=== PATIENT | male | born 1950 | race Caucasian/White ===

== ENCOUNTER 2017-10-04 19:53 | Emergency (ER) | payer MEDICARE, MEDICAID ==
[2017-10-04] MEDS ORDERED: BENZTROPINE MESYLATE 1 MG TABLET PO ONE (23:29)
[2017-10-04] MEDS ORDERED: PREGABALIN 50 MG CAPSULE PO ONE (23:29)
--- NOTE | 2017-10-04 23:34 | ER Document Report ---
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 The patient reports that as a dull, constant throbbing pain to the left neck worsened by range of motion of the neck. Nothing improves or worsens the pain. Patient states that he is also concerned that he has had difficulty sleeping and diffuse bilateral lower extremity pain after since his doctor discontinued his Lyrica stating he had "been on it too long". He has seen his primary care doctor regarding this neck pain and was told that it was likely musculoskeletal in origin but was concerned that the pain was not abating so came to the emergency department tonight. He denies any focal weakness, numbness, chest pain or shortness of breath. He did see a neurologist regarding his involuntary movement disorder and was told that he has tardive dyskinesia although has never been on antipsychotic in the past. TRAVEL OUTSIDE OF THE [place] IN LAST 30 DAYS: No - Related Data Allergies/Adverse Reactions: gabapentin [From Neurontin] Allergy (Verified 10/04/17 19:58) Past Medical History - General Information source: Patient, Relative - Social History Smoking Status: Never Smoker Frequency of alcohol use: None Drug Abuse: None Lives with: Family Family History: Reviewed & Not Pertinent - Past Medical History Cardiac Medical History: Reports: Hx Hypercholesterolemia, Hx Hypertension GI Medical History: Reports: Hx Gastroesophageal Reflux Disease Psychiatric Medical History: Reports: Hx Depression Past Surgical History: Reports: Hx Urinary Tract Surgery, Hx Vascular Surgery Review of Systems - Review of Systems Notes: Constitutional: Negative for fever. HENT: Negative for sore throat. Eyes: Negative for visual changes. Cardiovascular: Negative for chest pain. Respiratory: Negative for shortness of breath. Gastrointestinal: Negative for abdominal pain, vomiting or diarrhea. Genitourinary: Negative for dysuria. Musculoskeletal: Positive for left-sided neck pain Skin: Negative for rash. Neurological: Negative for headaches, weakness or numbness. 10 point ROS negative except as marked above and in HPI. Physical Exam - Vital signs Vitals: Temp Pulse Resp BP Pulse Ox 98.3 F 91 18 141/89 H 96 10/04/17 20:05 10/04/17 20:05 10/04/17 20:05 10/04/17 20:05 10/04/17 20:05 Interpretation: Normal Notes: PHYSICAL EXAMINATION: GENERAL: Well-appearing, well-nourished and in no acute distress. HEAD: Atraumatic, normocephalic. EYES: Pupils equal round and reactive to light, extraocular movements intact, sclera anicteric, conjunctiva are normal. ENT: nares patent, oropharynx clear without exudates. Moist mucous membranes. NECK: Normal range of motion, supple without lymphadenopathy LUNGS: Breath sounds clear to auscultation bilaterally and equal. No wheezes rales or rhonchi. HEART: Regular rate and rhythm without murmurs ABDOMEN: Soft, nontender, normoactive bowel sounds. No guarding, no rebound. No masses appreciated. EXTREMITIES: Normal range of motion, no pitting or edema. No cyanosis. Pain on palpation of the left sternocleidomastoid muscle. NEUROLOGICAL: Patient is moving almost uncontrollably. Really moving his head back and forth. Intermittently moving his bilateral upper and lower 70s without any specific repetitive pattern. Face symmetric. Tongue protrudes midline. Extraocular motions intact. Pupils are 2 mm and equally reactive. Normal speech, normal gait. 5 out of 5 strength in both the distal and proximal upper and lower extremities bilaterally. Sensation is grossly intact throughout. Finger to nose testing normal. Pronator drift normal. PSYCH: Mildly anxious SKIN: Warm, Dry, normal turgor, no rashes or lesions noted. Course - Re-evaluation Re-evalutation: 10/04/17 23:33 Patient presents with concerns of left-sided neck pain. Pain is likely secondary to the patient's involuntary movement disorder as the patient clearly moves his head and neck around vigorously almost continuously. He also has apparent involuntary movements involving the bilateral upper and lower extremities. He has seen a neurologist who diagnosed with tardive dyskinesia although this seems somewhat improbable as the patient has never been on antipsychotic of any kind. The patient is also requesting a refill of his Lyrica as he states that he has run out of this medication and has been unable to sleep since running out. No indication for labs or imaging. Patient's clinical history is consistent with a chronic involuntary movement disorder with associated musculoskeletal irritation of the sternocleidal mastoid muscle on the left. I have encouraged the patient follow-up with [facility] [facility] for reassessment as I am skeptical the initial diagnosis of tardive dyskinesia. Will also provide the patient a course of Cogentin and see if this improves his symptoms. At this time will discharge with return precautions and follow-up recommendations. Verbal discharge instructions given a the bedside and opportunity for questions given. Medication warnings reviewed. Patient is in agreement with this plan and has verbalized understanding of return precautions and the need for primary care follow-up in the next 24-72 hours. - Vital Signs Vital signs: Temp Pulse Resp BP Pulse Ox 98.0 F 85 19 121/86 H 98 10/04/17 23:52 10/04/17 23:52 10/04/17 23:52 10/04/17 23:52 10/04/17 23:52 Discharge - Discharge Clinical Impression: Dystonia, Involuntary movements, Neck pain on left side Condition: Good Disposition: HOME, SELF-CARE Additional Instructions: Please take Cogentin 1 mg twice daily for 2 weeks and see if this does not improve your symptoms. Your Lyrica has been represcribed. For your pain: Take ibuprofen 600 mg and acetaminophen 1000 mg every 6 hours together as needed for pain. May also apply topical lidocaine patches that can be purchased over-the- counter to the affected area. Return if you worsening of her symptoms, persistent vomiting or any other symptoms that are worrisome to you. Follow-up with neurology as we discussed. Prescriptions: Benztropine Mesylate [Cogentin 1 mg Tablet] 1 tab PO BID #30 tab Pregabalin [Lyrica 50 Mg Capsule] 50 mg PO TID #90 capsule Referrals: NELY RODRIGES MD [Primary Care Provider] - Follow up as needed
[2017-10-04 23:53] VITALS: BP 121/86
== END 2017-10-04 23:52 | disposition home or self-care (01) ==
LOC: EDSEX → ER 19:53
DX: G24.9 Dystonia, unspecified (principal); M54.2 Cervicalgia; M79.604 Pain in right leg; M79.605 Pain in left leg; I10 Essential (primary) hypertension; Z88.6 Allergy status to analgesic agent
CPT/HCPCS: 99283; A9270 ×2; J3490

== ENCOUNTER 2017-10-17 16:40 | Emergency (ER) | payer MEDICARE, MEDICAID ==
[2017-10-17 16:51] VITALS: BP 142/69
--- NOTE | 2017-10-17 17:25 | ER Document Report ---
ED Medical Screen (RME) - General Chief Complaint: Near Syncope Stated Complaint: POSSIBLE SYNCOPE Time Seen by Provider: 10/17/17 17:05 Mode of Arrival: Ambulatory Information source: Patient Notes: This is a 66-year-old man with a history of chronic neuropathic pain, and involuntary movement disorder, orthostatic hypotension, who presents to the emergency room after a fainting spell after getting up quickly. He denies chest pain, shortness of breath, nausea vomiting. He denies any new weakness. He does complain of some low back pain and a contusion over the right foot. TRAVEL OUTSIDE OF THE [place] IN LAST 30 DAYS: No - HPI Onset: Just prior to arrival Onset/Duration: Sudden Quality of pain: Stabbing Severity: Moderate Pain Level: 2 Associated Symptoms: denies: Chest pain, Fever, Shortness of breath Exacerbated by: Movement Relieved by: Denies Similar symptoms previously: No Recently seen / treated by doctor: No - Related Data Smoking: Non-smoker Frequency of alcohol use: None Drug Abuse: None Allergies/Adverse Reactions: gabapentin [From Neurontin] Allergy (Verified 10/17/17 16:41) Past Medical History - General Information source: Patient - Social History Chew tobacco use (# tins/day): No Frequency of alcohol use: None Drug Abuse: None Lives with: Family Family history: None - Past Medical History Cardiac Medical History: Reports: Hx Hypercholesterolemia, Hx Hypertension Neurological Medical History: Reports: Other - Involuntary movement disorder Renal/ Medical History: Denies: Hx Peritoneal Dialysis GI Medical History: Reports: Hx Gastroesophageal Reflux Disease Psychiatric Medical History: Reports: Hx Depression Past Surgical History: Reports: Hx Urinary Tract Surgery, Hx Vascular Surgery Review of Systems - Review of Systems Constitutional: denies: Chills, Fever EENT: No symptoms reported Cardiovascular: No symptoms reported Respiratory: No symptoms reported Gastrointestinal: No symptoms reported Genitourinary: No symptoms reported Male Genitourinary: No symptoms reported Musculoskeletal: See HPI Skin: No symptoms reported Hematologic/Lymphatic: No symptoms reported Neurological/Psychological: No symptoms reported Physical Exam - Vital signs Vitals: Temp Pulse Resp BP Pulse Ox 97.8 F 77 18 142/69 H 97 10/17/17 16:50 10/17/17 16:50 10/17/17 16:50 10/17/17 16:50 10/17/17 16:50 Notes: Physical exam: GENERAL: 86-year-old man, alert and oriented 3, distress HEAD: Atraumatic, normocephalic. EYES: Pupils equal round and reactive to light, extraocular movements intact, sclera anicteric, conjunctiva are normal. ENT: TMs normal, nares patent, oropharynx clear without exudates. Moist mucous membranes. NECK: Normal range of motion, supple without obvious mass or JVD. LUNGS: Breath sounds clear to auscultation bilaterally and equal. No wheezes rales or rhonchi. HEART: Regular rate and rhythm without murmurs, rubs or gallops. ABDOMEN: Soft, normoactive bowel sounds. No tenderness to palpation. No guarding, no rebound. No masses appreciated. EXTREMITIES: Normal range of motion, no pitting or edema. No clubbing or cyanosis. He does have some ecchymoses over the first and second metatarsals of the second foot. This good pulses distally. Good sensation. No bony crepitus. No tenderness. Mild tenderness over the sacrum and the back. NEUROLOGICAL: Cranial nerves II through XII grossly intact. Normal speech, moving all extremities. PSYCH: Normal mood, normal affect. SKIN: Warm, Dry, normal turgor, no rashes or lesions noted. Course - Vital Signs Vital signs: Temp Pulse Resp BP Pulse Ox 97.8 F 77 18 142/69 H 97 10/17/17 16:50 10/17/17 16:50 10/17/17 16:50 10/17/17 16:50 10/17/17 16:50 Doctor's Discharge - Discharge Clinical Impression: Orthostatic hypertension Condition: Stable Disposition: HOME, SELF-CARE Instructions: Orthostatic Hypotension ([facility]) Additional Instructions: Recommendations: Given your complicated medical picture, it is recommended that you have a good primary care doctor locally that can coordinate your care. Ultimately, many of your specialist care should continue at [facility]. I left the number for some internal medicine physicians that are affiliated with this hospital. Dr. Do Whitt [address], [place] [address] [phone] Dr La Address: [address] [place] [address] [place] [address] Dr Louis Address: [address] [place] [address] [place] [address] Other recommendations: Stay well hydrated (many of the medicines you are taking will try you out and worsen the orthostatic hypotension). Continue the Lyrica and amitriptyline for pain. Continue the other medicines. Return to the emergency room for worsening pain or any concerns or getting worse.
== END 2017-10-17 17:30 | disposition home or self-care (01) ==
LOC: ER 16:40
DX: I95.1 Orthostatic hypotension (principal); G62.9 Polyneuropathy, unspecified; M54.5 Low back pain; S90.31XA Contusion of right foot, initial encounter; W19.XXXA Unspecified fall, initial encounter
CPT/HCPCS: 99283

== ENCOUNTER 2018-05-20 19:02 | Emergency (ER) | payer MEDICARE, MEDICAID ==
--- NOTE | 2018-05-20 19:37 | ER Document Report ---
ED Medical Screen (RME) - General Chief Complaint: Altered Mental Status Stated Complaint: confusion, pain, slurred speach Time Seen by Provider: 05/20/18 19:30 Notes: 67-year-old male patient brought the emergency room by his daughter for altered mental status manifested as confusion, auditory hallucinations, and slurred speech. Started about 11 PM today after he left a doctor's office appointment. He has had a similar episode 2 years ago and a neurologist in [place] worked him up and started him on Elavil. Another neurologist stopped the Elavil about 1 year ago. He has seen Dr. Evangelista here locally wants for his tardive dyskinesia and was told it could not be cured. He does have a primary care provider here locally. His symptoms have cleared at this time but is here to be checked. I have greeted and performed a rapid initial assessment of this patient. A comprehensive ED assessment and evaluation of the patient, analysis of test results and completion of the medical decision making process will be conducted by additional ED providers. TRAVEL OUTSIDE OF THE [place] IN LAST 30 DAYS: No - Related Data Allergies/Adverse Reactions: gabapentin [From Neurontin] Allergy (Verified 10/17/17 16:41) Past Medical History - Social History Family history: None - Past Medical History Cardiac Medical History: Reports: Hx Hypercholesterolemia, Hx Hypertension Renal/ Medical History: Denies: Hx Peritoneal Dialysis GI Medical History: Reports: Hx Gastroesophageal Reflux Disease Psychiatric Medical History: Reports: Hx Depression Past Surgical History: Reports: Hx Urinary Tract Surgery, Hx Vascular Surgery Physical Exam - Vital signs Vitals: Temp Pulse Resp BP Pulse Ox 98.7 F 78 20 120/66 93 05/20/18 19:13 05/20/18 19:13 05/20/18 19:13 05/20/18 19:13 05/20/18 19:13 Course - Vital Signs Vital signs: Temp Pulse Resp BP Pulse Ox 98.7 F 78 20 120/66 93 05/20/18 19:13 05/20/18 19:13 05/20/18 19:13 05/20/18 19:13 05/20/18 19:13
--- NOTE | 2018-05-20 20:11 | RADIOLOGY REPORT (SQ) ---
EXAM DESCRIPTION: CT HEAD WITHOUT COMPLETED DATE/TIME: 05/20/2018 8:02 pm REASON FOR STUDY: AMS COMPARISON: None. TECHNIQUE: Axial images acquired through the brain without intravenous contrast. Images reviewed wi th bone, brain and subdural windows. Additional sagittal and coronal reconstructions were generated. Images stored on PACS. All CT scanners at this facility use dose modulation, iterative reconstruction, and/or weight based d osing when appropriate to reduce radiation dose to as low as reasonably achievable (ALARA). [facility]: Dose Right [facility]: CareDose [facility]: Dose Right [facility]: Teradose 4D [facility]: MindBites RADIATION DOSE: CT Rad equipment meets quality standard of care and radiation dose reduction techniq ues were employed. CTDIvol: 53.2 mGy. DLP: 964 mGy-cm. mGy. LIMITATIONS: None. FINDINGS: VENTRICLES: Normal size and contour. CEREBRUM: No masses. No hemorrhage. No midline shift. No evidence for acute infarction. Normal gra y/white matter differentiation. No areas of low density in the white matter. CEREBELLUM: No masses. No hemorrhage. No alteration of density. No evidence for acute infarction. EXTRAAXIAL SPACES: No fluid collections. No masses. ORBITS AND GLOBE: No intra- or extraconal masses. Normal contour of globe without masses. CALVARIUM: No fracture. PARANASAL SINUSES: No fluid or mucosal thickening. SOFT TISSUES: No mass or hematoma. OTHER: No other significant finding. IMPRESSION: NORMAL BRAIN CT WITHOUT CONTRAST. EVIDENCE OF ACUTE STROKE: NO. COMMENT: Quality ID # [id number]: Final reports with documentation of one or more dose reduction techniques (e.g., Automated exposure control, adjustment of the mA and/or kV according to patient size, use of iterative reconstruction technique) TECHNICAL DOCUMENTATION: JOB ID: [id number] [employer] [facility]- All Rights Reserved Reading location - IP/workstation name: [email or web address]
[2018-05-20 20:16] LABS: ABSOLUTE EOSINOPHILS # (AUTO) 0.2 10^3/uL (0.0-0.6); ABSOLUTE LYMPHOCYTES (AUTO) 1.5 10^3/uL (0.5-4.7); ABSOLUTE MONOCYTES (AUTO) 0.5 10^3/uL (0.1-1.4); ABSOLUTE NEUT (AUTO) 3.8 10^3/uL (1.7-8.2); BASOPHILS % (AUTO) 0.7 % (0-2); EOSINOPHILS % (AUTO) 3.6 % (0-6); HEMATOCRIT 36.1 % (37.9-51.0); HEMOGLOBIN 11.9 g/dL (13.5-17.0); MEAN CORPUSCULAR HEMOGLOBIN 27.6 pg (27.0-33.4); MEAN CORPUSCULAR HGB CONC 32.9 g/dL (32.0-36.0); MEAN CORPUSCULAR VOLUME 84 fl (80-97); MONOCYTES % (AUTO) 8.8 % (3-13); PLATELET COUNT 185 10^3/uL (150-450); RED BLOOD COUNT 4.29 10^6/uL (4.35-5.55); RED CELL DISTRIBUTION WIDTH 14.8 % (11.5-14.0); SEGMENTED NEUTROPHILS % (AUTO) 61.9 % (42-78); TOTAL CELLS COUNTED % (AUTO) 100 %; WHITE BLOOD COUNT 6.2 10^3/uL (4.0-10.5)
[2018-05-20 20:42] LABS: ALANINE AMINOTRANSFERASE 34 U/L (21-72); ALBUMIN 3.9 g/dL (3.5-5.0); ALKALINE PHOSPHATASE 97 U/L (38-126); ANION GAP 9 (5-19); ASPARTATE AMINO TRANSFERASE 32 U/L (17-59); BILIRUBIN,DIRECT 0.3 mg/dL (0.0-0.4); BILIRUBIN,TOTAL 0.7 mg/dL (0.2-1.3); BLOOD UREA NITROGEN 14 mg/dL (7-20); CALCIUM 8.8 mg/dL (8.4-10.2); CARBON DIOXIDE 29 mmol/L (22-30); CHLORIDE 102 mmol/L (98-107); GLUCOSE 102 mg/dL (75-110); POTASSIUM 4.2 mmol/L (3.6-5.0); SODIUM 139.7 mmol/L (137-145); TOTAL PROTEIN 6.5 g/dL (6.3-8.2)
[2018-05-20 20:53] LABS: APPEARANCE,URINE CLEAR; BILIRUBIN,URINE NEGATIVE (NEGATIVE); COLOR,URINE YELLOW; GLUCOSE, URINE NEGATIVE (NEGATIVE); KETONES,URINE NEGATIVE (NEGATIVE); LEUKOCYTE ESTERASE,URINE SMALL (NEGATIVE); NITRITE,URINE NEGATIVE (NEGATIVE); PROTEIN,URINE NEGATIVE (NEGATIVE)
[2018-05-20] MEDS ORDERED: CEPHALEXIN 500 MG CAPSULE PO ONE (21:16)
--- NOTE | 2018-05-20 21:18 | ER Document Report ---
ED General - General Chief Complaint: Altered Mental Status Stated Complaint: confusion, pain, slurred speach Time Seen by Provider: 05/20/18 19:30 Notes: Patient is a 67-year-old male with a past medical history of hypertension, hyperlipidemia, prior history of bladder cancer who presents with concerns of intermittent confusion throughout the day today. He is here with family member who reports that earlier today prior to coming to the emergency department the patient seemed extremely confused, weak, was almost having difficulty walking. They report that he has intermittent had symptoms in the past with associated infections and are concerned that he may have the same today. At time of my assessment the patient is she denies any complaints, states he feels much better than he did earlier. Nothing seemed to improve or worsen his symptoms when present. He does note some increased urinary frequency and urinary hesitancy. He denies headache, neck pain, chest pain, shortness of breath, or abdominal pain. He has not seen his primary care doctor regarding today's concerns. TRAVEL OUTSIDE OF THE [place] IN LAST 30 DAYS: No - Related Data Allergies/Adverse Reactions: gabapentin [From Neurontin] Allergy (Verified 10/17/17 16:41) Past Medical History - General Information source: Patient - Social History Smoking Status: Never Smoker Chew tobacco use (# tins/day): No Frequency of alcohol use: None Drug Abuse: None Lives with: Family Family History: Reviewed & Not Pertinent Patient has suicidal ideation: No Patient has homicidal ideation: No - Past Medical History Cardiac Medical History: Reports: Hx Hypercholesterolemia, Hx Hypertension Renal/ Medical History: Denies: Hx Peritoneal Dialysis GI Medical History: Reports: Hx Gastroesophageal Reflux Disease Psychiatric Medical History: Reports: Hx Depression Past Surgical History: Reports: Hx Urinary Tract Surgery, Hx Vascular Surgery Review of Systems - Review of Systems Notes: Constitutional: Negative for fever. HENT: Negative for sore throat. Eyes: Negative for visual changes. Cardiovascular: Negative for chest pain. Respiratory: Negative for shortness of breath. Gastrointestinal: Negative for abdominal pain, vomiting or diarrhea. Genitourinary: Positive for urinary frequency and hesitancy Musculoskeletal: Negative for back pain. Skin: Negative for rash. Neurological: Negative for headaches, weakness or numbness. Positive for altered mental status now resolved 10 point ROS negative except as marked above and in HPI. Physical Exam - Vital signs Vitals: Temp Pulse Resp BP Pulse Ox 98.7 F 78 20 120/66 93 05/20/18 19:13 05/20/18 19:13 05/20/18 19:13 05/20/18 19:13 05/20/18 19:13 Interpretation: Normal Notes: PHYSICAL EXAMINATION: GENERAL: Well-appearing, well-nourished and in no acute distress. HEAD: Atraumatic, normocephalic. EYES: Pupils equal round and reactive to light, extraocular movements intact, sclera anicteric, conjunctiva are normal. ENT: nares patent, oropharynx clear without exudates. Moderately dry mucous membranes. NECK: Normal range of motion, supple without lymphadenopathy LUNGS: Breath sounds clear to auscultation bilaterally and equal. No wheezes rales or rhonchi. HEART: Regular rate and rhythm without murmurs ABDOMEN: Soft, nontender, normoactive bowel sounds. No guarding, no rebound. No masses appreciated. EXTREMITIES: Normal range of motion, no pitting or edema. No cyanosis. NEUROLOGICAL: Face symmetric. Tongue protrudes midline. Extraocular motions intact. Pupils are 2 mm and equally reactive. Normal speech, normal gait. 5 out of 5 strength in both the distal and proximal upper and lower extremities bilaterally. Sensation is grossly intact throughout. Finger to nose testing normal. Pronator drift normal. PSYCH: Normal mood, normal affect. SKIN: Warm, Dry, normal turgor, no rashes or lesions noted. Course - Re-evaluation Re-evalutation: 05/20/18 21:15 Patient presents with his family due to concerns of having some altered mental status earlier today which has now spontaneously resolved. Currently the patien t and family at the bedside deny any concerns or symptoms. Patient is awake, alert and oriented. He has no focal neurologic deficits on exam. Ambulance without any difficulty. Abdominal exam benign. Labs are notable for findings consistent with a urinary tract infection which could result in some of the patient's earlier symptoms. The urine culture has been sent. Patient has been started on cephalexin. A CT of the head that was obtained in triage was noted to be normal. The patient does not have any signs or symptoms to suggest an acute stroke, VA, occult sepsis, or any alternative life-threatening pathology. At this time will discharge with return precautions and follow-up recomme ndations. Verbal discharge instructions given a the bedside and opportunity for questions given. Medication warnings reviewed. Patient is in agreement with this plan and has verbalized understanding of return precautions and the need for primary care follow-up in the next 24-72 hours. - Vital Signs Vital signs: Temp Pulse Resp BP Pulse Ox 98.7 F 78 14 131/71 H 95 05/20/18 19:13 05/20/18 20:38 05/20/18 21:01 05/20/18 21:00 05/20/18 21:01 - Laboratory Result Diagrams: 05/20/18 20:05 05/20/18 20:05 Laboratory results interpreted by me: 05/20/18 05/20/18 05/20/18 19:55 20:05 20:05 RBC 4.29 L Hgb 11.9 L Hct 36.1 L RDW 14.8 H Creatinine 1.43 H Est GFR (Non-Af Amer) 49 L Urine Urobilinogen 2.0 H Ur Leukocyte Esterase SMALL H - Diagnostic Test Radiology reviewed: Image reviewed, Reports reviewed Radiology results interpreted by me: 05/20/18 21:16 CT head: No acute intracranial bleed or mass Discharge - Discharge Clinical Impression: Altered mental status Qualifiers: Altered mental status type: transient alteration of awareness Qualified Code(s): R40.4 - Transient alteration of awareness Urinary tract infection Qualifiers: Urinary tract infection type: acute cystitis Hematuria presence: without hematuria Qualified Code(s): N30.00 - Acute cystitis without hematuria Condition: Good Disposition: HOME, SELF-CARE Additional Instructions: Your urine shows findings consistent with a urinary tract infection. This may also have caused the confusion you experienced earlier but that was gone by the time you got here. The remainder of your labs and the CT scan of your head are normal. Please take all the antibiotics as directed even if your symptoms have improved. Please follow-up with your primary care physician within the next 24- 48 hours.. Return to emergency room if you develop fever >101F, have recurrent concerning confusion, persistent vomiting, become lethargic, have severe pain in your sides, or any other symptoms that are concerning to you. Prescriptions: Cephalexin Monohydrate [Keflex 500 mg Capsule] 500 mg PO Q6H 7 Days capsule Referrals: KYM PERSON, NOTE SPECIALIST-C [Primary Care Provider] - Follow up tomorrow
[2018-05-20 21:32] VITALS: BP 131/71
== END 2018-05-20 21:36 | disposition home or self-care (01) ==
LOC: ER 19:02
DX: N30.00 Acute cystitis without hematuria (principal); R40.4 Transient alteration of awareness; R35.0 Frequency of micturition; R39.11 Hesitancy of micturition; I10 Essential (primary) hypertension
CPT/HCPCS: 99285; 36415; 87086; 85025; 87088; 80053; 81001; 87186; 70450; A9270

== ENCOUNTER 2018-09-30 19:24 | Emergency (ER) | payer MEDICARE, MEDICAID ==
[2018-09-30] MEDS ORDERED: OXYCODONE-ACETAMINOPHEN 5-325 MG TABLET PO ONE (21:11)
--- NOTE | 2018-09-30 21:13 | ER Document Report ---
ED Medical Screen (RME) - General Chief Complaint: Leg Swelling Stated Complaint: FEET/LEG SWELLING Time Seen by Provider: 09/30/18 21:03 Primary Care Provider: KYM PERSON FNP-C [Primary Care Provider] - Follow up as needed Notes: Patient is a 67-year-old male presents to the emergency room with bilateral lower extremity swelling. Patient states he has had this swelling for last 2 days. States it is very painful. States he does have a history of gout but this does not feel like a typical gout flareup. States he also has a history of pulmonary embolus and has filters placed in his IVC. Patient's denying any history of congestive heart failure. Patient denies any respiratory distress or chest pain. GENERAL: Alert, interacts well. No acute distress. EXTREMITIES: Moves all 4 extremities spontaneously. normal radial and dorsalis pedis pulses bilaterally. No cyanosis. Swelling noted bilateral lower extremities +1 pitting. I have greeted and performed a rapid initial assessment of this patient. A comprehensive ED assessment and evaluation of the patient, analysis of test results and completion of the medical decision making process will be conducted by additional ED providers. This medical record was dictated with voice recognizing software. There may be grammatical, syntax errors that are unintended. TRAVEL OUTSIDE OF THE [place] IN LAST 30 DAYS: No - Related Data Allergies/Adverse Reactions: gabapentin [From Neurontin] Allergy (Verified 09/30/18 21:02) Past Medical History - Social History Frequency of alcohol use: None Drug Abuse: None Family history: None - Past Medical History Cardiac Medical History: Reports: Hx Hypercholesterolemia, Hx Hypertension Renal/ Medical History: Denies: Hx Peritoneal Dialysis GI Medical History: Reports: Hx Gastroesophageal Reflux Disease Psychiatric Medical History: Reports: Hx Depression Past Surgical History: Reports: Hx Urinary Tract Surgery, Hx Vascular Surgery Physical Exam - Vital signs Vitals: Temp Pulse Resp BP Pulse Ox 97.5 F 67 18 144/78 H 96 09/30/18 19:55 09/30/18 19:55 09/30/18 19:55 09/30/18 19:55 09/30/18 19:55 Course - Vital Signs Vital signs: Temp Pulse Resp BP Pulse Ox 97.5 F 67 18 144/78 H 96 09/30/18 19:55 09/30/18 19:55 09/30/18 19:55 09/30/18 19:55 09/30/18 19:55 Doctor's Discharge - Discharge Referrals: KYM PERSON, DISPLAY MAKER-C [Primary Care Provider] - Follow up as needed
--- NOTE | 2018-09-30 23:00 | RADIOLOGY REPORT (SQ) ---
EXAM DESCRIPTION: US EXTREMITY VEINS BILATERAL COMPLETED DATE/TME: 09/30/2018 21:10 CLINICAL HISTORY: 67 years, Male, BL swelling COMPARISON: None. TECHNIQUE: LIMITATIONS: None. FINDINGS: Venous Doppler waveforms are pulsatile, possibly indicating right heart disease. The common femoral, femoral, popliteal, posterior tibial and peroneal veins are patent and compressible bilaterally. IMPRESSION: Venous Doppler waveforms are pulsatile, raising the possibility of right heart disease. No evidence of deep venous thrombosis. copyright 2010 [employer]- All Rights Reserved
[2018-09-30 23:01] LABS: ABSOLUTE BASOPHILS # (AUTO) 0.1 10^3/uL (0.0-0.2); ABSOLUTE EOSINOPHILS # (AUTO) 0.3 10^3/uL (0.0-0.6); ABSOLUTE LYMPHOCYTES (AUTO) 1.4 10^3/uL (0.5-4.7); ABSOLUTE MONOCYTES (AUTO) 0.3 10^3/uL (0.1-1.4); ABSOLUTE NEUT (AUTO) 2.7 10^3/uL (1.7-8.2); BASOPHILS % (AUTO) 1.2 % (0-2); EOSINOPHILS % (AUTO) 5.3 % (0-6); HEMATOCRIT 37.1 % (37.9-51.0); HEMOGLOBIN 12.4 g/dL (13.5-17.0); LYMPHOCYTES % (AUTO) 29.9 % (13-45); MEAN CORPUSCULAR HEMOGLOBIN 27.7 pg (27.0-33.4); MEAN CORPUSCULAR HGB CONC 33.4 g/dL (32.0-36.0); MEAN CORPUSCULAR VOLUME 83 fl (80-97); MONOCYTES % (AUTO) 7.1 % (3-13); PLATELET COUNT 166 10^3/uL (150-450); RED BLOOD COUNT 4.48 10^6/uL (4.35-5.55); RED CELL DISTRIBUTION WIDTH 14.6 % (11.5-14.0); SEGMENTED NEUTROPHILS % (AUTO) 56.5 % (42-78); TOTAL CELLS COUNTED % (AUTO) 100 %; WHITE BLOOD COUNT 4.8 10^3/uL (4.0-10.5)
[2018-09-30 23:11] LABS: ALANINE AMINOTRANSFERASE 32 U/L (21-72); ALKALINE PHOSPHATASE 120 U/L (38-126); ANION GAP 9 (5-19); ASPARTATE AMINO TRANSFERASE 28 U/L (17-59); BILIRUBIN,DIRECT 0.4 mg/dL (0.0-0.4); BILIRUBIN,TOTAL 0.5 mg/dL (0.2-1.3); BLOOD UREA NITROGEN 17 mg/dL (7-20); CALCIUM 9.3 mg/dL (8.4-10.2); CARBON DIOXIDE 31 mmol/L (22-30); CHLORIDE 101 mmol/L (98-107); GLUCOSE 126 mg/dL (75-110); POTASSIUM 4.2 mmol/L (3.6-5.0); SODIUM 140.6 mmol/L (137-145); TOTAL PROTEIN 6.9 g/dL (6.3-8.2); URIC ACID 4.5 mg/dL (3.5-8.5)
[2018-10-01] MEDS ORDERED: OXYCODONE-ACETAMINOPHEN 5-325 MG TABLET PO ONE (03:10)
--- NOTE | 2018-10-01 03:16 | ER Document Report ---
ED General - General Chief Complaint: Leg Swelling Stated Complaint: FEET/LEG SWELLING Time Seen by Provider: 09/30/18 21:03 Primary Care Provider: KYM PERSON FNP-C [Primary Care Provider] - Follow up as needed Notes: 67-year-old male presents emergency department, 9/3 day history of pain to his bilateral lower extremities that he states is "all" low descriptors, states it is sharp and stabbing and dull and aching and throbbing and burning. States it is intermittent but worsened with walking. States it does not feel similar to his gout. Denies any fevers or chills, denies any shortness of breath, denies any injury to his feet. States he has been told in the past that he has neuropathy. Denies any similar pain in the past. States his usual 7.5 mg of hydrocodone at home that he is on for pain management is not working. TRAVEL OUTSIDE OF THE [place] IN LAST 30 DAYS: No - Related Data Allergies/Adverse Reactions: gabapentin [From Neurontin] Allergy (Verified 09/30/18 21:02) Past Medical History - General Information source: Patient, Relative - Social History Smoking Status: Former Smoker Frequency of alcohol use: None Drug Abuse: None Family History: Reviewed & Not Pertinent Patient has suicidal ideation: No Patient has homicidal ideation: No - Past Medical History Cardiac Medical History: Reports: Hx Hypercholesterolemia, Hx Hypertension Renal/ Medical History: Denies: Hx Peritoneal Dialysis GI Medical History: Reports: Hx Gastroesophageal Reflux Disease Psychiatric Medical History: Reports: Hx Depression Past Surgical History: Reports: Hx Urinary Tract Surgery, Hx Vascular Surgery Review of Systems - Review of Systems Constitutional: No symptoms reported Cardiovascular: See HPI, Edema Musculoskeletal: See HPI -: Yes All other systems reviewed and negative Physical Exam - Vital signs Vitals: Temp Pulse Resp BP Pulse Ox 97.5 F 67 18 144/78 H 96 09/30/18 19:55 09/30/18 19:55 09/30/18 19:55 09/30/18 19:55 09/30/18 19:55 Interpretation: Hypertensive - Notes Notes: GENERAL: Alert, interacts well. No acute distress. HEAD: Normocephalic, atraumatic EYES: Pupils equal, round and reactive to light, extraocular movements intact. ENT: Oral mucosa moist, tongue midline. NECK: Full range of motion, supple, trachea midline. LUNGS: No respiratory distress, trace crackles at the bases, no wheezes or rhonchi.. HEART: Regular rate and rhythm, no murmurs, gallops, rubs. ABDOMEN: Soft, nontender, nondistended, bowel sounds present in all 4 quadrants. EXTREMITIES: Moves all 4 extremities spontaneously, 1+ pitting edema of the right leg, no pitting edema to the left leg, radial and dorsalis pedis pulses 2/4 bilaterally. No cyanosis. Mild erythema to the medial malleolus and lateral aspect of the right heel. No lymphangitic streaking, no specific lesions noted. Nontender palpation. NEUROLOGICAL: Alert and oriented x3, normal speech. PSYCH: Normal mood, normal affect. SKIN: Warm, Dry. Course - Re-evaluation Re-evalutation: 10/01/18 03:13 CBC shows mild anemia with hemoglobin 12.4, no leukocytosis, CMP shows chronic renal failure with a creatinine of 1.53, it was 1.43 in April, proBNP normal, venous Doppler study does not show a DVT. Discussed with patient that I really do not know what exactly is causing his pain at this time, there is no evidence of trauma, this is not consistent with gout, it is somewhat suspicious for neuropathy however patient is already taking Lyrica 100 mg 3 times a day and I am hesitant to increase this in the setting of renal failure that is not chronically followed. Recommended that the patient wrap his foot and keep it elevated, he may have a mild early cellulitis or this may resolve simply with elevation and compression. Patient is given a [id number] prescription for antibiotics and will be discharged to home. 10/01/18 03:15 patient will be placed in an [place] wrap to help mobilize the fluid. - Vital Signs Vital signs: Temp Pulse Resp BP Pulse Ox 97.5 F 67 18 144/78 H 96 09/30/18 19:55 09/30/18 19:55 09/30/18 19:55 09/30/18 19:55 10/01/18 02:00 - Laboratory Result Diagrams: 09/30/18 22:25 09/30/18 22:25 Laboratory results interpreted by me: 09/30/18 09/30/18 22:25 22:25 Hgb 12.4 L Hct 37.1 L RDW 14.6 H Carbon Dioxide 31 H Creatinine 1.53 H Est GFR ( Amer) 55 L Est GFR (Non-Af Amer) 46 L Glucose 126 H Discharge - Discharge Clinical Impression: Bilateral lower extremity pain, Swelling of both lower extremities Condition: Stable Disposition: HOME, SELF-CARE Additional Instructions: I am uncertain what is causing your pain and your swelling. It may be from your neuropathy, but you are already taking Lyrica. May be an early skin infection called cellulitis. Please leave your foot wrapped and elevated for the next 24 hours if the swelling and redness improves then do not take the antibiotic otherwise please start taking the antibiotic as directed until it is gone. Return for increasing swelling, increasing pain, fevers or any new or concerning symptoms. Prescriptions: Cephalexin Monohydrate [Keflex 500 mg Capsule] 500 mg PO Q6H 7 Days capsule Referrals: KYM PERSON, GOVERNMENT AFFAIRS DIRECTOR-C [Primary Care Provider] - Follow up as needed
[2018-10-01 04:14] VITALS: BP 140/76
--- NOTE | 2018-10-01 11:15 | EKG REPORT ---
SEVERITY:- NORMAL ECG - SINUS RHYTHM : Confirmed by: Ella Horton 01-Oct-2018 11:14:14
== END 2018-10-01 04:14 | disposition home or self-care (01) ==
LOC: ER 19:24
DX: M79.89 Other specified soft tissue disorders (principal); M79.662 Pain in left lower leg; M79.661 Pain in right lower leg; E78.00 Pure hypercholesterolemia, unspecified; I10 Essential (primary) hypertension
CPT/HCPCS: 93005; 99284; 36415; 84550; 85025; 80053; 83880; 93970; 93010; A9270 ×2

== ENCOUNTER 2018-10-17 13:27 | Emergency (ER) | payer MEDICARE, MEDICAID ==
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
[2018-10-17 17:01] LABS: ABSOLUTE BASOPHILS # (AUTO) 0.1 10^3/uL (0.0-0.2); ABSOLUTE EOSINOPHILS # (AUTO) 0.2 10^3/uL (0.0-0.6); ABSOLUTE LYMPHOCYTES (AUTO) 1.4 10^3/uL (0.5-4.7); ABSOLUTE MONOCYTES (AUTO) 0.4 10^3/uL (0.1-1.4); ABSOLUTE NEUT (AUTO) 3.2 10^3/uL (1.7-8.2); EOSINOPHILS % (AUTO) 3.2 % (0-6); HEMOGLOBIN 13.5 g/dL (13.5-17.0); LYMPHOCYTES % (AUTO) 27.4 % (13-45); MEAN CORPUSCULAR HEMOGLOBIN 27.1 pg (27.0-33.4); MEAN CORPUSCULAR HGB CONC 32.9 g/dL (32.0-36.0); MEAN CORPUSCULAR VOLUME 82 fl (80-97); MONOCYTES % (AUTO) 6.9 % (3-13); PLATELET COUNT 224 10^3/uL (150-450); RED BLOOD COUNT 4.99 10^6/uL (4.35-5.55); RED CELL DISTRIBUTION WIDTH 14.2 % (11.5-14.0); SEGMENTED NEUTROPHILS % (AUTO) 61.5 % (42-78); TOTAL CELLS COUNTED % (AUTO) 100 %; WHITE BLOOD COUNT 5.1 10^3/uL (4.0-10.5)
[2018-10-17 17:32] LABS: ALANINE AMINOTRANSFERASE 39 U/L (21-72); ALBUMIN 4.5 g/dL (3.5-5.0); ALKALINE PHOSPHATASE 101 U/L (38-126); ANION GAP 11 (5-19); ASPARTATE AMINO TRANSFERASE 30 U/L (17-59); BILIRUBIN,DIRECT 0.4 mg/dL (0.0-0.4); BILIRUBIN,TOTAL 0.5 mg/dL (0.2-1.3); BLOOD UREA NITROGEN 21 mg/dL (7-20); CALCIUM 9.7 mg/dL (8.4-10.2); CARBON DIOXIDE 29 mmol/L (22-30); CHLORIDE 102 mmol/L (98-107); GLUCOSE 110 mg/dL (75-110); LIPASE 122.2 U/L (23-300); POTASSIUM 4.6 mmol/L (3.6-5.0); SODIUM 142.2 mmol/L (137-145); TOTAL PROTEIN 7.3 g/dL (6.3-8.2)
[2018-10-17 20:27] LABS: APPEARANCE,URINE SLIGHTLY-CLOUDY; BILIRUBIN,URINE NEGATIVE (NEGATIVE); COLOR,URINE YELLOW; GLUCOSE, URINE NEGATIVE (NEGATIVE); KETONES,URINE NEGATIVE (NEGATIVE); LEUKOCYTE ESTERASE,URINE NEGATIVE (NEGATIVE); NITRITE,URINE NEGATIVE (NEGATIVE); PROTEIN,URINE NEGATIVE (NEGATIVE); URINE SPECIFIC GRAVITY 1.006; UROBILINOGEN,URINE NEGATIVE mg/dL (<2.0)
[2018-10-17 20:36] LABS: URINE AMPHETAMINES SCREEN NEGATIVE; URINE BARBITURATES SCREEN NEGATIVE; URINE BENZODIAZEPINES SCREEN NEGATIVE; URINE COCAINE SCREEN NEGATIVE; URINE MARIJUANA (THC) SCREEN NEGATIVE; URINE METHADONE SCREEN NEGATIVE; URINE PHENCYCLIDINE SCREEN NEGATIVE
--- NOTE | 2018-10-17 20:52 | ER Document Report ---
ED General - General Chief Complaint: Dizziness Stated Complaint: FALL/DIZZINESS Time Seen by Provider: 10/17/18 15:23 Primary Care Provider: KYM PERSON FNP-C [COMMUNITY BASED STAFF] - Follow up in 3-5 days Mode of Arrival: Wheelchair Notes: Patient is a 67-year-old male who presents due to concerns of increasingly frequent falls. The patient has a history of hypertension, hyperlipidemia, and a history of frequent falls and gait imbalance. He is following with his primary care doctor regarding these issues. Came to the emergency department today because he fell approximately 4-5 times a day which is more than normal. He denies any trauma was sustained during these falls. His family member at the bedside states that they are concerned about his safety given how often he is falling although note that this is been going on for months to years. Patient does not note that anything seems to improve or worsen his symptoms. He denies focal weakness, numbness, headache, neck pain or confusion. No chest pain or shortness of breath. No fever or constitutional symptoms. TRAVEL OUTSIDE OF THE [place] IN LAST 30 DAYS: No - Related Data Allergies/Adverse Reactions: gabapentin [From Neurontin] Allergy (Verified 09/30/18 21:02) Past Medical History - General Information source: Patient - Social History Smoking Status: Former Smoker Chew tobacco use (# tins/day): No Frequency of alcohol use: None Drug Abuse: None Lives with: Family Family History: Reviewed & Not Pertinent Patient has suicidal ideation: No Patient has homicidal ideation: No - Past Medical History Cardiac Medical History: Reports: Hx Hypercholesterolemia, Hx Hypertension Renal/ Medical History: Denies: Hx Peritoneal Dialysis GI Medical History: Reports: Hx Gastroesophageal Reflux Disease Psychiatric Medical History: Reports: Hx Depression Past Surgical History: Reports: Hx Urinary Tract Surgery, Hx Vascular Surgery Review of Systems - Review of Systems Notes: Constitutional: Negative for fever. HENT: Negative for sore throat. Eyes: Negative for visual changes. Cardiovascular: Negative for chest pain. Respiratory: Negative for shortness of breath. Gastrointestinal: Negative for abdominal pain, vomiting or diarrhea. Genitourinary: Negative for dysuria. Musculoskeletal: Negative for back pain. Skin: Negative for rash. Neurological: Negative for headaches, weakness or numbness. Positive for frequent falls 10 point ROS negative except as marked above and in HPI. Physical Exam - Vital signs Vitals: Temp Pulse Resp BP Pulse Ox 97.7 F 90 16 118/87 H 98 10/17/18 14:02 10/17/18 14:02 10/17/18 14:02 10/17/18 14:02 10/17/18 14:02 Interpretation: Normal Notes: PHYSICAL EXAMINATION: GENERAL: Well-appearing, well-nourished and in no acute distress. HEAD: Atraumatic, normocephalic. EYES: Pupils equal round and reactive to light, extraocular movements intact, sclera anicteric, conjunctiva are normal. ENT: nares patent, oropharynx clear without exudates. Moist mucous membranes. NECK: Normal range of motion, supple without lymphadenopathy LUNGS: Breath sounds clear to auscultation bilaterally and equal. No wheezes rales or rhonchi. HEART: Regular rate and rhythm without murmurs ABDOMEN: Soft, nontender, normoactive bowel sounds. No guarding, no rebound. No masses appreciated. EXTREMITIES: Normal range of motion, no pitting or edema. No cyanosis. NEUROLOGICAL: Face symmetric. Tongue protrudes midline. Extraocular motions intact. Pupils are 2 mm and equally reactive. Normal speech, hesitant but steady gait. 5 out of 5 strength in both the distal and proximal upper and lower extremities bilaterally. Sensation is grossly intact throughout. Finger to nose testing normal. Pronator drift normal. PSYCH: Normal mood, normal affect. SKIN: Warm, Dry, normal turgor, no rashes or lesions noted. Course - Re-evaluation Re-evalutation: 10/17/18 20:49 Patient presents with long-standing imbalance, frequent falls, feeling like he is dizzy or lightheaded. The patient and his daughter at the bedside emphasized that this is a very long-standing issue numbering order of months to if not years and that there is not anything new or different today other than that he felt today more times than usual. The patient adamantly denies any head or neck trauma. Denies any pain or trauma to any location stating that these were mild falls that he was able to brace himself and prevent any major injuries. He states that he has discussed this with his primary care doctor as well as his neurologist but no significant work-up has been undertaken. Patient has no abnormal findings on exam. Normal cerebellar testing, steady even gait. Able to walk on heels and toes. Normal proprioception. I have emphasized the patient that he could have had a cerebral infarction in the past that resulted in ongoing ataxia, potentially could have medication side effects as the patient does take multiple sedating medications including Lyrica and opiates, could have an alternative etiology of his continued imbalance. I have strongly advised against further use of motor vehicles, and have informed him that I would strongly recommend that he follow-up with his primary care doctor neurologist for consideration of physical therapy and possible MRI as an outpatient. I do not believe the patient requires an MRI here in the emergency department as I do not have a suspicion of an acute infarction given the duration of the patient's symptoms although I have emphasized the patient and his daughter at the bedside that I am concerned the patient could have had a cerebral infarction in the past. At this time will discharge with return precautions and follow-up recommendations. Verbal discharge instructions given a the bedside and opportunity for questions given. Medication warnings reviewed. Patient is in a greement with this plan and has verbalized understanding of return precautions and the need for primary care follow-up in the next 24-72 hours. - Vital Signs Vital signs: Temp Pulse Resp BP Pulse Ox 98.5 F 90 13 189/99 H 96 10/17/18 20:58 10/17/18 14:02 10/17/18 20:58 10/17/18 20:58 10/17/18 20:58 - Laboratory Result Diagrams: 10/17/18 16:37 10/17/18 16:37 Laboratory results interpreted by me: 10/17/18 10/17/18 16:37 16:37 RDW 14.2 H BUN 21 H Creatinine 1.29 H Est GFR (Non-Af Amer) 56 L Discharge - Discharge Clinical Impression: Frequent falls, Gait abnormality Condition: Good Disposition: HOME, SELF-CARE Additional Instructions: As we discussed you need to follow-up with your primary care doctor urgently for further evaluation of your frequent falls and ongoing imbalance that is been going on for months or more. It is possible that you had a stroke in the past to your balance center in your brain and an MRI of your brain could be used to better clarify if you had an old stroke. Physical therapy could also identify any additional muscular weakness that could be triggering your ongoing imbalance. Please do not drive a motor vehicle until you are cleared by your doctor or neurologist. You should use an assistive walking device at all times. Please return to the emergency department immediately if you have worsening balance, focal weakness, numbness, severe headache, chest pain, shortness of breath, nausea or vomiting Referrals: KYM PESRON FNP-C [COMMUNITY BASED STAFF] - Follow up in 3-5 days
[2018-10-17 21:04] VITALS: BP 189/99
== END 2018-10-17 21:04 | disposition home or self-care (01) ==
LOC: ER 13:27
DX: R26.9 Unspecified abnormalities of gait and mobility (principal); R42 Dizziness and giddiness; E78.00 Pure hypercholesterolemia, unspecified; I10 Essential (primary) hypertension; Z91.81 History of falling
CPT/HCPCS: 36415; 80053; 80307; 81001; 82553; 83690; 85025; 99284

== ENCOUNTER 2019-02-19 11:17 | Inpatient (IN) | payer MEDICARE, MEDICAID ==
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
[2019-02-19 12:05] LABS: ABSOLUTE EOSINOPHILS # (AUTO) 0.2 10^3/uL (0.0-0.6); ABSOLUTE LYMPHOCYTES (AUTO) 1.3 10^3/uL (0.5-4.7); ABSOLUTE MONOCYTES (AUTO) 0.4 10^3/uL (0.1-1.4); ABSOLUTE NEUT (AUTO) 2.8 10^3/uL (1.7-8.2); BASOPHILS % (AUTO) 0.8 % (0-2); EOSINOPHILS % (AUTO) 4.7 % (0-6); HEMATOCRIT 33.6 % (37.9-51.0); HEMOGLOBIN 11.2 g/dL (13.5-17.0); LYMPHOCYTES % (AUTO) 27.1 % (13-45); MEAN CORPUSCULAR HEMOGLOBIN 27.3 pg (27.0-33.4); MEAN CORPUSCULAR HGB CONC 33.3 g/dL (32.0-36.0); MEAN CORPUSCULAR VOLUME 82 fl (80-97); PLATELET COUNT 180 10^3/uL (150-450); RED BLOOD COUNT 4.09 10^6/uL (4.35-5.55); RED CELL DISTRIBUTION WIDTH 15.6 % (11.5-14.0); SEGMENTED NEUTROPHILS % (AUTO) 59.4 % (42-78); TOTAL CELLS COUNTED % (AUTO) 100 %; WHITE BLOOD COUNT 4.8 10^3/uL (4.0-10.5)
[2019-02-19 12:09] LABS: INTERNATIONAL RATION (INR) 0.97; PROTHROMBIN TIME 12.9 SEC (11.4-15.4)
[2019-02-19 12:10] LABS: PARTIAL THROMBOPLASTIN TIME 37.5 SEC (23.5-35.8)
--- NOTE | 2019-02-19 12:27 | RADIOLOGY REPORT (SQ) ---
EXAM DESCRIPTION: CT HEAD WITHOUT COMPLETED DATE/TIME: 02/19/2019 12:16 pm REASON FOR STUDY: AMS COMPARISON: CT brain 05/20/2018 TECHNIQUE: Axial images acquired through the brain without intravenous contrast. Images reviewed wi th bone, brain and subdural windows. Additional sagittal and coronal reconstructions were generated. Images stored on PACS. All CT scanners at this facility use dose modulation, iterative reconstruction, and/or weight based d osing when appropriate to reduce radiation dose to as low as reasonably achievable (ALARA). [facility]: Dose Right [facility]: CareDose [facility]: Dose Right [facility]: Teradose 4D [facility]: [employer] RADIATION DOSE: CT Rad equipment meets quality standard of care and radiation dose reduction techniq ues were employed. CTDIvol: 53.2 mGy. DLP: 964 mGy-cm. mGy. LIMITATIONS: None. FINDINGS: VENTRICLES: Normal size and contour. CEREBRUM: No masses. No hemorrhage. No midline shift. No evidence for acute infarction. Normal gra y/white matter differentiation. No areas of low density in the white matter. CEREBELLUM: No masses. No hemorrhage. No alteration of density. No evidence for acute infarction. EXTRAAXIAL SPACES: No fluid collections. No masses. ORBITS AND GLOBE: No intra- or extraconal masses. Normal contour of globe without masses. CALVARIUM: No fracture. PARANASAL SINUSES: No fluid or mucosal thickening. SOFT TISSUES: No mass or hematoma. OTHER: No other significant finding. IMPRESSION: NORMAL BRAIN CT WITHOUT CONTRAST. EVIDENCE OF ACUTE STROKE: NO. COMMENT: Quality ID # [id number]: Final reports with documentation of one or more dose reduction techniques (e.g., Automated exposure control, adjustment of the mA and/or kV according to patient size, use of iterative reconstruction technique) TECHNICAL DOCUMENTATION: JOB ID: [id number] [employer]- All Rights Reserved Reading location - IP/workstation name: [email or web address]
[2019-02-19 12:29] LABS: ALBUMIN 3.9 g/dL (3.5-5.0); ALKALINE PHOSPHATASE 114 U/L (38-126); ANION GAP 8 (5-19); ASPARTATE AMINO TRANSFERASE 38 U/L (17-59); BILIRUBIN,DIRECT 0.3 mg/dL (0.0-0.4); BILIRUBIN,TOTAL 0.6 mg/dL (0.2-1.3); BLOOD UREA NITROGEN 22 mg/dL (7-20); CALCIUM 9.4 mg/dL (8.4-10.2); CARBON DIOXIDE 29 mmol/L (22-30); CHLORIDE 104 mmol/L (98-107); CREATINE KINASE 279 U/L (55-170); GLUCOSE 98 mg/dL (75-110); POTASSIUM 4.5 mmol/L (3.6-5.0); TOTAL PROTEIN 6.5 g/dL (6.3-8.2)
--- NOTE | 2019-02-19 12:30 | RADIOLOGY REPORT (SQ) ---
EXAM DESCRIPTION: CHEST SINGLE VIEW COMPLETED DATE/TIME: 02/19/2019 12:19 pm REASON FOR STUDY: AMS COMPARISON: None. EXAM PARAMETERS: NUMBER OF VIEWS: One view. TECHNIQUE: Single frontal radiographic view of the chest acquired. RADIATION DOSE: NA LIMITATIONS: None. FINDINGS: LUNGS AND PLEURA: No acute infiltrates or effusions. MEDIASTINUM AND HILAR STRUCTURES: No masses. Contour normal. HEART AND VASCULAR STRUCTURES: Normal heart and pulmonary vasculature. BONES: Dorsal spondylosis. HARDWARE: None in the chest. OTHER: No other significant finding. IMPRESSION: NO ACUTE DISEASE. TECHNICAL DOCUMENTATION: JOB ID: [id number] [employer]- All Rights Reserved Reading location - IP/workstation name: [email or web address]
[2019-02-19 12:42] LABS: TROPONIN I < 0.012 ng/mL
--- NOTE | 2019-02-19 13:26 | ER Document Report ---
ED General - General Chief Complaint: Altered Mental Status Stated Complaint: POSSIBLE STROKE/AMS Time Seen by Provider: 02/19/19 11:22 Mode of Arrival: Wheelchair TRAVEL OUTSIDE OF THE [place] IN LAST 30 DAYS: No - HPI Notes: This is a 68-year-old gentleman who presents today with a complaint of confusion ever since Wednesday. Family describes hallucinations. Patient has been thinking there are people around the house when there is nobody. He denies any focal weakness. He denies any visual or speech changes. Family notes that he had a similar presentation in the past when he was diagnosed with a urinary tract infection. They wonder if that is a situation now. He denies any new medication. He denies any recent illness. Patient also states that he has been having unsteadiness in his gait recently. Describes his symptoms as moderate. There are no obvious aggravating or relieving factors. - Related Data Allergies/Adverse Reactions: gabapentin [From Neurontin] Allergy (Verified 09/30/18 21:02) Past Medical History - General Information source: Patient, Relative - Daughter daughter - Social History Smoking Status: Never Smoker Frequency of alcohol use: None Family History: Reviewed & Not Pertinent Patient has suicidal ideation: No Patient has homicidal ideation: No - Past Medical History Cardiac Medical History: Reports: Hx Hypercholesterolemia, Hx Hypertension Renal/ Medical History: Denies: Hx Peritoneal Dialysis GI Medical History: Reports: Hx Gastroesophageal Reflux Disease Psychiatric Medical History: Reports: Hx Depression Past Surgical History: Reports: Hx Urinary Tract Surgery, Hx Vascular Surgery Review of Systems - Review of Systems Cardiovascular: denies: Chest pain Gastrointestinal: denies: Abdominal pain, Diarrhea, Nausea Genitourinary: denies: Burning, Frequency, Flank pain Neurological/Psychological: Confusion, Hallucinations. denies: Weakness, Headaches, Speech impairment, Numbness, Suicidal ideation -: Yes All other systems reviewed and negative Physical Exam - Vital signs Vitals: Temp Pulse Resp BP Pulse Ox 97.4 F 83 16 114/67 94 02/19/19 11:22 02/19/19 11:22 02/19/19 11:22 02/19/19 11:22 02/19/19 11:22 - General General appearance: Appears well, Alert - Respiratory Respiratory status: No respiratory distress Chest status: Nontender Breath sounds: Normal Chest palpation: Normal - Cardiovascular Rhythm: Regular Heart sounds: Normal auscultation Murmur: No - Abdominal Inspection: Normal Distension: No distension Bowel sounds: Normal Tenderness: Nontender Organomegaly: No organomegaly - Extremities General upper extremity: Normal inspection, Nontender, Normal color, Normal ROM, Normal temperature General lower extremity: Normal inspection, Nontender, Normal color, Normal ROM, Normal temperature. No: Brenden's sign - Neurological Neuro grossly intact: Yes Cognition: Normal Orientation: AAOx4 Juli Coma Scale Eye Opening: Spontaneous Juli Coma Scale Verbal: Oriented [place] Coma Scale Motor: Obeys Commands Juli Coma Scale Total: 15 Speech: Normal Cerebellar coordination: Normal, Finger-nose rhombey, Rapid alt. movements Motor strength normal: LUE, RUE, LLE, RLE Sensory: Normal Notes: Nonfocal neurologic exam. There is no motor, sensory or cerebellar deficits. GCS is 15.NIH Stroke score is 0. Course - Re-evaluation Re-evalutation: 02/19/19 13:26 Differential diagnosis includes urinary tract infection versus elect light abnormality versus dehydration. Doubt acute CVA. 02/19/19 14:30 Patient reevaluated. Patient is doing well. Labs and CT unremarkable. Given complaints of unsteady gait, I will get an MRI to rule out cerebellar CVA. 02/19/19 18:43 MRI reviewed. Consistent with CVA. Patient is doing well. No focal neurologic findings on exam. Patient's care discussed with hospitalist. Will admit for CV A management. Patient is not a candidate for TPA as symptoms have been ongoing for some time now, and patient has an NIHSS of 0. - Vital Signs Vital signs: Temp Pulse Resp BP Pulse Ox 97.4 F 80 15 135/81 H 96 02/19/19 13:00 02/19/19 11:27 02/19/19 18:01 02/19/19 18:01 02/19/19 18:01 - Laboratory Result Diagrams: 02/19/19 11:50 02/19/19 11:50 Laboratory results interpreted by me: 02/19/19 02/19/19 02/19/19 11:50 11:50 11:50 RBC 4.09 L Hgb 11.2 L Hct 33.6 L RDW 15.6 H APTT 37.5 H BUN 22 H Creatinine 1.26 H Est GFR (MDRD) Non-Af 57 L Creatine Kinase 279 H CK-MB (CK-2) 02/19/19 11:50 RBC Hgb Hct RDW APTT BUN Creatinine Est GFR (MDRD) Non-Af Creatine Kinase CK-MB (CK-2) 4.80 H Discharge - Discharge Clinical Impression: CVA (cerebral vascular accident) Qualifiers: CVA mechanism: unspecified Qualified Code(s): I63.9 - Cerebral infarction, unspecified Condition: Good Disposition: ADMITTED INPATIENT Admitting Provider: Nicolas (Hospitalist) Unit Admitted: [facility] NIH Stroke Scale - NIH Stroke Scale *: 1. NIH scale should be completed with appropriate accompanying assessment tools. *: 2. The NIH should reflect what the patient is capable of doing and should not be coached by the clinician. 1a. Level of Consciousness: 0=Alert;keenly responsive -: 1=Drowsy -: 2=Obtunded -: 3=Coma/unresponsive or reflex to noxious stimuli. 1a. Responses: 0 1b. Orientation Questions: a. What month is it? -: b. How old are you? -: 0=Answers both questions correctly. -: 1=Answers one question correctly or patient is intubated or has orotracheal trauma. -: 2=Answers neither question correctly. 1b. Responses: 0 1c. Response to commands: a. Open and close eyes? -: b. Global Coordinator and release hand? -: Credit is given despite weakness. Demonstration of task is permitted. Substitute command if hands cannot be used. -: 0=Performs both tasks correctly -: 1=Performs one task correctly -: 2=Performs neither task correctly 1c. Responses: 0 2. Gaze: Establish eye contact and instruct patient to "Follow my finger" -: 0=Normal -: 1=Partial gaze palsy. Gaze is abnormal in one or both eyes, but where forced deviation or total gaze paresis is not present. -: 2=Forced deviation or total gaze paresis. 2. Responses: 0 3. Visual Engel: Sees fingers in all four quadrants. -: 0=No visual loss. -: 1=Partial hemianopsia. -: 2=Complete hemianopsia. -: 3=Bilateral hemianopsia (including Cortical blindness) 3. Responses: 0 4. Facial Movement: Instruct patient to: -: a. Show me your teeth -: b. Raise your eyebrows -: c. Close your eyes -: d. Smile -: 0=Normal symmetrical movement -: 1=Minor paralysis (flattened nasolabial fold, asymmetry on smiling). -: 2=Partial paralysis (total or near total paralysis of lower face). -: 3=Complete paralysis of upper and lower face 4. Responses: 0 5. Motor functions (left arm): Alternate sides and extend each arm with palms down (90 degrees if sitting or 45 degrees for supine). -: 0=No drift;limb holds for full 10 seconds. -: 1=Drift; limb holds but drifts down before full 10 seconds, but does not hit bed. -: 2=Some effort against gravity; limb cannot get to or maintain position. -: 3=No effort against gravity; limb falls. -: 4=No movement. -: UN=Amputation, joint fusion, explain in comments. 5. Responses (left arm): 0 5. Motor Functions (right arm): Alternate sides and extend each arm with palms down (90 degrees if sitting or 45 degrees for supine). -: 0=No drift;limb holds for full 10 seconds. -: 1=Drift; limb holds but drifts down before full 10 seconds, but does not hit bed. -: 2=Some effort against gravity; limb cannot get to or maintain position. -: 3=No effort against gravity; limb falls. -: 4=No movement. -: UN=Amputation, joint fusion, explain in comments. 5. Responses (right arm): 0 6. Motor Functions (left leg): With patient lying supine, alternate sides and extend each leg (30 degrees always while supine). -: 0=No drift, leg holds position for full 5 seconds -: 1=Drift; leg falls before full 5 seconds but does not hit bed. -: 2=Some effort against gravity, leg falls to bed but some effort against gravity. -: 3=No effort against gravity, leg falls to bed immediately. -: 4=No movement. -: UN=Amputation, joint fusion; explain in comments. 6. Responses (left leg): 0 6. Motor Functions (right leg): With patient lying supine, alternate sides and extend each leg (30 degrees always while supine). -: 0=No drift, leg holds position for full 5 seconds -: 1=Drift; leg falls before full 5 seconds but does not hit bed. -: 2=Some effort against gravity, leg falls to bed but some effort against gravity. -: 3=No effort against gravity, leg falls to bed immediately. -: 4=No movement. -: UN=Amputation, joint fusion; explain in comments. 6. Responses (right leg): 0 7. Limb Ataxia: With eyes open instruct patient to: -: a. "Touch your finger to your nose". -: b. "Touch your heel to your macias" -: 0=Absent -: 1=Present in one limb. -: 2=Present in two limbs. -: UN=Amputation or joint fusion; explain in comments. 7. Responses: 0 8. Sensory: Test sensation using pinprick or noxious stimuli. Test as many body parts as possible. -: 0=Normal;no sensory loss -: 1=Mile to moderate sensory loss (patient feels pin prick but is less sharp on affected side). -: 2=Severe or total sensory loss. 8. Responses: 0 9. Best Language: Instruct patient to: -: a. "Describe what you see in this picture." -: b. "Name the items in this picture." -: c. "Read these sentences." -: 0=No aphasia, normal -: 1=Mild to moderate aphasia. -: 2=Severe aphasia -: 3=Mute, global aphasia, no usable speech or auditory comprehension. 9. Responses: 0 10. Articulation, Dysarthia: Instruct patient to: -: "Read these words" or "Repeat these words" -: 0=Normal -: 1=Mild to moderate; patient may slur some words but can be understood without difficulty. -: 2=Severe; patients speech so slurred as to be unintelligible in the absence of dysphasia. -: UN=Intubated or other physical barrier, explain in comments. 10. Responses: 0 11. Extinction or inattention: 0=No abnormality -: 1= Visual, tactile, auditory, spatial, or personal inattention or extinction to bilateral simulation in one or the sensory modalities. -: 2=Profound dorinda-inattention or dorinda-inattention to more than one modality; does not recognize own hand. 11. Responses: 0 Total Score: 0
[2019-02-19 14:10] LABS: APPEARANCE,URINE CLEAR; BILIRUBIN,URINE NEGATIVE (NEGATIVE); COLOR,URINE YELLOW; GLUCOSE, URINE NEGATIVE (NEGATIVE); KETONES,URINE NEGATIVE (NEGATIVE); LEUKOCYTE ESTERASE,URINE NEGATIVE (NEGATIVE); NITRITE,URINE NEGATIVE (NEGATIVE); PROTEIN,URINE NEGATIVE (NEGATIVE); URINE SPECIFIC GRAVITY 1.009; UROBILINOGEN,URINE NEGATIVE mg/dL (<2.0)
[2019-02-19] MEDS ORDERED: LORAZEPAM INJ 2 MG/1 ML VIAL IV ONE ×2 (14:14→16:07)
--- NOTE | 2019-02-19 17:23 | RADIOLOGY REPORT (SQ) ---
EXAM DESCRIPTION: MRI HEAD WITHOUT COMPLETED DATE/TIME: 02/19/2019 4:54 pm REASON FOR STUDY: dizziness, unsteady gait ? cerebellar infarct COMPARISON: None. TECHNIQUE: Multiplanar imaging includes non-contrasted T1, T2, FLAIR, and diffusion with ADC map seq uences. Images stored on PACS. LIMITATIONS: None. FINDINGS: ANATOMY: No anomalies. Normal vascular flow voids. Pituitary fossa normal. CSF SPACES: Normal in size and contour. No hemorrhage. CEREBRUM: Sulci and gyri normal in size and contour. Age-appropriate white matter signal on FLAIR im aging. No evidence of hemorrhage, mass, or extraaxial fluid collection. POSTERIOR FOSSA: No signal alteration. No hemorrhage. No edema, masses or mass effect. Internal stephanie tory canals, cerebello-pontine angles, mastoids normal. DIFFUSION IMAGIN mm focus of restricted diffusion in the left parietal lobe cabrera-white junction c onsistent with acute or sub-acute lacunar infarction. ORBITS: No masses. Globes normal. PARANASAL SINUSES: No fluid levels. Mucosa normal. OTHER: No other significant finding. IMPRESSION: 3 mm focus of restricted diffusion in the left parietal lobe cabrera-white junction consist ent with acute or sub-acute lacunar infarction. EVIDENCE OF ACUTE STROKE: YES. LEFT VISUAL MERCHANDISING DIRECTOR COMMENT: The findings were sent to the Radiology Results Communication Center at 17:17 on 02/19/2019 to be communicated to a licensed caregiver. TECHNICAL DOCUMENTATION: JOB ID: [id number] 2010 [employer]- All Rights Reserved Reading location - IP/workstation name: [email or web address]
[2019-02-19] MEDS ORDERED: OXYCODONE-ACETAMINOPHEN 5-325 MG TABLET PO ONE (17:36)
--- NOTE | 2019-02-19 17:47 | EKG REPORT ---
SEVERITY:- NORMAL ECG - SINUS RHYTHM : Confirmed by: Bunny Aldana MD 19-Feb-2019 17:45:37
--- NOTE | 2019-02-19 18:48 | PDOC H&P ---
History of Present Illness Admission Date/PCP: AMAN COUCH PA-C History of Present Illness: SANTIAGO LAFLEUR is a 68 year old male past medical history of bladder cancer status post surgery, with recurrent UTIs, hypertension, CKD, gout, chronic back pain, TIA, brought in by family for evaluation of confusion and loss of balance. As per patient's who was present in the room since Wednesday she has noted that he is stumbling a lot, talking to people who were not present in the room. Back in September patient presented to ED complaining of frequent falls and was attributed to UTI. Patient is comfortably sitting in bed, in no apparent distress, pleasant and cooperative with physical examination, but only oriented to self and place, does not recall date or remember who is the president. He is endorsing auditory hallucinations, but denies any focal neurological deficits. and patient denies any recreational drug abuse, recent head trauma, recent illness, recent medication changes, herbal medication use, recent travel. On physical examination there is no focal neurological deficits, is able to count backwards from 100, but not able to remember 2 words after 3 minutes. Patient denies any fever, chills, nausea, vomiting, diarrhea, constipation. In ED CBC, CMP, UA unremarkable except for elevated creatinine which is chronic. CT head was negative however MRI head showed 3 mm focus of restricted diffusion in the left parietal lobe cabrera-white matter junction. Consistent with acute or subacute lacunar infarct. Past Medical History Cardiac Medical History: Reports: Hyperlipidema, Hypertension GI Medical History: Reports: Gastroesophageal Reflux Disease Psychiatric Medical History: Reports: Depression Hematology: Reports: Anemia Past Surgical History Past Surgical History: Reports: Vascular Surgery Social History Smoking Status: Never Smoker Family History Family History: Reviewed & Not Pertinent Parental Family History Reviewed: Yes Children Family History Reviewed: Yes Sibling(s) Family History Reviewed.: Yes Medication/Allergy Home Medications: Pregabalin [Lyrica 50 Mg Capsule] 50 mg PO TID #90 capsule 10/04/17 Allopurinol [Zyloprim] 300 mg PO DAILY 09/30/18 Hydrocodone/Acetaminophen [[place] 7.5-325 Tablet] 1 each PO TID 09/30/18 Cephalexin Monohydrate [Keflex 500 mg Capsule] 500 mg PO Q6H 7 Days capsule 10/01/18 Allergies/Adverse Reactions: gabapentin [From Neurontin] Allergy (Verified 05/03/19 21:02) Physical Exam Vital Signs: Temp Pulse Resp BP Pulse Ox 97.4 F 83 13 138/89 H 96 02/19/19 13:00 02/19/19 11:22 02/19/19 14:01 02/19/19 14:01 02/19/19 14:01 Intake & Output 02/18/19 02/19/19 02/20/19 06:59 06:59 06:59 Weight 85.275 kg Results Laboratory Results: 02/19/19 11:50 02/19/19 11:50 02/19/19 02/19/19 02/19/19 11:50 11:50 13:10 WBC 4.8 RBC 4.09 L Hgb 11.2 L Hct 33.6 L MCV 82 MCH 27.3 MCHC 33.3 RDW 15.6 H Plt Count 180 Seg Neutrophils % 59.4 Sodium 141.3 Potassium 4.5 Chloride 104 Carbon Dioxide 29 Anion Gap 8 BUN 22 H Creatinine 1.26 H Est GFR ( Amer) > 60 Glucose 98 Calcium 9.4 Total Bilirubin 0.6 AST 38 Alkaline Phosphatase 114 Total Protein 6.5 Albumin 3.9 Urine Color YELLOW Urine Appearance CLEAR Urine pH 6.0 Ur Specific [place] 1.009 Urine Protein NEGATIVE Urine Glucose (UA) NEGATIVE Urine Ketones NEGATIVE Urine Blood NEGATIVE Urine Nitrite NEGATIVE Ur Leukocyte Esterase NEGATIVE Urine WBC (Auto) 4 Urine RBC (Auto) 1 02/19/19 02/19/19 11:50 11:50 Creatine Kinase 279 H CK-MB (CK-2) 4.80 H Troponin I < 0.012 Impressions: Chest X-Ray 02/19/19 11:27 IMPRESSION: NO ACUTE DISEASE. Head CT 02/19/19 11:27 IMPRESSION: NORMAL BRAIN CT WITHOUT CONTRAST. EVIDENCE OF ACUTE STROKE: NO. Head MRI 02/19/19 14:29 IMPRESSION: 3 mm focus of restricted diffusion in the left parietal lobe cabrera- white junction consistent with acute or sub-acute lacunar infarction. EVIDENCE OF ACUTE STROKE: YES. LEFT REGISTERED CLIENT ASSOCIATE Assessment and Plan - Diagnosis (1) Altered mental status Qualifiers: Altered mental status type: disorientation Qualified Code(s): R41.0 - Disorientation, unspecified Is this a current diagnosis for this admission?: Yes Plan: Unsure if this is caused by underlying lacunar infarct. CBC CMP unremarkable. UA negative. Will check ammonia level, RPR, B12, TSH. (2) CVA (cerebral vascular accident) Qualifiers: CVA mechanism: unspecified Qualified Code(s): I63.9 - Cerebral infarction, unspecified Is this a current diagnosis for this admission?: Yes Plan: Nonhemorrhagic. Risk factors are underlying hypertension. Unsure if it is controlled. MRI brain showed for 3 mm of the focus of restricted diffusion in the left parietal consistent with acute or subacute lacunar infarction. We will admit to IMCU, PT/OT/ST, antiplatelets, high intensity statins, optimize BP. Will obtain lipid panel. (3) Hypertension Is this a current diagnosis for this admission?: Yes Plan: Normotensive. Euvolemic. Restart home meds. Adjust meds as needed. (4) History of bladder cancer Is this a current diagnosis for this admission?: Yes Plan: Outpatient PCP/oncology follow-up. (5) History of gout Is this a current diagnosis for this admission?: Yes Plan: Not in acute flareup. Restart home meds. (6) CKD (chronic kidney disease) Qualifiers: Chronic kidney disease stage: stage 3 (moderate) Qualified Code(s): N18.3 - Chronic kidney disease, stage 3 (moderate) Is this a current diagnosis for this admission?: Yes Plan: Electrolytes WNL. Monitor electrolytes and volume status. Avoid nephrotoxic meds. Outpatient PCP and nephrology follow-up. (7) Opioid dependence with current use Is this a current diagnosis for this admission?: Yes Plan: Restart home meds.
[2019-02-19] MEDS ORDERED: IPRATROPIUM/ALBUTEROL 0.5-2.5 MG/3 ML AMPUL NEB PRN (18:49)
[2019-02-19] MEDS ORDERED: MAG HYDROX/AL HYDROX/SIMETH SUSP 30 ML UDCUP PO PRN (18:49)
[2019-02-19] MEDS ORDERED: NORMAL SALINE 1000 ML 1,000 ML IV PRN (18:49)
[2019-02-19] MEDS ORDERED: ACETAMINOPHEN 325 MG TABLET PO PRN (18:49)
[2019-02-19] MEDS ORDERED: ONDANSETRON 4 MG TAB.RAPDIS PO PRN (18:49)
[2019-02-19 19:11] LABS: CHOLESTEROL 144.42 mg/dL (0-200); TRIGLYCERIDES 207 mg/dL (<150)
[2019-02-19 19:22] LABS: DIRECT LDL 92 mg/dL (<100); VLDL CHOLESTEROL 41.4 mg/dL (10-31)
[2019-02-19 19:30] LABS: FREE T3 4.26 pg/mL (2.77-5.27); FREE T4 (FREE THYROXINE) 0.68 ng/dL (0.78-2.19)
[2019-02-19 19:44] LABS: THYROID STIMULATING HORMONE 1.57 uIU/mL (0.47-4.68)
--- NOTE | 2019-02-19 20:07 | RADIOLOGY REPORT (SQ) ---
EXAM DESCRIPTION: MRA HEAD WITHOUT COMPLETED DATE/TIME: 02/19/2019 7:29 pm REASON FOR STUDY: CVA COMPARISON: None. TECHNIQUE: Axial 3-D [id number] acquisition imaging performed through the brain in the area of t he [place]. Images reformatted using 3-D MIPS. LIMITATIONS: None. FINDINGS: SOURCE IMAGES: No unexpected findings on source images. No large masses. 3-D MIP: No aneurysm. No occlusions. No significant stenosis. OTHER: No other significant finding. IMPRESSION: No aneurysm. No occlusions. TECHNICAL DOCUMENTATION: JOB ID: [id number] 2010 [employer]- All Rights Reserved Reading location - IP/workstation name: [email or web address]
[2019-02-19 20:14] LABS: URINE AMPHETAMINES SCREEN NEGATIVE; URINE BARBITURATES SCREEN NEGATIVE; URINE BENZODIAZEPINES SCREEN NEGATIVE; URINE COCAINE SCREEN NEGATIVE; URINE MARIJUANA (THC) SCREEN NEGATIVE; URINE METHADONE SCREEN NEGATIVE; URINE PHENCYCLIDINE SCREEN NEGATIVE
[2019-02-19] MEDS: ATORVASTATIN CALCIUM 40 MG TABLET PO SCH (22:25)
[2019-02-19] MEDS: ASPIRIN 81 MG TABLET, CHEWABLE PO SCH (22:25)
[2019-02-20] MEDS: PANTOPRAZOLE SODIUM 40 MG TABLET.DR PO SCH ×2 (05:50→17:23)
[2019-02-20 07:11] LABS: ABSOLUTE EOSINOPHILS # (AUTO) 0.2 10^3/uL (0.0-0.6); ABSOLUTE LYMPHOCYTES (AUTO) 0.9 10^3/uL (0.5-4.7); ABSOLUTE MONOCYTES (AUTO) 0.4 10^3/uL (0.1-1.4); ABSOLUTE NEUT (AUTO) 3.5 10^3/uL (1.7-8.2); BASOPHILS % (AUTO) 0.9 % (0-2); EOSINOPHILS % (AUTO) 3.1 % (0-6); LYMPHOCYTES % (AUTO) 18.8 % (13-45); MEAN CORPUSCULAR HEMOGLOBIN 27.2 pg (27.0-33.4); MEAN CORPUSCULAR HGB CONC 33.3 g/dL (32.0-36.0); MEAN CORPUSCULAR VOLUME 82 fl (80-97); MONOCYTES % (AUTO) 7.5 % (3-13); PLATELET COUNT 195 10^3/uL (150-450); RED CELL DISTRIBUTION WIDTH 15.2 % (11.5-14.0); SEGMENTED NEUTROPHILS % (AUTO) 69.7 % (42-78); TOTAL CELLS COUNTED % (AUTO) 100 %; WHITE BLOOD COUNT 5.1 10^3/uL (4.0-10.5)
[2019-02-20 07:34] LABS: ANION GAP 8 (5-19); BLOOD UREA NITROGEN 16 mg/dL (7-20); CALCIUM 9.5 mg/dL (8.4-10.2); CARBON DIOXIDE 28 mmol/L (22-30); CHLORIDE 104 mmol/L (98-107); GLUCOSE 93 mg/dL (75-110); POTASSIUM 4.7 mmol/L (3.6-5.0)
[2019-02-20] MEDS: HYDRALAZINE HCL INJ/PF 20 MG/1 ML SDV IV PRN ×3 (09:10→17:23)
[2019-02-20] MEDS: LOSARTAN POTASSIUM 50 MG TABLET PO SCH (09:10)
[2019-02-20] MEDS: ASPIRIN 81 MG TABLET, CHEWABLE PO SCH (09:10)
[2019-02-20] MEDS: DOCUSATE SODIUM 100 MG CAPSULE PO SCH ×2 (09:11→17:23)
[2019-02-20] MEDS: ALLOPURINOL 300 MG TABLET PO SCH (09:11)
[2019-02-20] MEDS: ENOXAPARIN SODIUM INJ 40 MG/0.4 ML DISP.SYRIN SUBCUT SCH (09:12)
[2019-02-20] MEDS ORDERED: PREGABALIN 75 MG CAPSULE PO SCH (10:00)
[2019-02-20] MEDS: OXYCODONE HCL IR 5 MG TABLET PO PRN (15:21)
[2019-02-20] MEDS: OXYCODONE-ACETAMINOPHEN 5-325 MG TABLET PO PRN (15:21)
--- NOTE | 2019-02-20 15:44 | RADIOLOGY REPORT (SQ) ---
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 TECHNIQUE: Grayscale ultrasound, Doppler velocity and spectra, and color Doppler images acquired of the extra-cranial carotid and vertebral arteries. Images stored on PACS. LIMITATIONS: None. FINDINGS: RIGHT CAROTID CCA Velocities: Within normal limits. ICA Velocities Peak systolic 1.28 m/s. End diastolic 0.25 m/s. Proximal ICA/CCA peak systolic ratio 1.35. Spectra normal. No significant plaque. LEFT CAROTID CCA Velocities: Within normal limits. ICA Velocities Peak systolic 0.76 m/s. End diastolic 0.2 m/s. Proximal ICA/CCA peak systolic ratio 0.89. Smooth plaque in the carotid bulb and proximal internal carotid artery. VERTEBRAL ARTERIES: Antegrade flow. Normal waveforms. SUBCLAVIAN ARTERIES: No finding. OTHER: No other significant finding. IMPRESSION: NO HEMODYNAMICALLY SIGNIFICANT STENOSIS. COMMENT: Quality ID #[id number]: Velocity criteria are extrapolated from the diameter data as defined by t he Society of Radiologists in Ultrasound Consensus Conference. Radiology 2003: 229; 340-346. TECHNICAL DOCUMENTATION: JOB ID: [id number] [employer]- All Rights Reserved Reading location - IP/workstation name: [email or web address]
--- NOTE | 2019-02-20 17:18 | Operative Report ---
Bedside Procedure - History of Present Illness History of Present Illness: SANTIAGO LAFLEUR is a 68 year old male past medical history of bladder cancer status post surgery, with recurrent UTIs, hypertension, CKD, gout, chronic back pain, TIA, brought in by family for evaluation of confusion and loss of balance. As per patient's who was present in the room since Wednesday she has noted that he is stumbling a lot, talking to people who were not present in the room. Back in September patient presented to ED complaining of frequent falls and was attributed to UTI. Patient is comfortably sitting in bed, in no apparent distress, pleasant and cooperative with physical examination, but only oriented to self and place, does not recall date or remember who is the president. He is endorsing auditory hallucinations, but denies any focal neurological deficits. and patient denies any recreational drug abuse, recent head trauma, recent illness, recent medication changes, herbal medication use, recent travel. On physical examination there is no focal neurological deficits, is able to count backwards from 100, but not able to remember 2 words after 3 minutes. Patient denies any fever, chills, nausea, vomiting, diarrhea, constipation. In ED CBC, CMP, UA unremarkable except for elevated creatinine which is chronic. CT head was negative however MRI head showed 3 mm focus of restricted diffusion in the left parietal lobe cabrera-white matter junction. Consistent with acute or subacute lacunar infarct. Indication for Procedure: confusion Date: 02/20/19 Surgeon: JOHN DIAZ - Lumbar Puncture Lumbar puncture Consent obtained: Yes Lumbar puncture pre-procedure: Betadine prep applied, Sterile drapes applied Patient position: Lying Needle size: 20 Lumbar puncture location: L3-4 Anesthetic type: 1% Lidocaine mL's of anesthetic: 5 Amount/type of drainage: clear 11 ml Number of attempts: 2 Complications: No Notes: A time-out was performed. Usual sterile technique was maintained throughout the procedure. The patient was placed in the recumbent position with help from the nursing staff. The area was cleansed and draped in usual sterile fashion using betadine scrub. Anesthesia was achieved with 1% lidocaine. A 20-gauge 3.5-inch spinal needle was placed in the L3-4 lumbar interspace. On the 2nd attempt, clear colored cerebral spinal fluid was obtained. The opening pressure was 9 cm H20. CSF was collected into 4 tubes. These were sent for the usual tests. A sterile bandaid was placed over the puncture site. The patient had no immediate complications and tolerated the procedure well. Estimated blood loss was none.
[2019-02-20] MEDS ORDERED: TIZANIDINE HCL 4 MG TABLET PO PRN (17:40)
--- NOTE | 2019-02-20 17:45 | PDOC PROGRESS REPORT ---
Subjective Progress Note for:: 02/20/19 Subjective:: SANTIAGO LAFLEUR is a 68 year old male past medical history of bladder cancer status post surgery, with recurrent UTIs, hypertension, CKD, gout, chronic back pain, TIA, brought in by family for evaluation of confusion and loss of balance. As per patient's who was present in the room since Wednesday she has noted that he is stumbling a lot, talking to people who were not present in the room. Back in September patient presented to ED complaining of frequent falls and was attributed to UTI. Patient is comfortably sitting in bed, in no apparent distress, pleasant and cooperative with physical examination, but only oriented to self and place, does not recall date or remember who is the president. He is endorsing auditory hallucinations, but denies any focal neurological deficits. and patient denies any recreational drug abuse, recent head trauma, recent illness, recent medication changes, herbal medication use, recent travel. On physical examination there is no focal neurological deficits, is able to count backwards from 100, but not able to remember 2 words after 3 minutes. Patient denies any fever, chills, nausea, vomiting, diarrhea, constipation. In ED CBC, CMP, UA unremarkable except for elevated creatinine which is chronic. CT head was negative however MRI head showed 3 mm focus of restricted diffusion in the left parietal lobe cabrera-white matter junction. Consistent with acute or subacute lacunar infarct. 02/20/2019. Patient awake and alert however still with very erratic behavior and auditory hallucination, oriented to self and place, trying to get out of bed on multiple occasions. Has been negative so far. Had a lumbar puncture today. Psychiatry has been consulted for evaluation of any underlying psychiatric process. Unfortunately no neurology consult available here at [facility]. Reason For Visit: AMS, CVA Physical Exam Vital Signs: Temp Pulse Resp BP Pulse Ox 97.6 F 104 H 12 178/100 H 96 02/20/19 16:08 02/20/19 16:08 02/20/19 16:08 02/20/19 16:08 02/20/19 16:08 Intake & Output 02/19/19 02/20/19 02/21/19 06:59 06:59 06:59 Intake Total 720 Balance 720 Weight 86.5 kg General appearance: PRESENT: no acute distress, well-developed, well-nourished Head exam: PRESENT: atraumatic, normocephalic Neck exam: ABSENT: carotid bruit, JVD, lymphadenopathy, thyromegaly Respiratory exam: PRESENT: clear to auscultation darlene. ABSENT: rales, rhonchi, wheezes Cardiovascular exam: PRESENT: RRR. ABSENT: diastolic murmur, rubs, systolic murmur Extremities exam: PRESENT: full ROM. ABSENT: calf tenderness, clubbing, pedal edema Neurological exam: PRESENT: alert, awake, oriented to person, oriented to place, abnormal gait, CN II-XII grossly intact, motor sensory deficit Skin exam: PRESENT: dry, intact, warm. ABSENT: cyanosis, rash Results Laboratory Results: 02/20/19 06:00 02/20/19 06:00 02/19/19 02/19/19 02/19/19 18:40 18:40 18:40 WBC RBC Hgb Hct MCV MCH MCHC RDW Plt Count Seg Neutrophils % Sodium Potassium Chloride Carbon Dioxide Anion Gap BUN Creatinine Est GFR ( Amer) Glucose Calcium Ammonia < 8.7 L Triglycerides 207 H Cholesterol 144.42 LDL Cholesterol Direct 92 VLDL Cholesterol 41.4 H HDL Cholesterol 32 L TSH 1.57 Free T4 0.68 L Free T3 pg/mL 4.26 02/20/19 02/20/19 06:00 06:00 WBC 5.1 RBC 4.40 Hgb 12.0 L Hct 36.0 L MCV 82 MCH 27.2 MCHC 33.3 RDW 15.2 H Plt Count 195 Seg Neutrophils % 69.7 Sodium 140.1 Potassium 4.7 Chloride 104 Carbon Dioxide 28 Anion Gap 8 BUN 16 Creatinine 1.13 Est GFR ( Amer) > 60 Glucose 93 Calcium 9.5 Ammonia Triglycerides Cholesterol LDL Cholesterol Direct VLDL Cholesterol HDL Cholesterol TSH Free T4 Free T3 pg/mL 02/19/19 02/19/19 11:50 11:50 Creatine Kinase 279 H CK-MB (CK-2) 4.80 H Troponin I < 0.012 Impressions: Chest X-Ray 02/19/19 11:27 IMPRESSION: NO ACUTE DISEASE. Head CT 02/19/19 11:27 IMPRESSION: NORMAL BRAIN CT WITHOUT CONTRAST. EVIDENCE OF ACUTE STROKE: NO. Head MRI 02/19/19 14:29 IMPRESSION: 3 mm focus of restricted diffusion in the left parietal lobe cabrera- white junction consistent with acute or sub-acute lacunar infarction. EVIDENCE OF ACUTE STROKE: YES. LEFT [employer] Brain MRI with MRA 02/19/19 18:54 IMPRESSION: No aneurysm. No occlusions. Carotid Doppler Study 02/20/19 00:00 IMPRESSION: NO HEMODYNAMICALLY SIGNIFICANT STENOSIS. Assessment and Plan - Diagnosis (1) Altered mental status Qualifiers: Altered mental status type: disorientation Qualified Code(s): R41.0 - Dis orientation, unspecified Is this a current diagnosis for this admission?: Yes Plan: Acute encephalopathy unsure if this is caused by underlying lacunar infarct. CBC CMP unremarkable. UA negative. RPR nonreactive. Ammonia WNL. TSH WNL. UDS negative. Status post lumbar puncture to rule out any infectious causes. No neurology consult available at [facility]. I have consulted psychiatry to rule out any underlying psychiatric process. (2) CVA (cerebral vascular accident) Qualifiers: CVA mechanism: unspecified Qualified Code(s): I63.9 - Cerebral infarction, unspecified Is this a current diagnosis for this admission?: Yes Plan: Nonhemorrhagic. Risk factors are underlying hypertension. Unsure if it is controlled. MRI brain showed for 3 mm of the focus of restricted diffusion in the left parietal consistent with acute or subacute lacunar infarction. MRA head negative. 2D carotid Doppler negative. Continue telemetry PT/OT/ST, antiplatelets, high intensity statins, optimize BP. (3) Hypertension Is this a current diagnosis for this admission?: Yes Plan: Not optimized. Euvolemic. Started on Coreg. Continue ARB. PRN IV hydralazine. (4) History of bladder cancer Is this a current diagnosis for this admission?: Yes Plan: Outpatient PCP/oncology follow-up. (5) History of gout Is this a current diagnosis for this admission?: Yes Plan: Not in acute flareup. Restart home meds. (6) CKD (chronic kidney disease) Qualifiers: Chronic kidney disease stage: stage 3 (moderate) Qualified Code(s): N18.3 - Chronic kidney disease, stage 3 (moderate) Is this a current diagnosis for this admission?: Yes Plan: Electrolytes WNL. Creatinine WNL. Monitor electrolytes and volume status. Avoid nephrotoxic meds. Outpatient PCP and nephrology follow-up. (7) Opioid dependence with current use Is this a current diagnosis for this admission?: Yes Plan: Restart home meds.
[2019-02-20] MEDS ORDERED: CARVEDILOL 6.25 MG TABLET PO SCH (18:00)
[2019-02-20] MEDS ORDERED: HALOPERIDOL 1 MG TABLET PO PRN (18:10)
[2019-02-20 18:11] LABS: APPEARANCE ALL TUBES CLEAR; COLOR ALL TUBES COLORLESS; CSF TUBE NUMBER 3; VOLUME TUBE 2 2.5 CC
[2019-02-20 18:12] LABS: RED BLOOD CELL,CSF 0 /uL (0-10); WHITE BLOOD CELL,CSF 2 /uL (0-5)
[2019-02-20 18:13] LABS: GLUCOSE,CSF 51 mg/dL (40-70); PROTEIN,CSF 74 mg/dL (12-60); VOLUME TUBE 4 2.5 CC
[2019-02-20] MEDS: CLONAZEPAM 1 MG TABLET PO PRN (18:58)
[2019-02-20] MEDS: PREGABALIN 50 MG CAPSULE PO SCH (18:59)
[2019-02-20] MEDS: ATORVASTATIN CALCIUM 40 MG TABLET PO SCH (22:12)
[2019-02-20] MEDS ORDERED: DIAZEPAM INJ 10 MG/2 ML DISP.SYRIN IV PRN (23:03)
[2019-02-20] MEDS ORDERED: CHLORPROMAZINE HCL INJ 25 MG/1 ML AMPULE ONE (23:49)
[2019-02-21] MEDS: CHLORPROMAZINE HCL INJ 25 MG/1 ML AMPULE IV SCH ×3 (00:07→07:16)
[2019-02-21 04:26] LABS: ABSOLUTE EOSINOPHILS # (AUTO) 0.1 10^3/uL (0.0-0.6); ABSOLUTE LYMPHOCYTES (AUTO) 1.4 10^3/uL (0.5-4.7); ABSOLUTE MONOCYTES (AUTO) 0.7 10^3/uL (0.1-1.4); ABSOLUTE NEUT (AUTO) 5.4 10^3/uL (1.7-8.2); BASOPHILS % (AUTO) 0.3 % (0-2); EOSINOPHILS % (AUTO) 0.7 % (0-6); HEMATOCRIT 38.8 % (37.9-51.0); HEMOGLOBIN 12.9 g/dL (13.5-17.0); MEAN CORPUSCULAR HEMOGLOBIN 27.1 pg (27.0-33.4); MEAN CORPUSCULAR HGB CONC 33.4 g/dL (32.0-36.0); MEAN CORPUSCULAR VOLUME 81 fl (80-97); MONOCYTES % (AUTO) 9.6 % (3-13); PLATELET COUNT 248 10^3/uL (150-450); RED BLOOD COUNT 4.78 10^6/uL (4.35-5.55); RED CELL DISTRIBUTION WIDTH 14.9 % (11.5-14.0); SEGMENTED NEUTROPHILS % (AUTO) 71.4 % (42-78); TOTAL CELLS COUNTED % (AUTO) 100 %; WHITE BLOOD COUNT 7.6 10^3/uL (4.0-10.5)
[2019-02-21 04:45] LABS: ANION GAP 15 (5-19); BLOOD UREA NITROGEN 23 mg/dL (7-20); CALCIUM 10.1 mg/dL (8.4-10.2); CARBON DIOXIDE 20 mmol/L (22-30); CHLORIDE 106 mmol/L (98-107); GLUCOSE 108 mg/dL (75-110); POTASSIUM 3.9 mmol/L (3.6-5.0)
[2019-02-21] MEDS: PANTOPRAZOLE SODIUM 40 MG TABLET.DR PO SCH ×2 (05:16→17:03)
[2019-02-21] MEDS ORDERED: CARVEDILOL 6.25 MG TABLET PO SCH (10:00)
[2019-02-21] MEDS: DULOXETINE HCL 30 MG CAPSULE.DR PO SCH (10:06)
[2019-02-21] MEDS: PREGABALIN 50 MG CAPSULE PO SCH ×3 (10:06→17:03)
[2019-02-21] MEDS: DOCUSATE SODIUM 100 MG CAPSULE PO SCH ×2 (10:06→17:03)
[2019-02-21] MEDS: ALLOPURINOL 300 MG TABLET PO SCH ×2 (10:06→10:08)
[2019-02-21] MEDS: LOSARTAN POTASSIUM 50 MG TABLET PO SCH (10:06)
[2019-02-21] MEDS: ASPIRIN 81 MG TABLET, CHEWABLE PO SCH (10:06)
[2019-02-21] MEDS: ENOXAPARIN SODIUM INJ 40 MG/0.4 ML DISP.SYRIN SUBCUT SCH (10:07)
[2019-02-21] MEDS: HALOPERIDOL LACTATE INJ 5 MG/1 ML VIAL IV PRN ×2 (10:07→17:07)
[2019-02-21] MEDS ORDERED: METOPROLOL TARTRATE PF/INJ 5 MG/5 ML SDV IV PRN (10:29)
[2019-02-21] MEDS: QUETIAPINE FUMARATE 25 MG TABLET PO SCH ×2 (13:59→21:29)
[2019-02-21] MEDS: ATORVASTATIN CALCIUM 40 MG TABLET PO SCH (21:29)
[2019-02-21] MEDS ORDERED: QUETIAPINE FUMARATE 25 MG TABLET PO SCH (22:00)
[2019-02-22] MEDS: HALOPERIDOL LACTATE INJ 5 MG/1 ML VIAL IV PRN (00:10)
[2019-02-22] MEDS: CLONAZEPAM 1 MG TABLET PO PRN (00:10)
[2019-02-22] MEDS: HYDRALAZINE HCL INJ/PF 20 MG/1 ML SDV IV PRN (00:28)
[2019-02-22 04:49] LABS: ABSOLUTE EOSINOPHILS # (AUTO) 0.2 10^3/uL (0.0-0.6); ABSOLUTE LYMPHOCYTES (AUTO) 1.9 10^3/uL (0.5-4.7); ABSOLUTE MONOCYTES (AUTO) 0.7 10^3/uL (0.1-1.4); ABSOLUTE NEUT (AUTO) 5.5 10^3/uL (1.7-8.2); BASOPHILS % (AUTO) 0.5 % (0-2); EOSINOPHILS % (AUTO) 1.9 % (0-6); HEMATOCRIT 41.9 % (37.9-51.0); LYMPHOCYTES % (AUTO) 22.8 % (13-45); MEAN CORPUSCULAR HEMOGLOBIN 27.2 pg (27.0-33.4); MEAN CORPUSCULAR HGB CONC 33.4 g/dL (32.0-36.0); MEAN CORPUSCULAR VOLUME 81 fl (80-97); MONOCYTES % (AUTO) 8.9 % (3-13); PLATELET COUNT 265 10^3/uL (150-450); RED BLOOD COUNT 5.15 10^6/uL (4.35-5.55); RED CELL DISTRIBUTION WIDTH 15.3 % (11.5-14.0); SEGMENTED NEUTROPHILS % (AUTO) 65.9 % (42-78); TOTAL CELLS COUNTED % (AUTO) 100 %; WHITE BLOOD COUNT 8.3 10^3/uL (4.0-10.5)
[2019-02-22 05:05] LABS: ANION GAP 12 (5-19); BLOOD UREA NITROGEN 38 mg/dL (7-20); CALCIUM 9.9 mg/dL (8.4-10.2); CARBON DIOXIDE 22 mmol/L (22-30); CHLORIDE 109 mmol/L (98-107); GLUCOSE 104 mg/dL (75-110); POTASSIUM 4.1 mmol/L (3.6-5.0)
[2019-02-22] MEDS: PANTOPRAZOLE SODIUM 40 MG TABLET.DR PO SCH ×2 (06:24→17:13)
[2019-02-22] MEDS: ASPIRIN 81 MG TABLET, CHEWABLE PO SCH (09:34)
[2019-02-22] MEDS: DOCUSATE SODIUM 100 MG CAPSULE PO SCH ×2 (09:34→17:11)
[2019-02-22] MEDS: ALLOPURINOL 300 MG TABLET PO SCH ×2 (09:34→09:35)
[2019-02-22] MEDS: ENOXAPARIN SODIUM INJ 40 MG/0.4 ML DISP.SYRIN SUBCUT SCH (09:34)
[2019-02-22] MEDS: DULOXETINE HCL 30 MG CAPSULE.DR PO SCH (09:34)
[2019-02-22] MEDS: LOSARTAN POTASSIUM 50 MG TABLET PO SCH (09:34)
[2019-02-22] MEDS: PREGABALIN 50 MG CAPSULE PO SCH ×3 (09:34→17:13)
[2019-02-22] MEDS: QUETIAPINE FUMARATE 25 MG TABLET PO SCH ×2 (09:35→21:17)
[2019-02-22] MEDS ORDERED: CARVEDILOL 12.5 MG TABLET PO SCH ×2 (10:00)
[2019-02-22] MEDS: OXYCODONE-ACETAMINOPHEN 5-325 MG TABLET PO PRN (12:16)
[2019-02-22] MEDS: OXYCODONE HCL IR 5 MG TABLET PO PRN (12:16)
--- NOTE | 2019-02-22 15:42 | PDOC PROGRESS REPORT ---
Subjective Progress Note for:: 02/21/19 Subjective:: SANTIAGO LAFLEUR is a 68 year old male past medical history of bladder cancer status post surgery, with recurrent UTIs, hypertension, CKD, gout, chronic back pain, TIA, brought in by family for evaluation of confusion and loss of balance. As per patient's who was present in the room since Wednesday she has noted that he is stumbling a lot, talking to people who were not present in the room. Back in September patient presented to ED complaining of frequent falls and was attributed to UTI. Patient is comfortably sitting in bed, in no apparent distress, pleasant and cooperative with physical examination, but only oriented to self and place, does not recall date or remember who is the president. He is endorsing auditory hallucinations, but denies any focal neurological deficits. and patient denies any recreational drug abuse, recent head trauma, recent illness, recent medication changes, herbal medication use, recent travel. On physical examination there is no focal neurological deficits, is able to count backwards from 100, but not able to remember 2 words after 3 minutes. Patient denies any fever, chills, nausea, vomiting, diarrhea, constipation. In ED CBC, CMP, UA unremarkable except for elevated creatinine which is chronic. CT head was negative however MRI head showed 3 mm focus of restricted diffusion in the left parietal lobe cabrera-white matter junction. Consistent with acute or subacute lacunar infarct. 02/20/2019. Patient awake and alert however still with very erratic behavior and auditory hallucination, oriented to self and place, trying to get out of bed on multiple occasions. Has been negative so far. Had a lumbar puncture today. Psychiatry has been consulted for evaluation of any underlying psychiatric process. Unfortunately no neurology consult available here at [facility]. 02/21/2019. No significant changes in mental status. Patient is still alert, oriented to self, cooperative with physical examination however, he is very restless, still complaining of hearing voices. He denies any nausea, vomiting, diarrhea, constipation or any urinary symptoms. Reason For Visit: AMS, CVA Physical Exam Vital Signs: Temp Pulse Resp BP Pulse Ox 97.8 F 104 H 18 182/95 H 95 02/21/19 08:19 02/21/19 10:00 02/21/19 10:00 02/21/19 08:19 02/21/19 10:00 Intake & Output 02/20/19 02/21/19 02/22/19 06:59 06:59 06:59 Intake Total 720 Balance 720 Weight 86.5 kg 82.7 kg General appearance: PRESENT: no acute distress, well-developed, well-nourished Head exam: PRESENT: atraumatic, normocephalic Respiratory exam: PRESENT: clear to auscultation darlene, tachypnea. ABSENT: rales, rhonchi, wheezes Cardiovascular exam: PRESENT: RRR. ABSENT: diastolic murmur, rubs, systolic murmur GI/Abdominal exam: PRESENT: normal bowel sounds, soft. ABSENT: distended, guarding, mass, organolmegaly, rebound, tenderness Extremities exam: PRESENT: full ROM. ABSENT: calf tenderness, clubbing, pedal edema Neurological exam: PRESENT: alert, awake, oriented to person, CN II-XII grossly intact, motor sensory deficit Psychiatric exam: PRESENT: anxious, unusual affect Focused psych exam: PRESENT: internal stimuli, restlessness Skin exam: PRESENT: dry, intact, warm. ABSENT: cyanosis, rash Results Laboratory Results: 02/21/19 03:50 02/21/19 03:50 02/20/19 02/20/19 02/21/19 17:00 17:00 03:50 WBC 7.6 RBC 4.78 Hgb 12.9 L Hct 38.8 MCV 81 MCH 27.1 MCHC 33.4 RDW 14.9 H Plt Count 248 Seg Neutrophils % 71.4 Sodium Potassium Chloride Carbon Dioxide Anion Gap BUN Creatinine Est GFR ( Amer) Glucose Calcium Fluid Tube Number 3 CSF Volume 9.0 CSF Appearance CLEAR CSF Color COLORLESS CSF WBC 2 CSF RBC 0 CSF Glucose 51 CSF Total Protein 74 H 02/21/19 03:50 WBC RBC Hgb Hct MCV MCH MCHC RDW Plt Count Seg Neutrophils % Sodium 141.4 Potassium 3.9 Chloride 106 Carbon Dioxide 20 L Anion Gap 15 BUN 23 H Creatinine 1.42 H Est GFR ( Amer) > 60 Glucose 108 Calcium 10.1 Fluid Tube Number CSF Volume CSF Appearance CSF Color CSF WBC CSF RBC CSF Glucose CSF Total Protein 02/19/19 02/19/19 11:50 11:50 Creatine Kinase 279 H CK-MB (CK-2) 4.80 H Troponin I < 0.012 Impressions: Chest X-Ray 02/19/19 11:27 IMPRESSION: NO ACUTE DISEASE. Head CT 02/19/19 11:27 IMPRESSION: NORMAL BRAIN CT WITHOUT CONTRAST. EVIDENCE OF ACUTE STROKE: NO. Head MRI 02/19/19 14:29 IMPRESSION: 3 mm focus of restricted diffusion in the left parietal lobe cabrera- white junction consistent with acute or sub-acute lacunar infarction. EVIDENCE OF ACUTE STROKE: YES. 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 No occlusions. Carotid Doppler Study 02/20/19 00:00 IMPRESSION: NO HEMODYNAMICALLY SIGNIFICANT STENOSIS. Assessment and Plan - Diagnosis (1) Altered mental status Qualifiers: Altered mental status type: disorientation Qualified Code(s): R41.0 - Disorientation, unspecified Is this a current diagnosis for this admission?: Yes Plan: Patient is very restless, agitated trying to get out of bed. Still not safe for home discharge. Acute encephalopathy unsure if this is caused by underlying lacunar infarct. Noninfectious encephalitis/substance abuse or acute psychiatric disorder could be another cause. CBC CMP unremarkable. UA negative. RPR nonreactive. Ammonia WNL. TSH WNL. UDS negative. 02/21/2019. Lumbar puncture markable except for mildly elevated protein. Pending CSF culture, HSV I and II, VZV, Viral cultrue, CMV Unfortunately no neurology consult available at [facility]. I have consulted psychiatry to rule out any underlying psychiatric process. Pending recommendation. Continue PRN Haldol, supportive measures. Follow-up cultures and psych recommendations. (2) CVA (cerebral vascular accident) Qualifiers: CVA mechanism: unspecified Qualified Code(s): I63.9 - Cerebral infarction, unspecified Is this a current diagnosis for this admission?: Yes Plan: Nonhemorrhagic. Risk factors are underlying hypertension. Unsure if it is controlled. MRI brain showed for 3 mm of the focus of restricted diffusion in the left parietal consistent with acute or subacute lacunar infarction. MRA head negative. 2D carotid Doppler negative. Continue telemetry PT/OT/ST, antiplatelets, high intensity statins, optimize BP. (3) Hypertension Is this a current diagnosis for this admission?: Yes Plan: Not optimized. Likely exacerbated due to underlying restless and agitation. Euvolemic. Continue Coreg 12.5 mg p.o. twice daily, losartan 50 mg p.o. daily. PRN IV hydralazine. (4) History of bladder cancer Is this a current diagnosis for this admission?: Yes (5) History of gout Is this a current diagnosis for this admission?: Yes (6) CKD (chronic kidney disease) Qualifiers: Chronic kidney disease stage: stage 3 (moderate) Qualified Code(s): N18.3 - Chronic kidney disease, stage 3 (moderate) Is this a current diagnosis for this admission?: Yes (7) Opioid dependence with current use Is this a current diagnosis for this admission?: Yes
--- NOTE | 2019-02-22 15:51 | PDOC PROGRESS REPORT ---
Subjective Progress Note for:: 02/22/19 Subjective:: SANTIAGO LAFLEUR is a 68 year old male past medical history of bladder cancer status post surgery, with recurrent UTIs, hypertension, CKD, gout, chronic back pain, TIA, brought in by family for evaluation of confusion and loss of balance. As per patient's who was present in the room since Wednesday she has noted that he is stumbling a lot, talking to people who were not present in the room. Back in September patient presented to ED complaining of frequent falls and was attributed to UTI. Patient is comfortably sitting in bed, in no apparent distress, pleasant and cooperative with physical examination, but only oriented to self and place, does not recall date or remember who is the president. He is endorsing auditory hallucinations, but denies any focal neurological deficits. and patient denies any recreational drug abuse, recent head trauma, recent illness, recent medication changes, herbal medication use, recent travel. On physical examination there is no focal neurological deficits, is able to count backwards from 100, but not able to remember 2 words after 3 minutes. Patient denies any fever, chills, nausea, vomiting, diarrhea, constipation. In ED CBC, CMP, UA unremarkable except for elevated creatinine which is chronic. CT head was negative however MRI head showed 3 mm focus of restricted diffusion in the left parietal lobe cabrera-white matter junction. Consistent with acute or subacute lacunar infarct. 02/20/2019. Patient awake and alert however still with very erratic behavior and auditory hallucination, oriented to self and place, trying to get out of bed on multiple occasions. Has been negative so far. Had a lumbar puncture today. Psychiatry has been consulted for evaluation of any underlying psychiatric process. Unfortunately no neurology consult available here at [facility]. 02/21/2019. No significant changes in mental status. Patient is still alert, oriented to self, cooperative with physical examination however, he is very restless, still complaining of hearing voices. He denies any nausea, vomiting, diarrhea, constipation or any urinary symptoms. 02/22/2019. Since her impulsiveness and restlessness has improved significantly since being started on Seroquel, still only oriented to self, very pleasant and cooperative with physical examination, hallucinations have resolved, fever, chills, nausea, vomiting, diarrhea, constipation or any urinary symptoms. Reason For Visit: AMS, CVA Physical Exam Vital Signs: Temp Pulse Resp BP Pulse Ox 97.7 F 92 14 124/66 92 02/22/19 08:22 02/22/19 14:00 02/22/19 08:22 02/22/19 08:22 02/22/19 08:22 Intake & Output 02/21/19 02/22/19 02/23/19 06:59 06:59 06:59 Intake Total 720 720 360 Output Total 300 Balance 720 420 360 Weight 82.7 kg 80.6 kg General appearance: PRESENT: no acute distress, well-developed, well-nourished Head exam: PRESENT: atraumatic, normocephalic Respiratory exam: PRESENT: clear to auscultation darlene. ABSENT: rales, rhonchi, wheezes Cardiovascular exam: PRESENT: RRR. ABSENT: diastolic murmur, rubs, systolic murmur GI/Abdominal exam: PRESENT: normal bowel sounds, soft. ABSENT: distended, guarding, mass, organolmegaly, rebound, tenderness Neurological exam: PRESENT: alert, awake, oriented to person, oriented to place, oriented to time, oriented to situation, CN II-XII grossly intact. ABSENT: motor sensory deficit Focused psych exam: PRESENT: restlessness Results Laboratory Results: 02/22/19 03:52 02/22/19 03:52 02/22/19 02/22/19 03:52 03:52 WBC 8.3 RBC 5.15 Hgb 14.0 Hct 41.9 MCV 81 MCH 27.2 MCHC 33.4 RDW 15.3 H Plt Count 265 Seg Neutrophils % 65.9 Sodium 142.7 Potassium 4.1 Chloride 109 H Carbon Dioxide 22 Anion Gap 12 BUN 38 H Creatinine 1.36 H Est GFR ( Amer) > 60 Glucose 104 Calcium 9.9 02/19/19 02/19/19 11:50 11:50 Creatine Kinase 279 H CK-MB (CK-2) 4.80 H Troponin I < 0.012 Impressions: Chest X-Ray 02/19/19 11:27 IMPRESSION: NO ACUTE DISEASE. Head CT 02/19/19 11:27 IMPRESSION: NORMAL BRAIN CT WITHOUT CONTRAST. EVIDENCE OF ACUTE STROKE: NO. Head MRI 02/19/19 14:29 IMPRESSION: 3 mm focus of restricted diffusion in the left parietal lobe cabrera- white junction consistent with acute or sub-acute lacunar infarction. EVIDENCE OF ACUTE STROKE: YES. LEFT MANAGER MASS Brain MRI with MRA 02/19/19 18:54 IMPRESSION: No aneurysm. No occlusions. Carotid Doppler Study 02/20/19 00:00 IMPRESSION: NO HEMODYNAMICALLY SIGNIFICANT STENOSIS. Assessment and Plan - Diagnosis (1) Altered mental status Qualifiers: Altered mental status type: disorientation Qualified Code(s): R41.0 - Disorientation, unspecified Is this a current diagnosis for this admission?: Yes Plan: Restlessness and impulsiveness improved greatly since being started on Seroquel. Still disoriented, denies any hallucinations. Acute encephalopathy unsure if this is caused by underlying lacunar infarct. Noninfectious encephalitis/substance abuse or acute psychiatric disorder could be another cause. CBC CMP unremarkable. UA negative. RPR nonreactive. Ammonia WNL. TSH WNL. UDS negative. 02/21/2019. Lumbar puncture markable except for mildly elevated protein. Pending CSF culture, HSV I and II, VZV, Viral cultrue, CMV Unfortunately no neurology consult available at [facility]. Patient will greatly benefit from being evaluated by neurologist. Will make an appointment for him outpatient when discharged. I have consulted psychiatry to rule out any underlying psychiatric process. Pending recommendation. Continue Seroquel, Haldol as needed, fall, seizure precautions. Family wants to take him to rehab temporarily for safety. (2) CVA (cerebral vascular accident) Qualifiers: CVA mechanism: unspecified Qualified Code(s): I63.9 - Cerebral infarction, unspecified Is this a current diagnosis for this admission?: Yes Plan: Nonhemorrhagic. Risk factors are underlying hypertension. Unsure if it is controlled. MRI brain showed for 3 mm of the focus of restricted diffusion in the left parietal consistent with acute or subacute lacunar infarction. MRA head negative. 2D carotid Doppler negative. Continue telemetry PT/OT/ST, antiplatelets, high intensity statins, optimize BP. (3) Hypertension Is this a current diagnosis for this admission?: Yes Plan: Much improved since patient's restlessness and impulsiveness have subsided. Normotensive, euvolemic. Continue Coreg 12.5 mg p.o. twice daily, losartan 50 mg p.o. daily. PRN IV hydralazine. (4) History of bladder cancer Is this a current diagnosis for this admission?: Yes Plan: Outpatient PCP/oncology follow-up. (5) History of gout Is this a current diagnosis for this admission?: Yes Plan: Not in acute flareup. Restart home meds. (6) CKD (chronic kidney disease) Qualifiers: Chronic kidney disease stage: stage 3 (moderate) Qualified Code(s): N18.3 - Chronic kidney disease, stage 3 (moderate) Is this a current diagnosis for this admission?: Yes Plan: Electrolytes WNL. Creatinine at baseline. Baseline 1.4. Monitor electrolytes and volume status. Avoid nephrotoxic meds. Outpatient PCP and nephrology follow-up. (7) Opioid dependence with current use Is this a current diagnosis for this admission?: Yes Plan: Restart home meds.
[2019-02-22] MEDS ORDERED: CEFTRIAXONE 1 GM/D5W RTU 1 GM/50 ML RTUPB IV SCH (16:30)
[2019-02-22] MEDS: ATORVASTATIN CALCIUM 40 MG TABLET PO SCH (21:17)
[2019-02-23] MEDS: PANTOPRAZOLE SODIUM 40 MG TABLET.DR PO SCH (06:53)
[2019-02-23] MEDS: ASPIRIN 81 MG TABLET, CHEWABLE PO SCH (09:40)
[2019-02-23] MEDS: PREGABALIN 50 MG CAPSULE PO SCH (09:40)
[2019-02-23] MEDS: QUETIAPINE FUMARATE 25 MG TABLET PO SCH (09:40)
[2019-02-23] MEDS: LOSARTAN POTASSIUM 50 MG TABLET PO SCH (09:40)
[2019-02-23] MEDS: DOCUSATE SODIUM 100 MG CAPSULE PO SCH (09:40)
[2019-02-23] MEDS: DULOXETINE HCL 30 MG CAPSULE.DR PO SCH (09:40)
[2019-02-23] MEDS: ALLOPURINOL 300 MG TABLET PO SCH ×2 (09:40→09:41)
[2019-02-23] MEDS: ENOXAPARIN SODIUM INJ 40 MG/0.4 ML DISP.SYRIN SUBCUT SCH (09:41)
[2019-02-23] MEDS ORDERED: CARVEDILOL 12.5 MG TABLET PO SCH (10:00)
[2019-02-23 11:50] VITALS: BP 156/92
--- NOTE | 2019-02-27 14:34 | PDOC DISCHARGE SUMMARY ---
Impression - Admit/DC Date/PCP Admission Date/Primary Care Provider: 02/21/19 09:25 AMAN COUCH PA-C Discharge Date: 02/23/19 - Discharge Diagnosis (1) Altered mental status Is this a current diagnosis for this admission?: Yes (2) CVA (cerebral vascular accident) Is this a current diagnosis for this admission?: Yes (3) Hypertension Is this a current diagnosis for this admission?: Yes (4) History of bladder cancer Is this a current diagnosis for this admission?: Yes (5) History of gout Is this a current diagnosis for this admission?: Yes (6) CKD (chronic kidney disease) Is this a current diagnosis for this admission?: Yes (7) Opioid dependence with current use Is this a current diagnosis for this admission?: Yes - Additional Information Resuscitation Status: Full Code Discharge Diet: As Tolerated Discharge Activity: Activity As Tolerated, Balance Activity w/Rest Referrals: VEE BENOIT MD [NO LOCAL MD] - 02/27/19 1:30 pm AMAN COUCH PA-C [Primary Care Provider] - 02/27/19 10:30 am Prescriptions: Aspirin [Children's Aspirin] 81 mg PO DAILY 30 Days #30 tab.chew Carvedilol [Coreg 6.25 mg Tablet] 6.25 mg PO Q12 30 Days #60 tablet Rosuvastatin Calcium [Crestor 20 mg Tablet] 20 mg PO QHS 30 Days #30 tablet Oxycodone HCl/Acetaminophen [Oxycodon-Acetaminophen 7.5-325] 1 each PO Q8 3 Days #9 tablet Quetiapine Fumarate [Seroquel] 25 mg PO QAM 30 Days #30 tablet Quetiapine Fumarate [Seroquel] 50 mg PO QHS 30 Days #30 tablet Home Medications: Pregabalin [Lyrica 50 mg Capsule] 50 mg PO TID #90 capsule 10/04/17 Allopurinol [Zyloprim] 300 mg PO DAILY 09/30/18 Clonazepam [Klonopin 1 mg Tablet] 1 mg PO TIDP PRN 02/20/19 Duloxetine HCl [Cymbalta] 60 mg PO DAILY 02/20/19 Esomeprazole Mag Trihydrate [Nexium] 40 mg PO DAILY 02/20/19 Losartan Potassium [Cozaar 50 mg Tablet] 50 mg PO DAILY 02/20/19 Oxycodone HCl/Acetaminophen [Percocet 10-325 mg Tablet] 1 each PO Q8HP PRN 02/20/19 Tizanidine HCl [Zanaflex 4 mg Tablet] 4 mg PO Q8HP PRN 02/20/19 Aspirin [Children's Aspirin] 81 mg PO DAILY 30 Days #30 tab.chew 02/23/19 Carvedilol [Coreg 6.25 mg Tablet] 6.25 mg PO Q12 30 Days #60 tablet 02/23/19 Oxycodone HCl/Acetaminophen [Oxycodon-Acetaminophen 7.5-325] 1 each PO Q8 3 Days #9 tablet 02/23/19 Quetiapine Fumarate [Seroquel] 25 mg PO QAM 30 Days #30 tablet 02/23/19 Quetiapine Fumarate [Seroquel] 50 mg PO QHS 30 Days #30 tablet 02/23/19 Rosuvastatin Calcium [Crestor 20 mg Tablet] 20 mg PO QHS 30 Days #30 tablet 02/23/19 History of Present Illiness History of Present Illness: SANTIAGO LAFLEUR is a 68 year old male past medical history of bladder cancer status post surgery, with recurrent UTIs, hypertension, CKD, gout, chronic back pain, TIA, brought in by family for evaluation of confusion and loss of balance. As per patient's who was present in the room since Wednesday she has noted that he is stumbling a lot, talking to people who were not present in the room. Back in September patient presented to ED complaining of frequent falls and was attributed to UTI. Patient is comfortably sitting in bed, in no apparent distress, pleasant and cooperative with physical examination, but only oriented to self and place, does not recall date or remember who is the president. He is endorsing auditory hallucinations, but denies any focal neurological deficits. and patient denies any recreational drug abuse, recent head trauma, recent illness, recent medication changes, herbal medication use, recent travel. On physical examination there is no focal neurological deficits, is able to count backwards from 100, but not able to remember 2 words after 3 minutes. Patient denies any fever, chills, nausea, vomiting, diarrhea, constipation. In ED CBC, CMP, UA unremarkable except for elevated creatinine which is chronic. CT head was negative however MRI head showed 3 mm focus of restricted diffusion in the left parietal lobe cabrera-white matter junction. Consistent with acute or subacute lacunar infarct. Hospital Course Hospital Course: (1) Altered mental status Acute encephalopathy unsure if this is caused by underlying lacunar infarct. Noninfectious encephalitis/substance abuse or acute psychiatric disorder could be another cause. CBC CMP unremarkable. UA negative. RPR nonreactive. Ammonia WNL. TSH WNL. UDS negative. 02/21/2019. Lumbar puncture markable except for mildly elevated protein. HSV I and II, VZV negative. Viral cultrue, CMV pending at the time of dictation. Patient very pleasant however very restless, impulsive, with auditory hallucinations. Restlessness, impulsiveness and hallucinations greatly improved on Seroquel. But remained only oriented to self. Unfortunately no neurology consult available at [facility]. Patient would greatly benefit from being evaluated by neurologist. An appointment was made to see a neurologist at [facility] on 02/27/2019. Attempt was made to place patient in a temporary rehab for his safety but unfortunately he did not qualify. His daughter who he lives with stated that she would be okay to take him home take care of him. I consulted psychiatry to rule out any underlying psychiatric process. Patient was seen by psychiatry however no recommendation was provided. Patient was sent home on Seroquel 50 mg p.o. nightly, 25 mg p.o. daily. (2) CVA (cerebral vascular accident) Lacunar, nonhemorrhagic. Risk factors are underlying hypertension. Unsure if it is controlled. MRI brain showed for 3 mm of the focus of restricted diffusion in the left parietal consistent with acute or subacute lacunar infarction. MRA head negative. 2D carotid Doppler negative. Unsure if his behavior problems were due to CVA. No neurology consult available at home which, an appointment was made for him to see a neurologist on 02/27/2019. Was admitted to ICU, received PT/OT/ST, antiplatelets, high intensity statins, optimized BP. (3) Hypertension Much improved since patient's restlessness and impulsiveness have subsided. Normotensive, euvolemic. Started on continue Coreg 12.5 mg p.o. twice daily, losartan 50 mg p.o. daily. PRN IV hydralazine. Discharged on carvedilol and losartan. (4) History of bladder cancer Outpatient PCP/oncology follow-up. (5) History of gout Not in acute flareup. Restarted on home meds. (6) CKD (chronic kidney disease) Electrolytes WNL. Creatinine at baseline. Baseline 1.4. Monitor electrolytes and volume status. Avoid nephrotoxic meds. Out patient PCP and nephrology follow up. (7) Opioid dependence with current use Restarted on home meds. Monitored for fall and withdrawal. Physical Exam Vital Signs: Temp Pulse Resp BP Pulse Ox 97.3 F 92 16 156/92 H 94 02/23/19 11:48 02/23/19 11:48 02/23/19 11:48 02/23/19 11:48 02/23/19 11:48 Results Laboratory Results: WBC 8.3 10^3/uL (4.0-10.5) 02/22/19 03:52 RBC 5.15 10^6/uL (4.35-5.55) 02/22/19 03:52 Hgb 14.0 g/dL (13.5-17.0) 02/22/19 03:52 Hct 41.9 % (37.9-51.0) 02/22/19 03:52 MCV 81 fl (80-97) 02/22/19 03:52 MCH 27.2 pg (27.0-33.4) 02/22/19 03:52 MCHC 33.4 g/dL (32.0-36.0) 02/22/19 03:52 RDW 15.3 % (11.5-14.0) H 02/22/19 03:52 Plt Count 265 10^3/uL (150-450) 02/22/19 03:52 Lymph % (Auto) 22.8 % (13-45) 02/22/19 03:52 [place] % (Auto) 8.9 % (3-13) 02/22/19 03:52 Eos % (Auto) 1.9 % (0-6) 02/22/19 03:52 Baso % (Auto) 0.5 % (0-2) 02/22/19 03:52 Absolute Neuts (auto) 5.5 10^3/uL (1.7-8.2) 02/22/19 03:52 Absolute Lymphs (auto) 1.9 10^3/uL (0.5-4.7) 02/22/19 03:52 Absolute Monos (auto) 0.7 10^3/uL (0.1-1.4) 02/22/19 03:52 Absolute Eos (auto) 0.2 10^3/uL (0.0-0.6) 02/22/19 03:52 Absolute Basos (auto) 0.0 10^3/uL (0.0-0.2) 02/22/19 03:52 Seg Neutrophils % 65.9 % (42-78) 02/22/19 03:52 PT 12.9 SEC (11.4-15.4) 02/19/19 11:50 INR 0.97 02/19/19 11:50 APTT 37.5 SEC (23.5-35.8) H 02/19/19 11:50 Sodium 142.7 mmol/L (137-145) 02/22/19 03:52 Potassium 4.1 mmol/L (3.6-5.0) 02/22/19 03:52 Chloride 109 mmol/L (98-107) H 02/22/19 03:52 Carbon Dioxide 22 mmol/L (22-30) 02/22/19 03:52 Anion Gap 12 (5-19) 02/22/19 03:52 BUN 38 mg/dL (7-20) H 02/22/19 03:52 Creatinine 1.36 mg/dL (0.52-1.25) H 02/22/19 03:52 Est GFR ( Amer) > 60 (>60) 02/22/19 03:52 Est GFR (MDRD) Non-Af 52 (>60) L 02/22/19 03:52 Glucose 104 mg/dL (75-110) 02/22/19 03:52 Calcium 9.9 mg/dL (8.4-10.2) 02/22/19 03:52 Total Bilirubin 0.6 mg/dL (0.2-1.3) 02/19/19 11:50 Direct Bilirubin 0.3 mg/dL (0.0-0.4) 02/19/19 11:50 Neonat Total Bilirubin Not Reportable 02/19/19 11:50 Neonat Direct Bilirubin Not Reportable 02/19/19 11:50 Neonat Indirect Bili Not Reportable 02/19/19 11:50 AST 38 U/L (17-59) 02/19/19 11:50 ALT 32 U/L (<50) 02/19/19 11:50 Alkaline Phosphatase 114 U/L (38-126) 02/19/19 11:50 Ammonia < 8.7 umol/L (9-33) L 02/19/19 18:40 Creatine Kinase 279 U/L (55-170) H 02/19/19 11:50 CK-MB (CK-2) 4.80 ng/mL (<4.55) H 02/19/19 11:50 Troponin I < 0.012 ng/mL 02/19/19 11:50 Total Protein 6.5 g/dL (6.3-8.2) 02/19/19 11:50 Albumin 3.9 g/dL (3.5-5.0) 02/19/19 11:50 Triglycerides 207 mg/dL (<150) H 02/19/19 18:40 Cholesterol 144.42 mg/dL (0-200) 02/19/19 18:40 LDL Cholesterol Direct 92 mg/dL (<100) 02/19/19 18:40 VLDL Cholesterol 41.4 mg/dL (10-31) H 02/19/19 18:40 HDL Cholesterol 32 mg/dL (>40) L 02/19/19 18:40 TSH 1.57 uIU/mL (0.47-4.68) 02/19/19 18:40 Free T4 0.68 ng/dL (0.78-2.19) L 02/19/19 18:40 Free T3 pg/mL 4.26 pg/mL (2.77-5.27) 02/19/19 18:40 Urine Color YELLOW 02/19/19 13:10 Urine Appearance CLEAR 02/19/19 13:10 Urine pH 6.0 (5.0-9.0) 02/19/19 13:10 Ur Specific [place] 1.009 02/19/19 13:10 Urine Protein NEGATIVE mg/dL (NEGATIVE) 02/19/19 13:10 Urine Glucose (UA) NEGATIVE mg/dL (NEGATIVE) 02/19/19 13:10 Urine Ketones NEGATIVE mg/dL (NEGATIVE) 02/19/19 13:10 Urine Blood NEGATIVE (NEGATIVE) 02/19/19 13:10 Urine Nitrite NEGATIVE (NEGATIVE) 02/19/19 13:10 Urine Bilirubin NEGATIVE (NEGATIVE) 02/19/19 13:10 Urine Urobilinogen NEGATIVE mg/dL (<2.0) 02/19/19 13:10 Ur Leukocyte Esterase NEGATIVE (NEGATIVE) 02/19/19 13:10 Urine WBC (Auto) 4 /HPF 02/19/19 13:10 Urine RBC (Auto) 1 /HPF 02/19/19 13:10 Urine Mucus (Auto) RARE /LPF 02/19/19 13:10 Urine Ascorbic Acid NEGATIVE (NEGATIVE) 02/19/19 13:10 Fluid Tube Number 3 02/20/19 17:00 CSF Volume 9.0 CC 02/20/19 17:00 CSF Appearance CLEAR 02/20/19 17:00 CSF Color COLORLESS 02/20/19 17:00 CSF WBC 2 /uL (0-5) 02/20/19 17:00 CSF RBC 0 /uL (0-10) 02/20/19 17:00 CSF Glucose 51 mg/dL (40-70) 02/20/19 17:00 CSF Total Protein 74 mg/dL (12-60) H 02/20/19 17:00 Urine Opiates Screen UNCONFIRMED POSITIVE 02/19/19 13:10 Urine Methadone Screen NEGATIVE 02/19/19 13:10 Ur Barbiturates Screen NEGATIVE 02/19/19 13:10 Ur Phencyclidine Scrn NEGATIVE 02/19/19 13:10 Ur Amphetamines Screen NEGATIVE 02/19/19 13:10 U Benzodiazepines Scrn NEGATIVE 02/19/19 13:10 Urine Cocaine Screen NEGATIVE 02/19/19 13:10 U Marijuana (THC) Screen NEGATIVE 02/19/19 13:10 RPR NONREACTIVE (NONREACTIVE) 02/19/19 18:40 HSV I DNA PCR Negative (Negative) 02/20/19 17:00 HSV II DNA PCR Negative (Negative) 02/20/19 17:00 VZV IgM Antibody <0.91 index (0.00-0.90) 02/20/19 15:10 02/19/19 11:50 CK-MB (CK-2) 4.80 H Troponin I < 0.012 Impressions: Chest X-Ray 02/19/19 11:27 IMPRESSION: NO ACUTE DISEASE. Head CT 02/19/19 11:27 IMPRESSION: NORMAL BRAIN CT WITHOUT CONTRAST. EVIDENCE OF ACUTE STROKE: NO. Head MRI 02/19/19 14:29 IMPRESSION: 3 mm focus of restricted diffusion in the left parietal lobe cabrera- white junction consistent with acute or sub-acute lacunar infarction. EVIDENCE OF ACUTE STROKE: YES. [employer] Brain MRI with MRA 02/19/19 18:54 IMPRESSION: No aneurysm. No occlusions. Carotid Doppler Study 02/20/19 00:00 IMPRESSION: NO HEMODYNAMICALLY SIGNIFICANT STENOSIS. Stroke Is this a Stroke Patient?: Yes Stroke Pt being discharged on Anti-thrombolytic therapy?: No Reason(s) for not prescribing Anti-thrombolytic therapy:: Not indicated Stroke Pt being discharged on Anti-coagulation therapy?: Yes Reason(s) for not prescribing Anti-coagulation therapy:: Not indicated Stroke Pt being discharged on Statins?: Yes Acute Heart Failure - Is this a Heart Failure Patient?: No
[2019-02-28 11:40] LABS: HSV SOURCE CSF
== END 2019-02-23 13:45 | disposition home or self-care (01) | DRG 66 ==
LOC: ER 11:17 → INTOOBSV 18:10 → EH 18:10 → 3N 20:22 → OBSVTOIN 02-21 09:25
PROVIDERS: ADMIT Internal Medicine; ATTEND Internal Medicine
PROC: 009U3ZX Drainage of Spinal Canal, Percutaneous Approach, Diagnostic (ICD-10-PCS; principal; 2019-02-20)
DX: I63.81 Other cerebral infarction due to occlusion or stenosis of small artery (principal); I12.9 Hypertensive chronic kidney disease with stage 1 through stage 4 chronic kidney disease, or unspecified chronic kidney disease; M10.9 Gout, unspecified; G89.29 Other chronic pain; M54.9 Dorsalgia, unspecified; R29.6 Repeated falls; K21.9 Gastro-esophageal reflux disease without esophagitis; E78.5 Hyperlipidemia, unspecified; F32.9 Major depressive disorder, single episode, unspecified; D63.1 Anemia in chronic kidney disease; N18.3 Chronic kidney disease, stage 3 (moderate); E78.00 Pure hypercholesterolemia, unspecified; R29.700 NIHSS score 0; Z85.51 Personal history of malignant neoplasm of bladder; Z86.73 Personal history of transient ischemic attack (TIA), and cerebral infarction without residual deficits; Z88.6 Allergy status to analgesic agent; Z79.891 Long term (current) use of opiate analgesic
CPT/HCPCS: 36415; 70450; 70544; 70551; 71045; 80048; 80053; 80061; 80307; 81001; 82140; 82550; 82553; 82945; 84157; 84439; 84443; 84481; 84484; 85025; 85610; 85730; 86592; 86787; 87015; 87070; 87116; 87205; 87206; 87252; 87529; 89050; 93005; 93010; 93880; 96374; 96376; 99285; G0378; J0360; J0696; J1630; J1650; J2060; J3230; J3360; J3490; J7030

== ENCOUNTER 2019-03-26 01:48 | Observation (INO) | payer MEDICARE, MEDICAID ==
[2019-03-26] MEDS ORDERED: RINGERS SOLUTION,LACTATED 1,000 ML IV ONE (02:08)
--- NOTE | 2019-03-26 02:15 | ER Document Report ---
ED General - General Stated Complaint: ALTERED MENTAL STATUS Time Seen by Provider: 03/26/19 02:04 Primary Care Provider: AMAN COUCH PA-C [Primary Care Provider] - Follow up as needed TRAVEL OUTSIDE OF THE [place] IN LAST 30 DAYS: No - HPI Notes: Note history is somewhat limited as patient is confused. His daughter is currently not available. Patient describes overall generalized weakness and feeling unsteady and dizzy over the last day and a half. History of prior urinary tract infections, some mild dysuria. States he fell and struck his head on his boat today and sustained a small laceration to his right medial eyebrow region. No headache. No vomiting. Moderate intensity, gradual onset, nonradiating. No abdominal pain. No other modifying factors, no other associated symptoms, no other provocative or palliative factors. - Related Data Allergies/Adverse Reactions: gabapentin [From Neurontin] Allergy (Verified 09/30/18 21:02) Past Medical History - Social History Smoking Status: Unknown if Ever Smoked Drug Abuse: None Family History: Reviewed & Not Pertinent - Past Medical History Cardiac Medical History: Reports: Hx Hypercholesterolemia, Hx Hypertension Renal/ Medical History: Denies: Hx Peritoneal Dialysis GI Medical History: Reports: Hx Gastroesophageal Reflux Disease Psychiatric Medical History: Reports: Hx Depression Past Surgical History: Reports: Hx Urinary Tract Surgery, Hx Vascular Surgery Review of Systems - Review of Systems Notes: Review of systems as in the history of present illness, otherwise negative x 10 systems. Physical Exam - Vital signs Vitals: Resp 18 03/26/19 01:51 - Notes Notes: General: Well developed . HEENT: Normocephalic, atraumatic. Pupils equal round reactive to light. No JVD. Chest: No trauma. Respiratory: Good air exchange, normal excursion. Cardiac: Regular rhythm. No murmurs or gallops. Abdomen: Soft, benign. Nondistended. Nontender. Back: No asymmetry or gross abnormality. Motor: Grossly normal power and tone. Neurologic: Alert, nonfocal. Cranial nerves II-12 are intact. Sensation intact. Patient is confused, thinks year is 1983, unable to name the president. Vascular: Well perfused. Normal peripheral pulses. Skin: No petechiae or purpura. Course - Re-evaluation Re-evalutation: 03/26/19 02:15 38-year-old male with acute confusion, had stated history of prior urinary tract infection and bladder infections. Certainly concerning the potential for sepsis , especially given his underlying stated history of a temp of 102. Head injury puts him at increased risk for intracranial injury, will obtain CT to exclude bleed. Consider additional metabolic, endocrine or infectious etiologies, proceed with broad laboratory evaluation, radiography, reassess. 03/26/19 04:35 Patient is not febrile in the ED. CT imaging is unremarkable, chest x-ray unremarkable. Labs reviewed, CBC chemistries show no acute abnormality, chronic renal insufficiency is noted. Urine drug screen positive for opiates and barbiturates. Barbiturates may be cross-reactive with something else. Urine shows pyuria and trace bacteriuria. We will cover the patient with Rocephin given his prior history of urinary tract infections and recurrent UTIs. Etiology of his encephalopathy is unclear but likely related to polypharmacy. Given associated weakness and acute encephalopathy, admitted to the hospitalist service. - Vital Signs Vital signs: Temp Pulse Resp BP Pulse Ox 98.9 F 16 99/59 L 93 03/26/19 03:40 03/26/19 04:01 03/26/19 04:00 03/26/19 04:01 - Laboratory Result Diagrams: 03/26/19 01:56 03/26/19 01:56 Laboratory results interpreted by me: 03/26/19 03/26/19 03/26/19 01:56 01:56 01:56 Hgb 11.8 L Hct 36.5 L MCH 26.6 L RDW 14.9 H Seg Neutrophils % 78.7 H VBG pH BUN 22 H Creatinine 1.40 H Est GFR (MDRD) Non-Af 50 L Glucose 112 H Total Protein 6.2 L Urine Protein 100 H Leukocyte Esterase Rfl MODERATE H 03/26/19 02:37 Hgb Hct MCH RDW Seg Neutrophils % VBG pH 7.44 H BUN Creatinine Est GFR (MDRD) Non-Af Glucose Total Protein Urine Protein Leukocyte Esterase Rfl Discharge - Discharge Clinical Impression: Encephalopathy acute Condition: Stable Disposition: ADMITTED OBSERVATION Admitting Provider: Arsalan (Hospitalist) Unit Admitted: Telemetry Referrals: AMAN COUCH PA-C [Primary Care Provider] - Follow up as needed
[2019-03-26 02:23] LABS: ABSOLUTE EOSINOPHILS # (AUTO) 0.1 10^3/uL (0.0-0.6); ABSOLUTE LYMPHOCYTES (AUTO) 1.2 10^3/uL (0.5-4.7); ABSOLUTE MONOCYTES (AUTO) 0.6 10^3/uL (0.1-1.4); BASOPHILS % (AUTO) 0.5 % (0-2); EOSINOPHILS % (AUTO) 0.7 % (0-6); HEMATOCRIT 36.5 % (37.9-51.0); HEMOGLOBIN 11.8 g/dL (13.5-17.0); LYMPHOCYTES % (AUTO) 13.2 % (13-45); MEAN CORPUSCULAR HEMOGLOBIN 26.6 pg (27.0-33.4); MEAN CORPUSCULAR HGB CONC 32.2 g/dL (32.0-36.0); MEAN CORPUSCULAR VOLUME 83 fl (80-97); MONOCYTES % (AUTO) 6.9 % (3-13); PLATELET COUNT 163 10^3/uL (150-450); RED BLOOD COUNT 4.42 10^6/uL (4.35-5.55); RED CELL DISTRIBUTION WIDTH 14.9 % (11.5-14.0); SEGMENTED NEUTROPHILS % (AUTO) 78.7 % (42-78); TOTAL CELLS COUNTED % (AUTO) 100 %; WHITE BLOOD COUNT 8.9 10^3/uL (4.0-10.5)
[2019-03-26 02:27] LABS: APPEARANCE,URINE SLIGHTLY-CLOUDY; BILIRUBIN,URINE NEGATIVE (NEGATIVE); GLUCOSE, URINE NEGATIVE (NEGATIVE); KETONES,URINE NEGATIVE (NEGATIVE); PROTEIN,URINE 100 mg/dL (NEGATIVE); URINE SPECIFIC GRAVITY 1.021; UROBILINOGEN,URINE NEGATIVE mg/dL (<2.0)
[2019-03-26 02:28] LABS: COLOR,URINE DARK YELLOW
[2019-03-26 02:32] LABS: INTERNATIONAL RATION (INR) 1.06; PROTHROMBIN TIME 13.8 SEC (11.4-15.4)
[2019-03-26 02:47] LABS: URINE AMPHETAMINES SCREEN NEGATIVE; URINE BARBITURATES SCREEN UNCONFIRMED POSITIVE; URINE BENZODIAZEPINES SCREEN NEGATIVE; URINE COCAINE SCREEN NEGATIVE; URINE MARIJUANA (THC) SCREEN NEGATIVE; URINE METHADONE SCREEN NEGATIVE; URINE PHENCYCLIDINE SCREEN NEGATIVE
[2019-03-26 02:48] LABS: VENOUS BLOOD BASE EXCESS 0.7 mmol/L; VENOUS BLOOD HCO3 24.6 mmol/L (20-32); VENOUS BLOOD PCO2 37.1 mmHg (35-63); VENOUS BLOOD PH 7.44 (7.30-7.42)
--- NOTE | 2019-03-26 03:01 | RADIOLOGY REPORT (SQ) ---
EXAM DESCRIPTION: XR CHEST 1 VIEW COMPLETED DATE/TME: 03/26/2019 02:09 CLINICAL HISTORY: 68 years, Male, fever, AMS COMPARISON: 02/19/2019 NUMBER OF VIEWS: One TECHNIQUE: AP view the chest LIMITATIONS: None. FINDINGS: The lungs are underinflated with pulmonary vascular crowding. There is no focal consolidation. The heart is normal in size. There is no pneumothorax or pleural effusion. The bones are unremarkable. IMPRESSION: No acute cardiopulmonary abnormality copyright 2010 [employer]- All Rights Reserved
[2019-03-26 03:05] LABS: ALBUMIN 3.5 g/dL (3.5-5.0); ALKALINE PHOSPHATASE 97 U/L (38-126); ANION GAP 7 (5-19); ASPARTATE AMINO TRANSFERASE 36 U/L (17-59); BILIRUBIN,DIRECT 0.1 mg/dL (0.0-0.4); BILIRUBIN,TOTAL 0.7 mg/dL (0.2-1.3); BLOOD UREA NITROGEN 22 mg/dL (7-20); CALCIUM 8.6 mg/dL (8.4-10.2); CARBON DIOXIDE 28 mmol/L (22-30); CHLORIDE 105 mmol/L (98-107); GLUCOSE 112 mg/dL (75-110); POTASSIUM 4.1 mmol/L (3.6-5.0); TOTAL PROTEIN 6.2 g/dL (6.3-8.2)
[2019-03-26 03:06] LABS: ALCOHOL < 10 mg/dL (NONE DETECTED)
--- NOTE | 2019-03-26 03:59 | RADIOLOGY REPORT (SQ) ---
EXAM DESCRIPTION: CT HEAD WITHOUT IV CONTRAST COMPLETED DATE/TME: 03/26/2019 02:16 CLINICAL HISTORY: 68 years Male, Head injury, confused COMPARISON:Feb 19 2019 TECHNIQUE: No contrast. Coronal and sagittal reformat. This exam was performed according to our departmental dose-optimization program, which includes automated exposure control, adjustment of the mA and/or kV according to patient size and/or use of iterative reconstruction technique. FINDINGS: No hemorrhage or infarct. No mass, mass effect, or midline shift. Brain and extra-axial structures appear intact. IMPRESSION: Normal CT of the head.
[2019-03-26] MEDS ORDERED: MAG HYDROX/AL HYDROX/SIMETH SUSP 30 ML UDCUP PO PRN (04:33)
[2019-03-26] MEDS ORDERED: MAGNESIUM HYDROXIDE SUSP 30 ML UDCUP PO PRN (04:33)
[2019-03-26] MEDS ORDERED: CEFTRIAXONE 1 GM/D5W RTU 1 GM/50 ML RTUPB IV ONE (04:37)
[2019-03-26] MEDS: HEPARIN SOD (PORCINE) 5,000 UNIT/ML 1 ML VIAL SUBCUT SCH ×3 (06:05→21:21)
[2019-03-26] MEDS ORDERED: NALOXONE HCL INJ/PF 0.4 MG/1 ML SDV ONE (06:42)
[2019-03-26] MEDS ORDERED: NALOXONE HCL INJ/PF 0.4 MG/1 ML SDV IV ONE (06:49)
--- NOTE | 2019-03-26 07:00 | PDOC H&P ---
History of Present Illness Admission Date/PCP: 03/26/19 04:55 AMAN COUCH PA-C Patient complains of: Falls and confusion History of Present Illness: SANTIAGO LAFLEUR is a 68 year old male with a past medical history of hypertension, CKD, chronic pain, neuropathy, polypharmacy with Klonopin, Lyrica, Percocet and 6 recent presentations to the emergency room secondary to confusion and falls. Patient presents 48 hours of confusion, fatigue, falls resulting in bilateral brow lacerations. Is otherwise found to have an unremarkable work-up with exception to hypotension that greatly improved with Narcan. He remains unable to ambulate safely. His daughter and caregiver is unable to care for him in this condition. Past Medical History Cardiac Medical History: Reports: Hyperlipidema, Hypertension GI Medical History: Reports: Gastroesophageal Reflux Disease Psychiatric Medical History: Reports: Depression Hematology: Reports: Anemia Past Surgical History Past Surgical History: Reports: Vascular Surgery Social History Information Source: Patient, Emergency Med Personnel, [facility] / [facility] Records Smoking Status: Unknown if Ever Smoked Frequency of Alcohol Use: None Hx Prescription Drug Abuse: Yes - Advance Directive Resuscitation Status: Full Code Family History Family History: COPD Parental Family History Reviewed: Yes Children Family History Reviewed: Yes Sibling(s) Family History Reviewed.: Yes Medication/Allergy Home Medications: Allopurinol [Zyloprim] 300 mg PO DAILY 09/30/18 Clonazepam [Klonopin 1 mg Tablet] 1 mg PO TIDP PRN 02/20/19 Duloxetine HCl [Cymbalta] 60 mg PO DAILY 02/20/19 Esomeprazole Mag Trihydrate [Nexium] 40 mg PO DAILY 02/20/19 Oxycodone HCl/Acetaminophen [Percocet 10-325 mg Tablet] 1 each PO Q8HP PRN 02/20/19 Tizanidine HCl [Zanaflex 4 mg Tablet] 4 mg PO Q8HP PRN 02/20/19 Quetiapine Fumarate [Seroquel] 25 mg PO QAM 30 Days #30 tablet 02/23/19 Quetiapine Fumarate [Seroquel] 50 mg PO QHS 30 Days #30 tablet 02/23/19 Rosuvastatin Calcium [Crestor 20 mg Tablet] 20 mg PO QHS 30 Days #30 tablet 02/23/19 Aspirin [Aspirin 325 mg Tablet] 325 mg PO DAILY 03/26/19 Atenolol [Tenormin] 25 mg PO DAILY 03/26/19 Cyanocobalamin (Vitamin B-12) [B-12] 500 mcg PO DAILY 03/26/19 Ferrous Sulfate [Iron] 325 mg PO DAILY 03/26/19 Pregabalin [Lyrica 50 mg Capsule] 150 mg PO TID 03/26/19 Allergies/Adverse Reactions: gabapentin [From Neurontin] Allergy (Verified 09/30/18 21:02) Review of Systems Constitutional: PRESENT: as per HPI, fatigue. ABSENT: anorexia, chills Eyes: ABSENT: visual disturbances Ears: ABSENT: hearing changes Cardiovascular: ABSENT: chest pain, dyspnea on exertion, edema, orthropnea, palpitations Respiratory: ABSENT: cough, hemoptysis Gastrointestinal: PRESENT: constipation. ABSENT: abdominal pain, diarrhea, hematemesis, hematochezia, nausea, vomiting Genitourinary: ABSENT: dysuria, hematuria Musculoskeletal: PRESENT: back pain. ABSENT: joint swelling Integumentary: ABSENT: rash, wounds Neurological: PRESENT: as per HPI, confusion, dizziness, frequent falls, restless legs, weakness Psychiatric: ABSENT: anxiety, depression, homidical ideation, suicidal ideation Endocrine: ABSENT: cold intolerance, heat intolerance, polydipsia, polyuria Hematologic/Lymphatic: ABSENT: easy bleeding, easy bruising Physical Exam Vital Signs: Temp Pulse Resp BP Pulse Ox 98.8 F 17 98/54 L 94 03/26/19 06:38 03/26/19 06:29 03/26/19 06:00 03/26/19 06:29 Intake & Output 03/24/19 03/25/19 03/26/19 11:59 11:59 11:59 Intake Total 1050 Balance 1050 Weight 81.647 kg General appearance: PRESENT: no acute distress, cooperative, well-developed, well-nourished Head exam: PRESENT: atraumatic, normocephalic Eye exam: PRESENT: conjunctiva pink, EOMI, PERRLA. ABSENT: scleral icterus Ear exam: PRESENT: normal external ear exam Mouth exam: PRESENT: moist, tongue midline Neck exam: ABSENT: carotid bruit, JVD, lymphadenopathy, thyromegaly Respiratory exam: PRESENT: clear to auscultation darlene. ABSENT: rales, rhonchi, wheezes Cardiovascular exam: PRESENT: RRR. ABSENT: diastolic murmur, rubs, systolic murmur Pulses: PRESENT: normal dorsalis pedis pul Vascular exam: PRESENT: normal capillary refill GI/Abdominal exam: PRESENT: normal bowel sounds, soft. ABSENT: distended, guarding, mass, organolmegaly, rebound, tenderness Rectal exam: PRESENT: deferred Extremities exam: PRESENT: full ROM. ABSENT: calf tenderness, clubbing, pedal edema Neurological exam: PRESENT: alert, awake, oriented to person, oriented to place, oriented to time, oriented to situation, CN II-XII grossly intact. ABSENT: motor sensory deficit Psychiatric exam: PRESENT: normal mood, unusual affect. ABSENT: appropriate affect, homicidal ideation, suicidal ideation Skin exam: PRESENT: dry, intact, warm. ABSENT: cyanosis, rash Results Laboratory Results: 03/26/19 01:56 03/26/19 01:56 03/26/19 03/26/19 03/26/19 01:56 01:56 01:56 WBC 8.9 RBC 4.42 Hgb 11.8 L Hct 36.5 L MCV 83 MCH 26.6 L MCHC 32.2 RDW 14.9 H Plt Count 163 Seg Neutrophils % 78.7 H VBG pH VBG pCO2 VBG HCO3 VBG Base Excess Sodium 139.5 Potassium 4.1 Chloride 105 Carbon Dioxide 28 Anion Gap 7 BUN 22 H Creatinine 1.40 H Est GFR ( Amer) > 60 Glucose 112 H Lactic Acid 1.1 Calcium 8.6 Total Bilirubin 0.7 AST 36 Alkaline Phosphatase 97 Total Protein 6.2 L Albumin 3.5 Urine Color Urine Appearance Urine pH Ur Specific [place] Urine Protein Urine Glucose (UA) Urine Ketones Urine Blood Urine RBC (Auto) 03/26/19 03/26/19 01:56 02:37 WBC RBC Hgb Hct MCV MCH MCHC RDW Plt Count Seg Neutrophils % VBG pH 7.44 H VBG pCO2 37.1 VBG HCO3 24.6 VBG Base Excess 0.7 Sodium Potassium Chloride Carbon Dioxide Anion Gap BUN Creatinine Est GFR ( Amer) Glucose Lactic Acid Calcium Total Bilirubin AST Alkaline Phosphatase Total Protein Albumin Urine Color DARK YELLOW Urine Appearance SLIGHTLY-CLOUDY Urine pH 7.0 Ur Specific [place] 1.021 Urine Protein 100 H Urine Glucose (UA) NEGATIVE Urine Ketones NEGATIVE Urine Blood NEGATIVE Urine RBC (Auto) 8 Impressions: Chest X-Ray 03/26/19 02:09 IMPRESSION: No acute cardiopulmonary abnormality copyright 2011 [employer]- All Rights Reserved Head CT 03/26/19 02:16 IMPRESSION: Normal CT of the head. Assessment and Plan - Diagnosis (1) Encephalopathy acute Is this a current diagnosis for this admission?: Yes Plan: Secondary to polypharmacy, withhold Lyrica, reduce Klonopin and Percocet (2) Polypharmacy Is this a current diagnosis for this admission?: Yes Plan: Hold Lyrica, dose reduction in narcotics and benzodiazepine, education (3) CKD (chronic kidney disease) Qualifiers: Chronic kidney disease stage: stage 3 (moderate) Qualified Code(s): N18.3 - Chronic kidney disease, stage 3 (moderate) Is this a current diagnosis for this admission?: Yes Plan: At baseline avoid nephrotoxic meds and doses (4) Opioid dependence with current use Is this a current diagnosis for this admission?: Yes Plan: Education. (5) Falls Is this a current diagnosis for this admission?: Yes Plan: Secondary to polypharmacy, physical therapy evaluation. - Time Time Spent with patient: 25-34 minutes
[2019-03-26] MEDS ORDERED: (PENDING PHARMACY ID) (Cyanocobalamin (Vitamin B-12) [B-12] 500 MCG) PO SCH (10:00)
[2019-03-26] MEDS: FERROUS SULFATE 325 MG TABLET PO SCH (10:06)
[2019-03-26] MEDS: CYANOCOBALAMIN (VITAMIN B-12) 1,000 MCG TABLET PO SCH (10:06)
[2019-03-26] MEDS: DOCUSATE SODIUM 100 MG CAPSULE PO SCH ×2 (10:07→17:00)
[2019-03-26] MEDS ORDERED: INFLUENZA QUAD (6MOS+) 2019-20 VAC 0.5 ML SYR IM ONE (10:55)
[2019-03-26] MEDS: ACETAMINOPHEN 325 MG TABLET PO PRN (11:50)
--- NOTE | 2019-03-26 14:43 | EKG REPORT ---
SEVERITY:- NORMAL ECG - SINUS RHYTHM : Confirmed by: Kimberly Owens MD 26-Mar-2019 14:42:42
[2019-03-26] MEDS ORDERED: NORMAL SALINE 1000 ML 1,000 ML IV PRN (17:11)
[2019-03-26] MEDS ORDERED: CLONAZEPAM 1 MG TABLET PO PRN (17:11)
--- NOTE | 2019-03-26 17:21 | Progress Note ---
Provider Note Provider Note: SANTIAGO LAFLEUR is a 68 year old male with a past medical history of hypertension, CKD, chronic pain, neuropathy, polypharmacy who was admitted early this morning by the internet network specialist for acute encephalopathy and generalized weakness secondary to polypharmacy resulting in falls. Overnight events, vital signs, laboratory/imaging results, and orders reviewed. Agree with plan of care as established by the previous provider. The patient's medications have been reconciled; will resume Lyrica 50 mg every 8 hours (as opposed to his 150 mg every 8 hour home dose) and clonazepam 0.5 mg every 8 hours as needed (takes 1 mg every 8 at home). Continue holding Zanaflex, Seroquel, and oxycodone. Physical therapy has met with the patient; he was able to ambulate 30 feet with front wheel walker and contact-guard. Despite this, recommendations are for discharge to "SNF upon D/C D/C due to confusion and inability to consistently follow 1 step directions." At this time, patient does not meet for inpatient status. Will ask d/c menu planner to contact family; likely will need to d/c to home with home health services instead. Follow up a.m. BMP and CBC. Anticipate d/c home with home health services tomorrow (after 1 midnight stay).
[2019-03-26] MEDS: PREGABALIN 50 MG CAPSULE PO SCH (21:21)
[2019-03-26] MEDS ORDERED: (PENDING PHARMACY ID) (Rosuvastatin Calcium [Crestor 20 Mg Tablet] 20 MG) PO SCH (22:00)
[2019-03-26] MEDS ORDERED: DULOXETINE HCL 30 MG CAPSULE.DR PO SCH (22:00)
[2019-03-26] MEDS ORDERED: ATORVASTATIN CALCIUM 40 MG TABLET PO SCH (22:00)
[2019-03-27 05:17] LABS: ABSOLUTE LYMPHOCYTES (AUTO) 1.2 10^3/uL (0.5-4.7); ABSOLUTE MONOCYTES (AUTO) 0.5 10^3/uL (0.1-1.4); ABSOLUTE NEUT (AUTO) 4.6 10^3/uL (1.7-8.2); BASOPHILS % (AUTO) 0.6 % (0-2); EOSINOPHILS % (AUTO) 0.7 % (0-6); HEMATOCRIT 35.7 % (37.9-51.0); HEMOGLOBIN 12.2 g/dL (13.5-17.0); LYMPHOCYTES % (AUTO) 18.4 % (13-45); MEAN CORPUSCULAR HEMOGLOBIN 27.6 pg (27.0-33.4); MEAN CORPUSCULAR HGB CONC 34.1 g/dL (32.0-36.0); MEAN CORPUSCULAR VOLUME 81 fl (80-97); MONOCYTES % (AUTO) 8.2 % (3-13); PLATELET COUNT 144 10^3/uL (150-450); RED BLOOD COUNT 4.42 10^6/uL (4.35-5.55); RED CELL DISTRIBUTION WIDTH 14.9 % (11.5-14.0); SEGMENTED NEUTROPHILS % (AUTO) 72.1 % (42-78); TOTAL CELLS COUNTED % (AUTO) 100 %; WHITE BLOOD COUNT 6.4 10^3/uL (4.0-10.5)
[2019-03-27] MEDS ORDERED: PANTOPRAZOLE SODIUM 40 MG TABLET.DR PO SCH (06:00)
[2019-03-27] MEDS: HEPARIN SOD (PORCINE) 5,000 UNIT/ML 1 ML VIAL SUBCUT SCH ×2 (06:15→13:16)
[2019-03-27] MEDS: PREGABALIN 50 MG CAPSULE PO SCH ×2 (06:16→13:16)
[2019-03-27] MEDS: FERROUS SULFATE 325 MG TABLET PO SCH (09:17)
[2019-03-27] MEDS: CYANOCOBALAMIN (VITAMIN B-12) 1,000 MCG TABLET PO SCH (09:17)
[2019-03-27] MEDS: ACETAMINOPHEN 325 MG TABLET PO PRN (09:17)
[2019-03-27] MEDS: DOCUSATE SODIUM 100 MG CAPSULE PO SCH (09:17)
[2019-03-27] MEDS ORDERED: ASPIRIN 325 MG TABLET, ENT COATED PO SCH (10:00)
[2019-03-27] MEDS ORDERED: (PENDING PHARMACY ID) (Esomeprazole Mag Trihydrate [Nexium] 40 MG) PO SCH (10:00)
[2019-03-27 12:30] VITALS: BP 137/57
--- NOTE | 2019-03-28 12:43 | PDOC DISCHARGE SUMMARY ---
Impression - Admit/DC Date/PCP Admission Date/Primary Care Provider: 03/26/19 04:55 AMAN COUCH PA-C Discharge Date: 03/27/19 - Discharge Diagnosis (1) UTI (urinary tract infection) Is this a current diagnosis for this admission?: Yes (2) CKD (chronic kidney disease) Is this a current diagnosis for this admission?: Yes (3) Encephalopathy acute Is this a current diagnosis for this admission?: Yes (4) Falls Is this a current diagnosis for this admission?: Yes (5) Opioid dependence with current use Is this a current diagnosis for this admission?: Yes (6) Polypharmacy Is this a current diagnosis for this admission?: Yes - Additional Information Resuscitation Status: Full Code Discharge Diet: Regular Discharge Activity: Activity As Tolerated Referrals: AMAN COUCH PA-C [Primary Care Provider] - 04/04/19 11:15 am Prescriptions: Levofloxacin [Levaquin 750 mg Tablet] 750 mg PO DAILY #5 tablet Home Medications: Allopurinol [Zyloprim] 300 mg PO DAILY 09/30/18 Duloxetine HCl [Cymbalta] 60 mg PO QHS 02/20/19 Esomeprazole Mag Trihydrate [Nexium] 40 mg PO DAILY 02/20/19 Oxycodone HCl/Acetaminophen [Percocet 10-325 mg Tablet] 1 each PO Q8HP PRN 02/20/19 Quetiapine Fumarate [Seroquel] 25 mg PO QAM 30 Days #30 tablet 02/23/19 Quetiapine Fumarate [Seroquel] 50 mg PO QHS 30 Days #30 tablet 02/23/19 Rosuvastatin Calcium [Crestor 20 mg Tablet] 20 mg PO QHS 30 Days #30 tablet 02/23/19 Aspirin [Ecotrin 325 mg EC Tablet] 325 mg PO DAILY 03/26/19 Atenolol [Tenormin] 25 mg PO DAILY 03/26/19 Cyanocobalamin (Vitamin B-12) [Vitamin B-12 1000 mcg Tablet] 1,000 mcg PO DAILY 03/26/19 Ferrous Sulfate [Feosol 325 mg Tablet] 325 mg PO DAILY 03/26/19 Acetaminophen [Tylenol 325 mg Tablet] 650 mg PO Q4HP PRN tablet 03/27/19 Clonazepam [Klonopin 1 mg Tablet] 0.5 mg PO Q8HP PRN tablet 03/27/19 Cyanocobalamin (Vitamin B-12) [Vitamin B-12 1000 mcg Tablet] 500 mcg PO DAILY tablet 03/27/19 Ferrous Sulfate [Feosol 325 mg Tablet] 325 mg PO DAILY tablet 03/27/19 Pregabalin [Lyrica 50 mg Capsule] 50 mg PO Q8 capsule 03/27/19 Levofloxacin [Levaquin 750 mg Tablet] 750 mg PO DAILY #5 tablet 03/28/19 History of Present Illiness History of Present Illness: Per H&P by Dr. Arriaza: SANTIAGO LAFLEUR is a 68 year old male with a past medical history of hypertension, CKD, chronic pain, neuropathy, polypharmacy with Klonopin, Lyrica, Percocet and 6 recent presentations to the emergency room secondary to confusion and falls. Patient presents 48 hours of confusion, fatigue, falls resulting in bilateral brow lacerations. Is otherwise found to have an unremarkable work-up with exception to hypotension that greatly improved with Narcan. He remains unable to ambulate safely. His daughter and caregiver is unable to care for him in this condition. Hospital Course Hospital Course: The patient was admitted to the medical floor on continuous cardiac telemetry. Vital signs remained stable, initial laboratory evaluation was unremarkable other than his baseline CKD, and UDS that confirmed opiates and barbiturates. The patient was provided gentle IV fluids and supportive care. His sedating medications were were held and dose reduced. PT/OT consultations were obtained; patient is now ambulating independently. On morning of discharge, patient is found ambulating in his room. He reports that he is feeling well and requesting to go home. He is agreeable to home health nursing, physical therapy, aide and social work services. The patient is discharged home in stable condition. He is instructed to follow-up with his primary care provider within 1 week and is agreeable to discuss dose reduction of his medications to prevent further confusion and involved. He is advised to take his medications as instructed. If read by return to the emergency department as needed for concerning symptoms. Following discharge, the patient's urine culture did result showing >100,000 colonies of Enterococcus faecalis. A prescription for p.o. Levaquin has been electronically transmitted to his pharmacy. Physical Exam Vital Signs: Temp Pulse Resp BP Pulse Ox 97.5 F 77 16 137/57 H 95 03/27/19 12:18 03/27/19 12:18 03/27/19 12:18 03/27/19 12:18 03/27/19 12:18 Intake & Output 03/27/19 03/28/19 03/29/19 06:59 06:59 06:59 Intake Total 698 290 Output Total 150 Balance 698 140 Weight 79.1 kg General appearance: PRESENT: no acute distress, cooperative, disheveled, well- developed, well-nourished Head exam: PRESENT: atraumatic, normocephalic Eye exam: PRESENT: conjunctiva pink, EOMI, PERRLA. ABSENT: scleral icterus Ear exam: PRESENT: normal external ear exam Mouth exam: PRESENT: moist, tongue midline Neck exam: ABSENT: carotid bruit, JVD, lymphadenopathy, thyromegaly Respiratory exam: PRESENT: clear to auscultation darlene, symmetrical, unlabored. ABSENT: rales, rhonchi, wheezes Cardiovascular exam: PRESENT: RRR. ABSENT: diastolic murmur, rubs, systolic murmur Pulses: PRESENT: normal dorsalis pedis pul Vascular exam: PRESENT: normal capillary refill GI/Abdominal exam: PRESENT: normal bowel sounds, soft. ABSENT: distended, guarding, mass, organolmegaly, rebound, tenderness Rectal exam: PRESENT: deferred Extremities exam: PRESENT: full ROM. ABSENT: calf tenderness, clubbing, pedal edema Musculoskeletal exam: PRESENT: ambulatory Neurological exam: PRESENT: alert, awake, oriented to person, oriented to place, oriented to time, oriented to situation, CN II-XII grossly intact. ABSENT: motor sensory deficit Psychiatric exam: PRESENT: appropriate affect, normal mood. ABSENT: homicidal ideation, suicidal ideation Skin exam: PRESENT: dry, intact, warm. ABSENT: cyanosis, rash Results Laboratory Results: WBC 6.4 10^3/uL (4.0-10.5) 03/27/19 04:09 RBC 4.42 10^6/uL (4.35-5.55) 03/27/19 04:09 Hgb 12.2 g/dL (13.5-17.0) L 03/27/19 04:09 Hct 35.7 % (37.9-51.0) L 03/27/19 04:09 MCV 81 fl (80-97) 03/27/19 04:09 MCH 27.6 pg (27.0-33.4) 03/27/19 04:09 MCHC 34.1 g/dL (32.0-36.0) 03/27/19 04:09 RDW 14.9 % (11.5-14.0) H 03/27/19 04:09 Plt Count 144 10^3/uL (150-450) L 03/27/19 04:09 Lymph % (Auto) 18.4 % (13-45) 03/27/19 04:09 [place] % (Auto) 8.2 % (3-13) 03/27/19 04:09 Eos % (Auto) 0.7 % (0-6) 03/27/19 04:09 Baso % (Auto) 0.6 % (0-2) 03/27/19 04:09 Absolute Neuts (auto) 4.6 10^3/uL (1.7-8.2) 03/27/19 04:09 Absolute Lymphs (auto) 1.2 10^3/uL (0.5-4.7) 03/27/19 04:09 Absolute Monos (auto) 0.5 10^3/uL (0.1-1.4) 03/27/19 04:09 Absolute Eos (auto) 0.0 10^3/uL (0.0-0.6) 03/27/19 04:09 Absolute Basos (auto) 0.0 10^3/uL (0.0-0.2) 03/27/19 04:09 Seg Neutrophils % 72.1 % (42-78) 03/27/19 04:09 PT 13.8 SEC (11.4-15.4) 03/26/19 01:56 INR 1.06 03/26/19 01:56 VBG pH 7.44 (7.30-7.42) H 03/26/19 02:37 VBG pCO2 37.1 mmHg (35-63) 03/26/19 02:37 VBG HCO3 24.6 mmol/L (20-32) 03/26/19 02:37 VBG Base Excess 0.7 mmol/L 03/26/19 02:37 Sodium 139.5 mmol/L (137-145) 03/26/19 01:56 Potassium 4.1 mmol/L (3.6-5.0) 03/26/19 01:56 Chloride 105 mmol/L (98-107) 03/26/19 01:56 Carbon Dioxide 28 mmol/L (22-30) 03/26/19 01:56 Anion Gap 7 (5-19) 03/26/19 01:56 BUN 22 mg/dL (7-20) H 03/26/19 01:56 Creatinine 1.40 mg/dL (0.52-1.25) H 03/26/19 01:56 Est GFR ( Amer) > 60 (>60) 03/26/19 01:56 Est GFR (MDRD) Non-Af 50 (>60) L 03/26/19 01:56 Glucose 112 mg/dL (75-110) H 03/26/19 01:56 Lactic Acid 1.1 mmol/L (0.7-2.1) 03/26/19 01:56 Calcium 8.6 mg/dL (8.4-10.2) 03/26/19 01:56 Total Bilirubin 0.7 mg/dL (0.2-1.3) 03/26/19 01:56 Direct Bilirubin 0.1 mg/dL (0.0-0.4) 03/26/19 01:56 Neonat Total Bilirubin Not Reportable 03/26/19 01:56 Neonat Direct Bilirubin Not Reportable 03/26/19 01:56 Neonat Indirect Bili Not Reportable 03/26/19 01:56 AST 36 U/L (17-59) 03/26/19 01:56 ALT 33 U/L (<50) 03/26/19 01:56 Alkaline Phosphatase 97 U/L (38-126) 03/26/19 01:56 Total Protein 6.2 g/dL (6.3-8.2) L 03/26/19 01:56 Albumin 3.5 g/dL (3.5-5.0) 03/26/19 01:56 Urine Color DARK YELLOW 03/26/19 01:56 Urine Appearance SLIGHTLY-CLOUDY 03/26/19 01:56 Urine pH 7.0 (5.0-9.0) 03/26/19 01:56 Ur Specific [place] 1.021 03/26/19 01:56 Urine Protein 100 mg/dL (NEGATIVE) H 03/26/19 01:56 Urine Glucose (UA) NEGATIVE mg/dL (NEGATIVE) 03/26/19 01:56 Urine Ketones NEGATIVE mg/dL (NEGATIVE) 03/26/19 01:56 Urine Blood NEGATIVE (NEGATIVE) 03/26/19 01:56 Urine Nitrite (Reflex) NEGATIVE (NEGATIVE) 03/26/19 01:56 Urine Bilirubin NEGATIVE (NEGATIVE) 03/26/19 01:56 Urine Urobilinogen NEGATIVE mg/dL (<2.0) 03/26/19 01:56 Leukocyte Esterase Rfl MODERATE (NEGATIVE) H 03/26/19 01:56 Urine RBC (Auto) 8 /HPF 03/26/19 01:56 U Hyaline Cast (Auto) 3 /LPF 03/26/19 01:56 Urine Bacteria (Auto) TRACE /HPF 03/26/19 01:56 Urine WBC (Reflex) 153 /HPF 03/26/19 01:56 Squamous Epi Cells Auto <1 /HPF 03/26/19 01:56 Urine Mucus (Auto) OCC /LPF 03/26/19 01:56 Urine Ascorbic Acid NEGATIVE (NEGATIVE) 03/26/19 01:56 Urine Opiates Screen UNCONFIRMED POSITIVE 03/26/19 01:56 Urine Methadone Screen NEGATIVE 03/26/19 01:56 Ur Barbiturates Screen UNCONFIRMED POSITIVE 03/26/19 01:56 Ur Phencyclidine Scrn NEGATIVE 03/26/19 01:56 Ur Amphetamines Screen NEGATIVE 03/26/19 01:56 U Benzodiazepines Scrn NEGATIVE 03/26/19 01:56 Urine Cocaine Screen NEGATIVE 03/26/19 01:56 U Marijuana (THC) Screen NEGATIVE 03/26/19 01:56 Serum Alcohol < 10 mg/dL (NONE DETECTED) 03/26/19 01:56 Impressions: Chest X-Ray 03/26/19 02:09 IMPRESSION: No acute cardiopulmonary abnormality copyright 2010 [employer]- All Rights Reserved Head CT 03/26/19 02:16 IMPRESSION: Normal CT of the head. Plan Plan of Treatment: Patient is discharged home in stable condition with home health nursing services. Follow-up with primary care provider within 1 week. Strongly recommend review of sedating medication with dose reductions. Patient is provided with Levaquin for treatment of UTI. Drink plenty of water. Return to emergency department as needed for concerning symptoms. Stroke Is this a Stroke Patient?: No Acute Heart Failure - Is this a Heart Failure Patient?: No
== END 2019-03-27 13:39 | disposition home health service (06) ==
LOC: ER 01:48 → EH 04:55 → 5 07:47
PROVIDERS: ADMIT Internal Medicine; ATTEND Internal Medicine
DX: G92 Toxic encephalopathy (principal); T42.6X5A Adverse effect of other antiepileptic and sedative-hypnotic drugs, initial encounter; T42.4X5A Adverse effect of benzodiazepines, initial encounter; T40.2X5A Adverse effect of other opioids, initial encounter; N39.0 Urinary tract infection, site not specified; B95.2 Enterococcus as the cause of diseases classified elsewhere; I12.9 Hypertensive chronic kidney disease with stage 1 through stage 4 chronic kidney disease, or unspecified chronic kidney disease; N18.3 Chronic kidney disease, stage 3 (moderate); F11.20 Opioid dependence, uncomplicated; G89.29 Other chronic pain; R29.6 Repeated falls; I95.9 Hypotension, unspecified; S01.81XA Laceration without foreign body of other part of head, initial encounter; W19.XXXA Unspecified fall, initial encounter; E78.5 Hyperlipidemia, unspecified; G62.9 Polyneuropathy, unspecified; K21.9 Gastro-esophageal reflux disease without esophagitis; K59.00 Constipation, unspecified; M54.9 Dorsalgia, unspecified; G25.81 Restless legs syndrome; R53.1 Weakness; Z79.899 Other long term (current) drug therapy; Z87.440 Personal history of urinary (tract) infections
CPT/HCPCS: 93005; 99285; 96361; 96375; 96365; 36415 ×2; 87040; 87086; 80307 ×2; 85025 ×2; 85610; 87088; 80053; 81001; 87186; 82803; 83605; 71045; 70450; 93010; 97163; G0378 ×3; A9270 ×12; J1644 ×2; J2310; J7120; J0696; J3490

== ENCOUNTER 2019-10-29 13:47 | Emergency (ER) | payer MEDICARE, MEDICAID ==
--- NOTE | 2019-10-29 14:01 | ER Document Report ---
ED Medical Screen (RME) - General Stated Complaint: CONFUSION/MUSCLE PAIN Time Seen by Provider: 10/29/19 13:53 Primary Care Provider: AMAN COUCH PA-C [Primary Care Provider] - Follow up as needed Mode of Arrival: Wheelchair Information source: Patient Notes: 68-year-old male patient presents to the emergency department chief complaint of allover muscle aches and confusion. Patient reports he started feeling confused last night. He also reports a mild headache with "swelling" to the back of his head. Patient denies having any other symptoms. He denies fever. No focal neurological deficits noted, patient denies any unilateral weakness. I have greeted and performed a rapid initial assessment of this patient. A comprehensive ED assessment and evaluation of the patient, analysis of test results and completion of the medical decision making process will be conducted by additional ED providers. I have specifically instructed the patient or family members with the patient to immediately return to any nursing staff should anything change in the patient's condition or with their chief complaint. TRAVEL OUTSIDE OF THE [place] IN LAST 30 DAYS: No - Related Data Allergies/Adverse Reactions: gabapentin [From Neurontin] Allergy (Verified 09/30/18 21:02) Past Medical History - Social History Family history: None - Past Medical History Cardiac Medical History: Reports: Hx Hypercholesterolemia, Hx Hypertension Renal/ Medical History: Denies: Hx Peritoneal Dialysis GI Medical History: Reports: Hx Gastroesophageal Reflux Disease Psychiatric Medical History: Reports: Hx Depression Past Surgical History: Reports: Hx Urinary Tract Surgery, Hx Vascular Surgery Doctor's Discharge - Discharge Referrals: AMAN COUCH PA-C [Primary Care Provider] - Follow up as needed
[2019-10-29 14:28] LABS: ABSOLUTE EOSINOPHILS # (AUTO) 0.1 10^3/uL (0.0-0.6); ABSOLUTE LYMPHOCYTES (AUTO) 1.3 10^3/uL (0.5-4.7); ABSOLUTE MONOCYTES (AUTO) 0.3 10^3/uL (0.1-1.4); ABSOLUTE NEUT (AUTO) 3.5 10^3/uL (1.7-8.2); BASOPHILS % (AUTO) 0.9 % (0-2); EOSINOPHILS % (AUTO) 1.2 % (0-6); HEMATOCRIT 38.6 % (37.9-51.0); HEMOGLOBIN 13.2 g/dL (13.5-17.0); LYMPHOCYTES % (AUTO) 24.9 % (13-45); MEAN CORPUSCULAR HEMOGLOBIN 28.7 pg (27.0-33.4); MEAN CORPUSCULAR HGB CONC 34.3 g/dL (32.0-36.0); MEAN CORPUSCULAR VOLUME 84 fl (80-97); MONOCYTES % (AUTO) 6.5 % (3-13); PLATELET COUNT 213 10^3/uL (150-450); RED BLOOD COUNT 4.62 10^6/uL (4.35-5.55); RED CELL DISTRIBUTION WIDTH 14.3 % (11.5-14.0); SEGMENTED NEUTROPHILS % (AUTO) 66.5 % (42-78); TOTAL CELLS COUNTED % (AUTO) 100 %; WHITE BLOOD COUNT 5.3 10^3/uL (4.0-10.5)
[2019-10-29 15:15] LABS: APPEARANCE,URINE CLOUDY; BILIRUBIN,URINE NEGATIVE (NEGATIVE); COLOR,URINE YELLOW; GLUCOSE, URINE NEGATIVE (NEGATIVE); KETONES,URINE NEGATIVE (NEGATIVE); LEUKOCYTE ESTERASE,URINE MODERATE (NEGATIVE); NITRITE,URINE NEGATIVE (NEGATIVE); PROTEIN,URINE 30 mg/dL (NEGATIVE); URINE SPECIFIC GRAVITY 1.023; UROBILINOGEN,URINE NEGATIVE mg/dL (<2.0)
--- NOTE | 2019-10-29 15:17 | ER Document Report ---
ED General - General Chief Complaint: Altered Mental Status Stated Complaint: CONFUSION/MUSCLE PAIN Time Seen by Provider: 10/29/19 13:53 Primary Care Provider: AMAN COUCH PA-C [Primary Care Provider] - Follow up as needed Mode of Arrival: Wheelchair Notes: 68-year-old male presents the emergency department for confusion and a "bad spell" that he reports started this morning. Patient cannot give me much other history aside from complaining of a "bad bump on the back of my head" that he is not sure what caused it. He requests I call his daughter. When speaking with his daughter Annie couch she states that he actually has episodes like this once to twice a month since he had his first stroke in January 2019. She states that this last episode actually started yesterday evening. States that during these episodes he will get confused, pee everywhere and wear mismatch shoes. She also states he mixes up his medications and puts them in different bottles during these episodes. She denies any known head injury although the patient does complain of that bump on his head and a little bit of a headache. Patient does take aspirin. Of note daughter states that he has been seeing a neurologist since the stroke and they have told the neurologist about these episodes, neurologist does not have a cause for these episodes. Patient does take multiple medications including baclofen, Seroquel, amlodipine, clonazepam chondroitin hydrocodone, Cymbalta and full strength aspirin. TRAVEL OUTSIDE OF THE [place] IN LAST 30 DAYS: No - Related Data Allergies/Adverse Reactions: gabapentin [From Neurontin] Allergy (Verified 09/30/18 21:02) Past Medical History - General Information source: Patient - Social History Smoking Status: Never Smoker Chew tobacco use (# tins/day): No Frequency of alcohol use: None Drug Abuse: None Family History: COPD Patient has homicidal ideation: No - Past Medical History Cardiac Medical History: Reports: Hx Hypercholesterolemia, Hx Hypertension Renal/ Medical History: Denies: Hx Peritoneal Dialysis GI Medical History: Reports: Hx Gastroesophageal Reflux Disease Psychiatric Medical History: Reports: Hx Depression Past Surgical History: Reports: Hx Urinary Tract Surgery, Hx Vascular Surgery Review of Systems - Review of Systems Constitutional: No symptoms reported EENT: No symptoms reported Cardiovascular: No symptoms reported Respiratory: No symptoms reported Gastrointestinal: No symptoms reported Musculoskeletal: Other - Bump on head Neurological/Psychological: See HPI, Confusion -: Yes All other systems reviewed and negative Physical Exam - Vital signs Vitals: Temp 97.9 F 10/29/19 13:53 Interpretation: Normal - Notes Notes: GENERAL: Alert, interacts well. No acute distress. HEAD: 1.5 cm raised firm mobile to the posterior aspect of the head, mildly tender to palpation, no ecchymoses, no depressions, no fluctuance. EYES: Pupils equal, round and reactive to light, extraocular movements intact. ENT: Oral mucosa moist, tongue midline. NECK: Full range of motion, supple, trachea midline. LUNGS: Clear to auscultation bilaterally, no wheezes, rales or rhonchi, no respiratory distress. HEART: Regular rate and rhythm, no murmurs, gallops, rubs. ABDOMEN: Soft, nontender, nondistended, bowel sounds present in all 4 quadrants. EXTREMITIES: Moves all 4 extremities spontaneously, no edema, radial and dorsalis pedis pulses 2/4 bilaterally. No cyanosis. NEUROLOGICAL: Alert and oriented to person and place, knows it is 2020 but does not know who the president is, normal speech, cranial nerves II through XII grossly intact, biceps and patellar DTRs 2+ bilaterally. Ivukzy-es-gihm and vcna-pp-xrba testing intact. 5 out of 5 muscle strength in all 4 extremities. Cannot recall most of the events of the prior 24 hours that led him to be concerned enough to come to the emergency department. PSYCH: Normal mood, normal affect. SKIN: Warm, Dry, normal turgor. Course - Re-evaluation Re-evalutation: 10/29/19 15:47 CBC shows slight anemia with hemoglobin 13.2, CMP shows chronic renal failure with BUN of 25 and a creatinine of 1.32, urinalysis shows small blood, moderate leukocyte esterase, greater than 182 WBCs and 2+ bacteria. This is been sent for culture. Patient will be started on antibiotics, this quite possibly explains the patient's intermittent confusion. Salicylates and acetaminophen are negative. Head CT is negative for any acute process. I did discuss with patient and daughter that his medications can also cause quite a bit of confusion when combined together particularly when he is using the PRN medications more often than usual. I suggested that for the next month the daughter to control with medications and track whether or not his symptoms correlate with his dosing of his PRN medications. Patient should continue to follow-up with primary care physician and neurology and return to emergency department for any new or concerning symptoms. - Vital Signs Vital signs: Temp Pulse Resp BP Pulse Ox 97.9 F 95 11 L 142/87 H 97 10/29/19 13:53 10/29/19 14:12 10/29/19 14:14 10/29/19 14:14 10/29/19 14:16 - Laboratory Result Diagrams: 10/29/19 14:12 10/29/19 14:51 Laboratory results interpreted by me: 10/29/19 10/29/19 10/29/19 14:05 14:12 14:51 Hgb 13.2 L RDW 14.3 H BUN 25 H Creatinine 1.32 H Est GFR (MDRD) Non-Af 54 L Glucose 127 H Urine Protein 30 H Urine Blood SMALL H Ur Leukocyte Esterase MODERATE H Salicylates Acetaminophen 10/29/19 14:51 Hgb RDW BUN Creatinine Est GFR (MDRD) Non-Af Glucose Urine Protein Urine Blood Ur Leukocyte Esterase Salicylates < 1.0 L Acetaminophen < 10 L - EKG Interpretation by Me Additional EKG results interpreted by me: 10/29/19 15:24 EKG shows sinus rhythm with a rate of 89, 2 PVCs, no ST segment elevations or depressions, no T wave inversions, normal axis, normal intervals per my interpretation. Discharge - Discharge Clinical Impression: Polypharmacy, Confusion UTI (urinary tract infection) Qualifiers: Urinary tract infection type: acute cystitis Hematuria presence: with hematuria Qualified Code(s): N30.01 - Acute cystitis with hematuria Condition: Stable Disposition: HOME, SELF-CARE Additional Instructions: Today you have a urinary tract infection. There were no signs of bleeding in the brain on your CAT scan. Your blood work is unchanged from usual. You do have a small amount of kidney disease, you have had this for several years. Please continue to follow-up with your primary care physician regarding this. The urinary tract infection can cause some confusion. Reviewing your records you have had these in the past. I would suggest that the next time you have an episode of confusion like this that you get checked for urinary tract infection. I also want your daughter to take control of your medications for the next month. I would like her to make sure she is documenting any time that you have the symptoms along with what medications you have been taking. Many of your medications can make you sleepy and confused including the baclofen and the hydrocodone as well as the clonazepam all of which are as needed medications. You may find that you are getting more confused when you are taking more of these medications. If you find this a true please discuss your medications with your primary care physician. Prescriptions: Cephalexin Monohydrate [Keflex 500 mg Capsule] 500 mg PO BID #14 capsule Referrals: AMAN COUCH PA-C [Primary Care Provider] - Follow up as needed
--- NOTE | 2019-10-29 15:27 | RADIOLOGY REPORT (SQ) ---
EXAM DESCRIPTION: CT HEAD WITHOUT IMAGES COMPLETED DATE/TIME: 10/29/2019 2:09 pm REASON FOR STUDY: confusion. COMPARISON: 03/26/2019 TECHNIQUE: Axial images acquired through the brain without intravenous contrast. Images reviewed wi th bone, brain and subdural windows. Additional sagittal and coronal reconstructions were generated. Images stored on PACS. All CT scanners at this facility use dose modulation, iterative reconstruction, and/or weight based d osing when appropriate to reduce radiation dose to as low as reasonably achievable (ALARA). [facility]: Dose Right [facility]: CareDose [facility]: Dose Right [facility]: Teradose 4D [facility]: [employer] RADIATION DOSE: CT Rad equipment meets quality standard of care and radiation dose reduction techniq ues were employed. CTDIvol: 53.2 mGy. DLP: 964 mGy-cm. mGy. LIMITATIONS: None. FINDINGS: VENTRICLES: Normal size and contour. CEREBRUM: No masses. No hemorrhage. No midline shift. No evidence for acute infarction. Normal gra y/white matter differentiation. No areas of low density in the white matter. CEREBELLUM: No masses. No hemorrhage. No alteration of density. No evidence for acute infarction. EXTRAAXIAL SPACES: No fluid collections. No masses. ORBITS AND GLOBE: No intra- or extraconal masses. Normal contour of globe without masses. CALVARIUM: No fracture. PARANASAL SINUSES: No fluid or mucosal thickening. SOFT TISSUES: No mass or hematoma. OTHER: No other significant finding. IMPRESSION: NO ACUTE INTRACRANIAL IMAGING FINDINGS. EVIDENCE OF ACUTE STROKE: NO. COMMENT: Quality ID # 436: Final reports with documentation of one or more dose reduction techniques (e.g., Automated exposure control, adjustment of the mA and/or kV according to patient size, use of iterative reconstruction technique) TECHNICAL DOCUMENTATION: JOB ID: [id number] 2010 [employer]- All Rights Reserved Reading location - IP/workstation name: [email or web address]
[2019-10-29 15:30] LABS: ALBUMIN 4.5 g/dL (3.5-5.0); ALKALINE PHOSPHATASE 97 U/L (38-126); ANION GAP 7 (5-19); ASPARTATE AMINO TRANSFERASE 35 U/L (17-59); BILIRUBIN,TOTAL 0.5 mg/dL (0.2-1.3); BLOOD UREA NITROGEN 25 mg/dL (7-20); CALCIUM 9.3 mg/dL (8.4-10.2); CARBON DIOXIDE 28 mmol/L (22-30); CHLORIDE 104 mmol/L (98-107); GLUCOSE 127 mg/dL (75-110); POTASSIUM 4.5 mmol/L (3.6-5.0); TOTAL PROTEIN 7.2 g/dL (6.3-8.2)
[2019-10-29 15:41] LABS: ACETAMINOPHEN < 10 ug/mL (10-30); SALICYLATE < 1.0 mg/dL (2.0-20.0)
[2019-10-29] MEDS ORDERED: CEPHALEXIN 500 MG CAPSULE PO ONE (15:53)
[2019-10-29 16:14] VITALS: BP 156/93
--- NOTE | 2019-10-29 21:17 | EKG REPORT ---
SEVERITY:- ABNORMAL ECG - SINUS RHYTHM VENTRICULAR TRIGEMINY : Confirmed by: Bunny Aldana MD 29-Oct-2019 21:17:21
== END 2019-10-29 16:16 | disposition home or self-care (01) ==
LOC: ER 13:47
DX: N30.01 Acute cystitis with hematuria (principal); R41.0 Disorientation, unspecified; R22.0 Localized swelling, mass and lump, head; R51 Headache; I49.3 Ventricular premature depolarization; I12.9 Hypertensive chronic kidney disease with stage 1 through stage 4 chronic kidney disease, or unspecified chronic kidney disease; N18.9 Chronic kidney disease, unspecified; D63.1 Anemia in chronic kidney disease; F32.9 Major depressive disorder, single episode, unspecified; Z79.82 Long term (current) use of aspirin; Z79.899 Other long term (current) drug therapy; Z79.891 Long term (current) use of opiate analgesic; Z86.73 Personal history of transient ischemic attack (TIA), and cerebral infarction without residual deficits; Z88.6 Allergy status to analgesic agent
CPT/HCPCS: 93005; 99285; 36415; 87086; 80307 ×2; 85025; 87088; 80053; 81001; 87186; 70450; 93010; A9270

== ENCOUNTER 2019-11-22 12:40 | Emergency (ER) | payer MEDICARE, MEDICAID ==
--- NOTE | 2019-11-22 13:21 | ER Document Report ---
ED Medical Screen (RME) - General Chief Complaint: Altered Mental Status Stated Complaint: AMS Time Seen by Provider: 11/22/19 13:18 Primary Care Provider: AMAN COUCH PA-C [Primary Care Provider] - Follow up as needed Notes: This 69-year-old male presented to the emergency room today stating that he had had confusion increasing over the last 24 hours however it is been ongoing intermittently for 2 weeks he was at [place] several days ago and evaluated for the same. TRAVEL OUTSIDE OF THE [place] IN LAST 30 DAYS: No - Related Data Allergies/Adverse Reactions: gabapentin [From Neurontin] Allergy (Verified 09/30/18 21:02) Past Medical History - Social History Family history: None - Past Medical History Cardiac Medical History: Reports: Hx Hypercholesterolemia, Hx Hypertension Renal/ Medical History: Denies: Hx Peritoneal Dialysis GI Medical History: Reports: Hx Gastroesophageal Reflux Disease Psychiatric Medical History: Reports: Hx Depression Past Surgical History: Reports: Hx Urinary Tract Surgery, Hx Vascular Surgery Physical Exam - Vital signs Vitals: Temp Pulse Resp BP Pulse Ox 97.7 F 93 14 142/72 H 94 11/22/19 12:44 11/22/19 12:44 11/22/19 12:44 11/22/19 12:44 11/22/19 12:44 Course - Vital Signs Vital signs: Temp Pulse Resp BP Pulse Ox 97.7 F 93 14 142/72 H 94 11/22/19 12:44 11/22/19 12:44 11/22/19 12:44 11/22/19 12:44 11/22/19 12:44 Doctor's Discharge - Discharge Referrals: AMAN COUCH PA-C [Primary Care Provider] - Follow up as needed
[2019-11-22 13:56] LABS: ABSOLUTE BASOPHILS # (AUTO) 0.1 10^3/uL (0.0-0.2); ABSOLUTE EOSINOPHILS # (AUTO) 0.2 10^3/uL (0.0-0.6); ABSOLUTE LYMPHOCYTES (AUTO) 1.2 10^3/uL (0.5-4.7); ABSOLUTE MONOCYTES (AUTO) 0.4 10^3/uL (0.1-1.4); ABSOLUTE NEUT (AUTO) 2.1 10^3/uL (1.7-8.2); BASOPHILS % (AUTO) 1.4 % (0-2); EOSINOPHILS % (AUTO) 4.4 % (0-6); HEMATOCRIT 35.9 % (37.9-51.0); LYMPHOCYTES % (AUTO) 31.4 % (13-45); MEAN CORPUSCULAR HEMOGLOBIN 28.2 pg (27.0-33.4); MEAN CORPUSCULAR HGB CONC 33.5 g/dL (32.0-36.0); MEAN CORPUSCULAR VOLUME 84 fl (80-97); MONOCYTES % (AUTO) 9.9 % (3-13); PLATELET COUNT 238 10^3/uL (150-450); RED BLOOD COUNT 4.26 10^6/uL (4.35-5.55); RED CELL DISTRIBUTION WIDTH 14.6 % (11.5-14.0); SEGMENTED NEUTROPHILS % (AUTO) 52.9 % (42-78); TOTAL CELLS COUNTED % (AUTO) 100 %
--- NOTE | 2019-11-22 14:04 | RADIOLOGY REPORT (SQ) ---
EXAM DESCRIPTION: CT HEAD WITHOUT IMAGES COMPLETED DATE/TIME: 11/22/2019 12:37 pm REASON FOR STUDY: confusion COMPARISON: None. TECHNIQUE: Axial images acquired through the brain without intravenous contrast. Images reviewed wi th bone, brain and subdural windows. Images stored on PACS. All CT scanners at this facility use dose modulation, iterative reconstruction, and/or weight based d osing when appropriate to reduce radiation dose to as low as reasonably achievable (ALARA). [facility]: Dose Right [facility]: CareDose [facility]: Dose Right [facility]: Teradose 4D [facility]: [employer] RADIATION DOSE: CT Rad equipment meets quality standard of care and radiation dose reduction techniq ues were employed. CTDIvol: 53.2 mGy. DLP: 1097 mGy-cm. mGy. LIMITATIONS: None. FINDINGS: VENTRICLES: Normal size and contour. CEREBRUM: No masses. No hemorrhage. No midline shift. No evidence for acute infarction. Normal gra y/white matter differentiation. No areas of low density in the white matter. CEREBELLUM: No masses. No hemorrhage. No alteration of density. No evidence for acute infarction. EXTRAAXIAL SPACES: No fluid collections. No masses. ORBITS AND GLOBE: No intra- or extraconal masses. Normal contour of globe without masses. CALVARIUM: No fracture. PARANASAL SINUSES: No fluid or mucosal thickening. SOFT TISSUES: No mass or hematoma. OTHER: No other significant finding. IMPRESSION: NO ACUTE INTRACRANIAL IMAGING FINDINGS. EVIDENCE OF ACUTE STROKE: NO. COMMENT: Quality ID # [id number]: Final reports with documentation of one or more dose reduction techniques (e.g., Automated exposure control, adjustment of the mA and/or kV according to patient size, use of iterative reconstruction technique) TECHNICAL DOCUMENTATION: JOB ID: [id number] [employer]- All Rights Reserved Reading location - IP/workstation name: [email or web address]
[2019-11-22 14:15] LABS: ALBUMIN 4.3 g/dL (3.5-5.0); ALKALINE PHOSPHATASE 97 U/L (38-126); ANION GAP 7 (5-19); ASPARTATE AMINO TRANSFERASE 69 U/L (17-59); BILIRUBIN,TOTAL 0.5 mg/dL (0.2-1.3); BLOOD UREA NITROGEN 21 mg/dL (7-20); CALCIUM 9.5 mg/dL (8.4-10.2); CARBON DIOXIDE 28 mmol/L (22-30); CHLORIDE 106 mmol/L (98-107); GLUCOSE 109 mg/dL (75-110); POTASSIUM 3.7 mmol/L (3.6-5.0); TOTAL PROTEIN 7.1 g/dL (6.3-8.2)
--- NOTE | 2019-11-22 14:44 | ER Document Report ---
ED General - General Chief Complaint: confusion Stated Complaint: AMS Time Seen by Provider: 11/22/19 13:18 Primary Care Provider: AMAN COUCH PA-C [Primary Care Provider] - Follow up as needed Information source: Patient, Relative - daughter TRAVEL OUTSIDE OF THE [place] IN LAST 30 DAYS: No - HPI Onset: Other - over the last several days Onset/Duration: Gradual Quality of pain: No pain Severity: Moderate Pain Level: Denies Associated symptoms: Other - confusion Exacerbated by: Denies Relieved by: Denies Similar symptoms previously: Yes - several times Recently seen / treated by doctor: Yes - patient seen in this ER in September and had a UTI then Notes: 69 year old male with a history of HTN, HLD, Depression, prior CVA and what sounds like likely Dementia here in the ER for confusion. The patient was seen in September in this ER for confusion and he had a UTI then. Apparently the patient has been having spells of confusion more and more frequently. The patient's daughter is concerned it could be Dementia. The patient has been seen by his PCP and Neurology lately. - Related Data Allergies/Adverse Reactions: gabapentin [From Neurontin] Allergy (Verified 11/22/19 13:24) Past Medical History - General Information source: Patient, Relative - daughter Cannot obtain history due to: Altered mental status - Social History Smoking Status: Never Smoker Frequency of alcohol use: None Drug Abuse: None Lives with: Family Family History: COPD Patient has suicidal ideation: No Patient has homicidal ideation: No - Past Medical History Cardiac Medical History: Reports: Hx Hypercholesterolemia, Hx Hypertension Renal/ Medical History: Denies: Hx Peritoneal Dialysis GI Medical History: Reports: Hx Gastroesophageal Reflux Disease Psychiatric Medical History: Reports: Hx Depression Past Surgical History: Reports: Hx Urinary Tract Surgery, Hx Vascular Surgery Review of Systems - Review of Systems Constitutional: No symptoms reported EENT: No symptoms reported Cardiovascular: No symptoms reported Respiratory: No symptoms reported Gastrointestinal: No symptoms reported Genitourinary: No symptoms reported Male Genitourinary: No symptoms reported Musculoskeletal: No symptoms reported Skin: No symptoms reported Hematologic/Lymphatic: No symptoms reported Neurological/Psychological: Confusion -: Yes All other systems reviewed and negative Physical Exam - Vital signs Vitals: Temp 97.7 F 11/22/19 12:41 - Notes Notes: GENERAL: Somewhat poorly groomed but well-nourished and in no acute distress. Pleasantly confused. HEAD: Atraumatic, normocephalic. EYES: Pupils equal round and reactive to light, extraocular movements intact, sclera anicteric, conjunctiva are normal. ENT: External ears normal, nares patent, oropharynx clear without exudates. Moist mucous membranes. NECK: Normal range of motion, supple without lymphadenopathy or JVD. LUNGS: Breath sounds clear to auscultation bilaterally and equal. No wheezes rales or rhonchi. HEART: Regular rate and rhythm without murmurs, rubs or gallops. ABDOMEN: Soft, nontender, normoactive bowel sounds. No guarding, no rebound. No masses appreciated. EXTREMITIES: Normal range of motion, no pitting or edema. No clubbing or cyanosis. NEUROLOGICAL: Patient oriented to person and somewhat to place (knows hes in a hospital) but not to time or situation. Cranial nerves II through XII grossly intact. Normal speech, normal gait. PSYCH: Somewhat agitated. Normal mood, normal affect. SKIN: Warm, Dry, normal turgor, no rashes or lesions noted. Course - Re-evaluation Re-evalutation: 11/22/19 16:48 The patient is medically cleared and awaiting on recommendations from psych for medication changes. The patient likely has a combination of dementia and psy chiatric mental health issues. 11/22/19 18:30 Psych saw the patient and they have made some medication change recommendations. Psych recommends the patient stop taking Klonopin, Seroquel, and Lyrica and that he start taking Depakote 250mg BID and Buspar 5mg BID. Patient's daughter given 2 weeks worth of the new medications and she was given follow up information for outpatient mental health and social work/case management since the patient may need higher level of care in the near future. - Vital Signs Vital signs: Temp Pulse Resp BP Pulse Ox 97.7 F 93 14 142/72 H 94 11/22/19 12:44 11/22/19 12:44 11/22/19 12:44 11/22/19 12:44 11/22/19 12:44 - Laboratory Result Diagrams: 11/22/19 13:40 11/22/19 13:40 Laboratory results interpreted by me: 11/22/19 11/22/19 11/22/19 13:40 13:40 15:17 RBC 4.26 L Hgb 12.0 L Hct 35.9 L RDW 14.6 H BUN 21 H AST 69 H Ammonia < 8.7 L Urine Protein Urine Blood 11/22/19 15:25 RBC Hgb Hct RDW BUN AST Ammonia Urine Protein 30 H Urine Blood SMALL H - Diagnostic Test Radiology reviewed: Image reviewed, Reports reviewed Discharge - Discharge Clinical Impression: Agitation Dementia Qualifiers: Dementia type: unspecified type Dementia behavioral disturbance: with behavioral disturbance Qualified Code(s): F03.91 - Unspecified dementia with behavioral disturbance Condition: Stable Disposition: HOME, SELF-CARE Instructions: Dementia ([facility]) Additional Instructions: Follow up with outpatient mental health and with outpatient case management / social work as well as with your primary care doctor. The Psychiatry team here feels you should stop taking Klonopin 0.5mg TID, Seroquel 25mg QHS, and Lyrica 50mg TID and you should start taking Depakote 250mg BID and Buspar 5mg BID. Prescriptions: Buspirone HCl [Buspar 10 mg Tablet] 5 mg PO BID #15 tablet Divalproex Sodium [Depakote] 250 mg PO BID #30 tablet. Referrals: AMAN COUCH PA-C [Primary Care Provider] - Follow up as needed
[2019-11-22] MEDS ORDERED: LORAZEPAM 1 MG TABLET PO ONE (15:43)
[2019-11-22 16:05] LABS: APPEARANCE,URINE SLIGHTLY-CLOUDY; BILIRUBIN,URINE NEGATIVE (NEGATIVE); COLOR,URINE YELLOW; GLUCOSE, URINE NEGATIVE (NEGATIVE); KETONES,URINE NEGATIVE (NEGATIVE); LEUKOCYTE ESTERASE,URINE NEGATIVE (NEGATIVE); NITRITE,URINE NEGATIVE (NEGATIVE); PROTEIN,URINE 30 mg/dL (NEGATIVE); URINE SPECIFIC GRAVITY 1.021; UROBILINOGEN,URINE NEGATIVE mg/dL (<2.0)
[2019-11-22 16:17] LABS: URINE AMPHETAMINES SCREEN NEGATIVE; URINE BARBITURATES SCREEN NEGATIVE; URINE COCAINE SCREEN NEGATIVE; URINE MARIJUANA (THC) SCREEN NEGATIVE; URINE METHADONE SCREEN NEGATIVE; URINE PHENCYCLIDINE SCREEN NEGATIVE
[2019-11-22 16:18] LABS: URINE BENZODIAZEPINES SCREEN UNCONFIRMED POSITIVE
--- NOTE | 2019-11-22 18:09 | PSYCHOLOGICAL NOTE ---
Psych Note - Psych Note Date seen by psych provider: 11/22/19 Time seen by psych provider: 16:52 - Discussion with ED John at [phone] evaluation with patient and daughter. Psych Note: Presenting Problem: Patient is a 69 year old male who presented to the [facility] ED today via POV/daughter for altered mental status. Chart review revealed patient had a Cerebral Vascular Accident (CVA) January 2019. Head MRI dated 02/19/2019 noted 3MM focus of restricted diffusion in the left parietal lobe cabrera white junction consistent with acute or subacute lacunar infarction. Acute Stroke. 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 In february 2019 he had a visit for falls and confusion. Leading up to CVA in September 2018 he presented for fall/dizziness and in April 2018 he presented with altered mental status. Patient and daughter (Annie) were present. Daughter described patient has "really hyper, poor sleep and increased confusion for the past week." She described a manic like state. They denied significant mental health history and previous mental health hospitalizations. Daughter stated she took patient to [facility] a few days ago because he thought someone was outside and kept going to the door to check. They noted an upcoming appointment with Primary Care Physician Dr. Moses tomorrow (11/23/2019) and neurology follow up (with female here in [place]) 12/21/2019. Patient was alert and oriented to self, person, place, and situation. Mood was euthymic with congruent affect, maybe a bit hypomanic. He did not make any suicidal or homicidal statements or gestures and these were not presenting concerns. Patient did not appear to be responding to internal stimuli as evidenced by fair eye contact, being engaged and answering questions when addressed. Thought processes are linear. Conversational speech was within normal limits for tone and prosody, and quick in rate but not quit pressured. Intellectual abilities are estimated to be average. Insight, judgment and impulse control were fair as evidenced by being easily redirected by daughter (at least during evaluation and in ED). 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 Janes GUILLERMO., includes: Discontinue Klonipin 0.5MG three times a day for anxiety Discontinue Seroquel 25MG at night for sleep Discontinue Lyrica 50MG three times a day likely for pain Add Depakote 250MG twice a day for mood stabilization Add Buspar 5MG twice a day for anxiety/calming effect/depression/sleep Impression/Plan: Patient is cleared from acute psychiatric services. Consulted to help with medication recommendations. Provided daughter with the Dementia/Elderly information ED Social Work hands out to include contact information for [facility] (put it all in a yellow envelope for daughter) and included Maxi Delgadillo's name and office number. Consulted with Dr. Monahan regarding the management and care of patient. ED Physician in agreement with recommendations.
[2019-11-22] MEDS ORDERED: DIVALPROEX SODIUM 250 MG TAB.SR.24H PO ONE (18:22)
[2019-11-22] MEDS ORDERED: BUSPIRONE HCL 10 MG TABLET PO ONE (18:23)
[2019-11-22 18:44] VITALS: BP 148/87
== END 2019-11-22 18:44 | disposition home or self-care (01) ==
LOC: ER 12:40
DX: R45.1 Restlessness and agitation (principal); F03.91 Unspecified dementia, unspecified severity, with behavioral disturbance; I10 Essential (primary) hypertension; E78.00 Pure hypercholesterolemia, unspecified; Z86.73 Personal history of transient ischemic attack (TIA), and cerebral infarction without residual deficits
CPT/HCPCS: 99285; 36415; 80307 ×2; 82140; 85025; 80053; 81001; 84484; 70450; A9270 ×3; J3490